=== PATIENT | male | born 1950 | race Caucasian/White ===

== ENCOUNTER → 2017-03-04 09:21 | Outpatient (CLI) | payer BC, SELFPAY ==
[2017-03-04 10:55] LABS: Absolute Lymphocyte Count 0.61 X10^3/ul (0.83-4.51); Absolute Neutrophil Count 3.1 X10^3/uL (2.0-7.7); Basophil# 0.02 X10^3/uL; Basophil% 0.5 % (0-1); Eosinophil# 0.04 X10^3/uL; Hematocrit 39.8 % (40-54); Hemoglobin 13.5 g/dl (13.0-16.5); Lymphocyte # 0.61 X10^3/ul (4.0); Lymphocyte % 14.8 % (19-41); Mean Corp Hgb Conc 33.9 g/gl (32-36); Mean Corpuscular Hgb 31.4 pg (27.0-32.0); Mean Corpuscular Volume 92.6 fL (80-94); Mean Platelet Vol. 10.2 fl (6.2-12.0); Monocyte# 0.34 X10^3/uL; Monocyte% 8.2 % (0-10); Neutrophil # 3.07 X10^3/uL (2.7-7.7); Neutrophil % 74.3 % (47-70); Platelet Count 174 K/mm3 (150-450); RBC Distribution Width CV 14.1 % (11.6-14.6); RBC Distribution Width SD 46.9 fl (35.1-43.9); White Blood Count 4.1 K/mm3 (4.4-11.0)
[2017-03-04 11:20] LABS: POSITIVE COUNT NO; POSITIVE DIFFERENTIAL NO; POSITIVE MORPHOLOGY NO
== END ==
PROVIDERS: Family Provider Family Medicine; PCP Family Medicine; Visit Provider Radiology Radiation Oncology
DX: R53.83 Other fatigue (principal)
CPT/HCPCS: 36415; 85025

== ENCOUNTER → 2017-05-15 10:16 | Outpatient (CLI) | payer BC, SELFPAY ==
[2017-05-15 12:08] LABS: Anion Gap 9 (5-15); BUN 15 mg/dL (7-18); BUN/Creat Ratio 13.6 RATIO (10-20); Calcium,Total 8.9 mg/dL (8.5-10.1); Chloride 106 mmol/L (98-107); EST Glomerular Filtration Rate 71 mL/min (>60); Est Glom Filt Rate - Afr Amer 85 mL/min (>60); Glucose 104 mg/dL (74-106); Sodium Level 140 mmol/L (136-145)
== END ==
PROVIDERS: Family Provider Family Medicine; PCP Family Medicine; Visit Provider Family Medicine
DX: I10 Essential (primary) hypertension (principal)
CPT/HCPCS: 36415; 80048

== ENCOUNTER → 2017-12-07 13:36 | Outpatient (CLI) | payer BC, SELFPAY ==
[2017-12-07 15:43] LABS: PSA,Total- Diagnostic < 0.01 ng/mL (0.0-4.0)
== END ==
PROVIDERS: Family Provider Family Medicine; PCP Family Medicine; Visit Provider Urology
DX: C61 Malignant neoplasm of prostate (principal)
CPT/HCPCS: 36415; 84153

== ENCOUNTER → 2018-05-04 11:22 | Outpatient (CLI) | payer BC, SELFPAY ==
[2018-05-04 15:07] LABS: Anion Gap 11 (5-15); BUN 13 mg/dL (7-18); BUN/Creat Ratio 12.1 RATIO (10-20); Calcium,Total 8.9 mg/dL (8.5-10.1); Chloride 107 mmol/L (98-107); Cholesterol 184 mg/dL (200); Creatinine, Serum 1.07 mg/dL (0.70-1.30); EST Glomerular Filtration Rate 73 mL/min (>60); Est Glom Filt Rate - Afr Amer 88 mL/min (>60); Glucose 86 mg/dL (74-106); High Density Lipoprotein 48 mg/dL; Potassium 3.9 mmol/L (3.5-5.1); Sodium Level 142 mmol/L (136-145); Triglycerides 124 mg/dL; Very Low Density Lipoprotein 25 mg/dL (5-40)
== END ==
PROVIDERS: Family Provider Family Medicine; PCP Family Medicine; Visit Provider Family Medicine
DX: I10 Essential (primary) hypertension (principal)
CPT/HCPCS: 36415; 80048; 80061

== ENCOUNTER → 2018-06-28 09:45 | Outpatient (CLI) | payer BC, SELFPAY ==
[2018-06-28 12:13] LABS: PSA,Total- Diagnostic < 0.01 ng/mL (0.0-4.0)
== END ==
PROVIDERS: Family Provider Family Medicine; PCP Family Medicine; Referring Provider Urology; Visit Provider Urology
DX: C61 Malignant neoplasm of prostate (principal); R97.20 Elevated prostate specific antigen [PSA]
CPT/HCPCS: 36415; 84153

== ENCOUNTER → 2019-10-10 08:24 | Outpatient (CLI) | payer MEDICARE, OTHER, SELFPAY ==
[2019-10-10 09:11] LABS: PSA,Total- Diagnostic 0.03 ng/mL (0.0-4.0)
== END ==
PROVIDERS: PCP Family Medicine; Referring Provider Urology; Visit Provider Urology
DX: C61 Malignant neoplasm of prostate (principal)
CPT/HCPCS: 36415; 84153

== ENCOUNTER → 2020-04-13 13:08 | Outpatient (CLI) | payer MEDICARE, OTHER, SELFPAY ==
[2020-04-13 15:59] LABS: PSA,Total- Diagnostic 0.26 ng/mL (0.0-4.0)
== END ==
PROVIDERS: PCP Family Medicine; Referring Provider Urology; Visit Provider Urology
DX: R97.20 Elevated prostate specific antigen [PSA] (principal)
CPT/HCPCS: 36415; 84153

== ENCOUNTER 2020-05-28 12:09 | Outpatient (RCR) | payer MEDICARE, OTHER, SELFPAY | END 2020-05-28 23:59 | LOC: IMMUN 12:09 | PROVIDERS: PCP Family Medicine; Referring Provider Family Medicine; Visit Provider Family Medicine | DX: Z23 Encounter for immunization (principal) | CPT/HCPCS: 0011A; 0012A ==

== ENCOUNTER → 2020-09-10 09:12 | Outpatient (CLI) | payer MEDICARE, OTHER, SELFPAY ==
[2020-09-10 10:34] LABS: PSA,Total- Diagnostic 0.38 ng/mL (0.0-4.0)
== END ==
PROVIDERS: PCP Family Medicine; Referring Provider Urology; Visit Provider Urology
DX: C61 Malignant neoplasm of prostate (principal)
CPT/HCPCS: 36415; 84153

== ENCOUNTER → 2020-11-23 15:47 | Outpatient (CLI) | payer MEDICARE, OTHER, SELFPAY ==
[2020-11-23 18:35] LABS: Anion Gap 6 (5-15); BUN 15 mg/dL (7-18); BUN/Creat Ratio 15.1 RATIO (10-20); Calcium,Total 9.3 mg/dL (8.5-10.1); Chloride 112 mmol/L (98-107); Cholesterol 144 mg/dL (200); Creatinine, Serum 0.99 mg/dL (0.70-1.30); EST Glomerular Filtration Rate 79 mL/min (>60); Est Glom Filt Rate - Afr Amer 95 mL/min (>60); Glucose 102 mg/dL (74-106); High Density Lipoprotein 41 mg/dL; Potassium 3.9 mmol/L (3.5-5.1); Sodium Level 144 mmol/L (136-145); Triglycerides 184 mg/dL; Very Low Density Lipoprotein 37 mg/dL (5-40)
[2020-11-23 18:52] LABS: Microalbumin,Random Urine 25.6 mg/L (NO RANGE EST.); Microalbumin:Creatinine Ratio 27.4 mg/g CRE (<30 mg/g CRE)
== END ==
PROVIDERS: PCP Family Medicine; Visit Provider Family Medicine
DX: I10 Essential (primary) hypertension (principal)
CPT/HCPCS: 36415; 80048; 80061; 82043; 82570

== ENCOUNTER → 2021-03-26 14:25 | Outpatient (CLI) | payer MEDICARE, OTHER, SELFPAY ==
[2021-03-26 18:50] LABS: PSA,Total- Diagnostic 0.78 ng/mL (0.0-4.0)
== END ==
PROVIDERS: PCP Family Medicine; Referring Provider Urology; Visit Provider Urology
DX: C61 Malignant neoplasm of prostate (principal)
CPT/HCPCS: 36415; 84153

== ENCOUNTER → 2021-08-12 | Outpatient (CLI) | payer MEDICARE, OTHER, SELFPAY ==
[2021-08-12 09:07] LABS: PSA,Total- Diagnostic 0.82 ng/mL (0.0-4.0)
== END | disposition home or self-care (01) ==
LOC: LAB 08:16
PROVIDERS: PCP Family Medicine; Referring Provider Urology; Visit Provider Urology
DX: C61 Malignant neoplasm of prostate (principal)
CPT/HCPCS: 36415; 84153

== ENCOUNTER → 2021-11-25 | Outpatient (CLI) | payer MEDICARE, OTHER, SELFPAY ==
[2021-11-25 13:05] LABS: Anion Gap 5 (5-15); BUN 13 mg/dL (7-18); BUN/Creat Ratio 12.4 RATIO (10-20); Calcium,Total 9.1 mg/dL (8.5-10.1); Chloride 108 mmol/L (98-107); Cholesterol 180 mg/dL (200); Creatinine, Serum 1.05 mg/dL (0.70-1.30); EST Glomerular Filtration Rate 74 mL/min (>60); Est Glom Filt Rate - Afr Amer 89 mL/min (>60); Glucose 93 mg/dL (74-106); High Density Lipoprotein 48 mg/dL; Potassium 4.1 mmol/L (3.5-5.1); Sodium Level 141 mmol/L (136-145); Triglycerides 134 mg/dL; Very Low Density Lipoprotein 27 mg/dL (5-40)
== END | disposition home or self-care (01) ==
LOC: MFPLAB 10:57
PROVIDERS: PCP Family Medicine; Visit Provider Family Medicine
DX: I10 Essential (primary) hypertension (principal)
CPT/HCPCS: 36415; 80048; 80061

== ENCOUNTER 2022-02-11 10:29 | Outpatient (CLI) | payer MEDICARE, OTHER, SELFPAY ==
[2022-02-11 11:46] LABS: PSA,Total- Diagnostic 0.97 ng/mL (0.0-4.0)
== END 2022-02-11 23:59 | disposition home or self-care (01) ==
LOC: LAB 10:31
PROVIDERS: PCP Family Medicine; Referring Provider Registered Nurse; Visit Provider Registered Nurse
DX: C61 Malignant neoplasm of prostate (principal)
CPT/HCPCS: 36415; 84153

== ENCOUNTER → 2022-08-11 | Outpatient (CLI) | payer MEDICARE, OTHER, SELFPAY ==
[2022-08-11 11:57] LABS: PSA,Total- Diagnostic 1.08 ng/mL (0.0-4.0)
== END | disposition home or self-care (01) ==
LOC: LAB 11:10
PROVIDERS: PCP Family Medicine; Referring Provider Urology; Visit Provider Urology
DX: C61 Malignant neoplasm of prostate (principal)
CPT/HCPCS: 36415; 84153

== ENCOUNTER → 2023-02-16 | Outpatient (CLI) | payer MEDICARE, OTHER, SELFPAY ==
[2023-02-17 09:29] LABS: PSA,Total- Diagnostic 0.94 ng/mL (0.0-4.0)
== END | disposition home or self-care (01) ==
PROVIDERS: PCP Family Medicine; Referring Provider Urology; Visit Provider Urology
DX: C61 Malignant neoplasm of prostate (principal); Z12.5 Encounter for screening for malignant neoplasm of prostate
CPT/HCPCS: 36415; 84153; G0103

== ENCOUNTER → 2023-06-02 | Outpatient (CLI) | payer MEDICARE, OTHER, SELFPAY ==
[2023-06-02 13:21] LABS: Protein, Urine (Random) 15.4 mg/dL (<11.9); Protein:Creat Ratio 143 mg/g CRE (0-200)
[2023-06-02 13:22] LABS: AST(SGOT) 20 U/L (15-37); Alanine Aminotransfer ALT/SGPT 26 U/L (16-61); Anion Gap 8 (5-15); BUN 14 mg/dL (7-18); BUN/Creat Ratio 13.6 RATIO (10-20); Calcium,Total 9.2 mg/dL (8.5-10.1); Chloride 107 mmol/L (98-107); Cholesterol 169 mg/dL (200); Creatinine, Serum 1.03 mg/dL (0.70-1.30); EST Glomerular Filtration Rate 75 mL/min (>60); Est Glom Filt Rate - Afr Amer 91 mL/min (>60); Glucose 108 mg/dL (74-106); High Density Lipoprotein 48 mg/dL; Potassium 4.3 mmol/L (3.5-5.1); Sodium Level 140 mmol/L (136-145); Triglycerides 60 mg/dL; Very Low Density Lipoprotein 12 mg/dL (5-40)
== END | disposition home or self-care (01) ==
LOC: MFPLAB 10:00
PROVIDERS: PCP Family Medicine; Visit Provider Family Medicine
DX: I10 Essential (primary) hypertension (principal)
CPT/HCPCS: 36415; 80048; 80061; 82570; 84156; 84450; 84460

== ENCOUNTER → 2023-08-26 | Outpatient (CLI) | payer MEDICARE, OTHER, SELFPAY ==
[2023-08-26 12:43] LABS: PSA,Total- Diagnostic 0.91 ng/mL (0.0-4.0)
== END | disposition home or self-care (01) ==
LOC: LAB 10:36
PROVIDERS: PCP Family Medicine; Visit Provider Nurse Practitioner
DX: C61 Malignant neoplasm of prostate (principal)
CPT/HCPCS: 36415; 84153

== ENCOUNTER → 2023-11-13 | Outpatient (CLI) | payer MEDICARE, OTHER, SELFPAY ==
--- NOTE | 2023-11-13 13:56 | CT_ITS ---
EXAM: CT PELVIS WITH INTRAVENOUS CONTRAST CLINICAL INDICATION: pelvic pain with defecation, S/P prostate radiation TECHNIQUE: Helically acquired images were obtained of the pelvis with intravenous contrast. This CT exam was performed using one or more of the following dose reduction techniques: automated exposure control, adjustment of the mA and/or kV according to patient size, and/or use of iterative reconstruction technique. CONTRAST: IV 100mL Isovue-300 COMPARISON: CT Pelvis dated 01/14/2017 and 11/10/2016 FINDINGS: KIDNEYS AND URETERS: 3 mm stone again noted within the lower pole of the right kidney. BOWEL: Diverticulosis of the colon noted without evidence of acute diverticulitis. No bowel distention. No rectal or perianal abnormality identified. APPENDIX: No evidence of acute appendicitis. INTRAPERITONEAL SPACE: Small volume ascites noted along the left lateral colonic gutter and within the pelvic portion of the peritoneal cavity. Interval development of nodularity of the greater omentum raises the possibility of peritoneal carcinomatosis. No free air. BLADDER: Urinary bladder is contracted and thick-walled. Fat stranding adjacent to the urinary bladder wall may represent acute or chronic cystitis. REPRODUCTIVE: Brachytherapy seeds noted within the prostate gland. No change in the size of the prostate. BONES/JOINTS: No suspicious lytic or blastic abnormality. SOFT TISSUES: See above. LYMPH NODES: Normal. No enlarged lymph nodes. CT/Pelvis WITH IV Contrast IMPRESSION: 1. Findings consistent with peritoneal carcinomatosis associated with small volume ascites. 2. Urinary cystitis. 3. Diverticulosis coli. 4. Right nephrolithiasis. Electronically Signed: Curtis Sharpe MD at 10:38 EDT ,
[2023-11-13 15:18] LABS: CREATININE FINGERSTICK < 1.0 mg/dL (0.70-1.30); EGFR FINGERSTICK > 60.0000 mL/min (>60)
== END | disposition home or self-care (01) ==
LOC: CT 13:55
PROVIDERS: PCP Family Medicine; Referring Provider Family Medicine; Visit Provider Family Medicine
DX: R39.89 Other symptoms and signs involving the genitourinary system (principal)
CPT/HCPCS: 72193; Q9967; A4216

== ENCOUNTER 2023-11-26 13:48 | Outpatient (CLI) | payer MEDICARE, OTHER, SELFPAY ==
[2023-11-26 15:06] LABS: Absolute Lymphocyte Count 0.82 X10^3/uL (0.83-4.51); Absolute Neutrophil Count 5.1 X10^3/uL (2.0-7.7); Basophil# 0.04 X10^3/uL; Basophil% 0.6 % (0-1); Eosinophil# 0.04 X10^3/uL; Eosinophils% 0.6 % (0-5); Hematocrit 39.4 % (40-54); Hemoglobin 12.5 g/dL (13.0-16.5); Lymphocyte # 0.82 X10^3/ul (0.83-4.51); Lymphocyte % 12.5 % (19-41); Mean Corp Hgb Conc 31.7 g/dL (32-36); Mean Corpuscular Hgb 29.4 pg (27.0-32.0); Mean Corpuscular Volume 92.7 fL (80-94); Mean Platelet Vol. 10.3 fl (6.2-12.0); Monocyte# 0.47 X10^3/uL; Monocyte% 7.2 % (0-10); NRBC Flagged by Analyzer 0 % (0-5); Neutrophil # 5.14 X10^3/uL (2.7-7.7); Neutrophil % 78.2 % (47-70); Platelet Count 325 K/mm3 (150-450); RBC Distribution Width SD 44.4 fl (35.1-43.9); Red Blood Count 4.25 M/mm3 (4.6-6.2); White Blood Count 6.6 K/mm3 (4.4-11.0)
[2023-11-26 15:32] LABS: ALB/GLOB Ratio 0.9 RATIO (0.9-2.4); AST(SGOT) 18 U/L (15-37); Alanine Aminotransfer ALT/SGPT 21 U/L (16-61); Albumin, Serum 3.2 g/dL (3.2-5.0); Alkaline Phosphatase 67 U/L (45-117); Anion Gap 5 (5-15); BUN 17 mg/dL (7-18); BUN/Creat Ratio 15.6 RATIO (10-20); Calcium,Total 9.3 mg/dL (8.5-10.1); Chloride 112 mmol/L (98-107); Creatinine, Serum 1.09 mg/dL (0.70-1.30); EST Glomerular Filtration Rate 70 mL/min (>60); Est Glom Filt Rate - Afr Amer 85 mL/min (>60); Globulin 3.4 g/dL (2.2-4.2); Glucose 99 mg/dL (74-106); Potassium 4.6 mmol/L (3.5-5.1); Protein, Total 6.6 g/dL (6.4-8.2); Sodium Level 143 mmol/L (136-145)
[2023-11-28 08:12] LABS: Carcinoembryonic Antigen 9.5 ng/mL (0.0-4.7)
== END 2023-11-26 23:59 | disposition home or self-care (01) ==
LOC: LAB 13:49
PROVIDERS: PCP Family Medicine; Referring Provider Surgery; Visit Provider Surgery
DX: C78.6 Secondary malignant neoplasm of retroperitoneum and peritoneum (principal); R18.8 Other ascites; R10.9 Unspecified abdominal pain; R93.5 Abnormal findings on diagnostic imaging of other abdominal regions, including retroperitoneum
CPT/HCPCS: 36415; 80053; 82378; 85025

== ENCOUNTER 2023-12-04 17:36 | Inpatient (IN) | payer MEDICARE, OTHER, SELFPAY ==
[2023-12-04] VITALS (8 sets, daily range): BP systolic 123–190; BP diastolic 75–102; PULSE 92–128; RESP 16–30; TEMP 36.1–36.6; O2SAT 94–98; BMI 30.4; BMI 30.2
--- NOTE | 2023-12-04 18:57 | EKG12_ITS ---
Test Reason : Blood Pressure : / mmHG Vent. Rate : 104 BPM Atrial Rate : 104 BPM P-R Int : 120 ms QRS Dur : 080 ms QT Int : 356 ms P-R-T Axes : 024 031 023 degrees QTc Int : 468 ms Sinus tachycardia with occasional Premature ventricular complexes Otherwise normal ECG Confirmed by NIKOLE WANG, EDUARD ([id number]), editor sound RYAN BUTCHER ([id number]) on 12/07/2023 6:48:29 AM Referred By: Confirmed By:EDUARD AGUSTIN MD
--- NOTE | 2023-12-04 18:59 | EDS_ITS ---
HPI History of Present Illness Chief Complaint: Chest Other Narrative Narrative: 73-year-old male past medical history of hypertension presents with his daughter for admission. He relates history that he was having discomfort when he would pass gas and was being worked up by his primary care provider. He had a CT of the pelvis which showed what he called concerning findings. He was referred to Dr. Oates, with general surgery. Patient states that he had a CT of the chest, abdomen, and pelvis performed as an outpatient at 3 PM today approximately 4 hours ago. While he was found to have carcinomatosis on the CT of the pelvis, he was also noted that he had pulmonary emboli on the CT of the chest. He denies any symptoms of pulmonary embolism including leg swelling, chest pain, or shortness of breath. Dr. Oates has reportedly already spoken with the hospitalist regarding admission to start a heparin drip so that he can be biopsied on Thursday. [facility] Medical History (Updated 12/04/23 @ 20:36 by David Schaefer MD) Abdominal carcinomatosis History of prostate cancer Obesity HLD (hyperlipidemia) Prostate CA HTN (hypertension) Ascites Home Medications ?Medication ?Instructions ?Recorded ?Last Taken ?Type amlodipine 5 mg tablet 5 mg PO QDAY 11/26/23 Unknown History hydrocortisone 2.5 % topical cream 1 applic topical Q6H PRN 11/26/23 Unknown History with perineal applicator hemorrhoids (Procto-Med HC) lisinopril 20 mg tablet 20 mg PO QDAY 11/26/23 Unknown History multivitamin 1 tab PO DAILY 11/26/23 Unknown History Allergy/AdvReac Type Severity Reaction Status Date / Time No Known Allergies Allergy Verified 12/04/23 17:37 Social History Smoking Status: Former smoker alcohol intake: current alcohol intake frequency: a few times a week ROS ROS ED ROS Narrative Constitutional: No fever, no chills. HEENT: No sore throat. No neck pain. No loss of vision. No rhinorrhea. Cardiovascular: No chest pain. No palpitations. No pedal edema. Respiratory: No cough, no shortness of breath. Abdominal: Positive pelvic/abdominal pain or discomfort. Relieved after passing gas. No nausea. No vomiting. Genitourinary: No dysuria. No hematuria. Musculoskeletal: No myalgias. No arthralgias. Neurologic: No headaches. No dizziness. No lightheadedness. Skin: No rash. No change in color. Psychiatric: No depression. No anxiety. EXAM Physical Exam Narrative Exam Narrative: Afebrile. Vital signs noted. HEENT: Normocephalic. Atraumatic. PERRL, EOMI. Neck soft and supple. No point tenderness or step off. Cardiovascular: Regular rate and rhythm with intermittent tachycardia. No murmurs, rubs, or gallops appreciated. Respiratory: No tachypnea. Lungs clear to auscultation bilaterally. Gastrointestinal: Abdomen soft, nontender, with normoactive bowel sounds. No rebound or guarding. Neurological: Awake. Alert. Nonfocal, nonlateralizing. Skin: No rash. Normal color. No pallor. Musculoskeletal: No pedal edema. Full range of motion extremities. Const Vital Signs: 12/04/23 17:37 12/04/23 19:06 12/04/23 19:36 Temperature 96.9 F L Temperature Source Temporal Pulse Rate 92 108 H Respiratory Rate 18 25 H Respiratory Effort Normal Non-Labored Blood Pressure 123/102 H 160/75 H Blood Pressure Mean 109 103 Pulse Ox 96 94 Oxygen Delivery Method Room Air Room Air 12/04/23 20:25 Temperature 97.8 F Temperature Source Pulse Rate 108 H Respiratory Rate 24 H Respiratory Effort Blood Pressure 160/75 H Blood Pressure Mean 103 Pulse Ox 94 Oxygen Delivery Method MDM MDM MDM Narrative Medical decision making narrative: I reviewed the patient's outpatient CT and he does have pulmonary emboli. He is asymptomatic with them. I ordered the heparin drip along with coagulation studies. I will also troponin and EKG. I will obtain baseline laboratories as well to check his platelet count and hemoglobin currently. I will then discussed patient with the hospitalist, Dr. Hamilton for admission. EKG was obtained and interpreted by myself independently as sinus tachycardia with PVCs at 104 bpm but no acute ST changes. No STEMI. I reviewed his laboratory work and he has normal white count of 7.5, hemoglobin stable at 12.5 with platelet count normal at 328. INR 1.2 with a PTT 31.1. Electrolyte panel is grossly unremarkable with normal sodium and normal potassium, glucose 97. High-sensitivity troponin is 7. Patient was started on a heparin drip. I discussed patient with Dr. Erendira Hamitlon for admission to the PCU. He is in stable condition. History & Record Review Discussion w/independent historian: Patient Lab Data Attestation: I reviewed the patient's lab results. Labs: Laboratory Results - last 24 hr 12/04/23 19:09 WBC 7.5 RBC 4.36 L Hgb 12.5 L Hct 39.0 L MCV 89.4 MCH 28.7 MCHC 32.1 RDW Std Deviation 41.4 RDW Coeff of [place] 12.6 Plt Count 328 MPV 9.6 Immature Gran % (Auto) 0.900 Neut % (Auto) 78.2 H Lymph % (Auto) 11.9 L [place] % (Auto) 7.8 Eos % (Auto) 0.7 Baso % (Auto) 0.5 Absolute Neuts (auto) 5.9 Absolute Lymphs (auto) 0.90 Nucleated RBC % 0 PT 15.3 H INR 1.2 APTT 31.1 Sodium 136 Potassium 3.9 Chloride 104 Carbon Dioxide 23.0 Anion Gap 9 BUN 13 Creatinine 0.98 Estim Creat Clear Calc 71.33 Est GFR (MDRD) Af Amer 96 Est GFR (MDRD) Non-Af 80 BUN/Creatinine Ratio 13.3 Glucose 97 Calcium 9.2 Total Bilirubin 0.40 AST 26 ALT 20 Alkaline Phosphatase 64 Troponin I High Sens 7 Total Protein 7.4 Albumin 3.5 Globulin 3.9 Albumin/Globulin Ratio 0.9 Discharge Plan Dx/Rx/DC Orders Clinical Impression: Abnormal CT scan, pelvis, HTN (hypertension), Acute pulmonary embolism, Carcinomatosis Disposition Disposition: Acute Care Hospital [facility]
[2023-12-04 19:18] LABS: Absolute Neutrophil Count 5.9 X10^3/uL (2.0-7.7); Basophil# 0.04 X10^3/uL; Basophil% 0.5 % (0-1); Eosinophil# 0.05 X10^3/uL; Eosinophils% 0.7 % (0-5); Hemoglobin 12.5 g/dL (13.0-16.5); Lymphocyte % 11.9 % (19-41); Mean Corp Hgb Conc 32.1 g/dL (32-36); Mean Corpuscular Hgb 28.7 pg (27.0-32.0); Mean Corpuscular Volume 89.4 fL (80-94); Mean Platelet Vol. 9.6 fl (6.2-12.0); Monocyte# 0.59 X10^3/uL; Monocyte% 7.8 % (0-10); NRBC Flagged by Analyzer 0 % (0-5); Neutrophil # 5.89 X10^3/uL (2.7-7.7); Neutrophil % 78.2 % (47-70); Platelet Count 328 K/mm3 (150-450); RBC Distribution Width CV 12.6 % (11.6-14.6); RBC Distribution Width SD 41.4 fl (35.1-43.9); Red Blood Count 4.36 M/mm3 (4.6-6.2); White Blood Count 7.5 K/mm3 (4.4-11.0)
[2023-12-04] MEDS: HEPARIN/D5w 25,000 UNITS 25,000 UNITS/250 ML IV.SOLN. 10 UNITS CONT INF ×2 (19:20)
[2023-12-04] MEDS: Heparin Injection (Vial) 5,000 UNIT/ML VIAL 4000 UNIT IV (19:21)
[2023-12-04 19:29] LABS: International Normalized Ratio 1.2; Prothrombin Time (Protime)PT. 15.3 SECONDS (11.7-14.9)
[2023-12-04 19:30] LABS: Partial Thromboplast Time 31.1 Seconds (24.1-36.2)
[2023-12-04 19:44] LABS: ALB/GLOB Ratio 0.9 RATIO (0.9-2.4); AST(SGOT) 26 U/L (15-37); Alanine Aminotransfer ALT/SGPT 20 U/L (16-61); Albumin, Serum 3.5 g/dL (3.2-5.0); Alkaline Phosphatase 64 U/L (45-117); Anion Gap 9 (5-15); BUN 13 mg/dL (7-18); BUN/Creat Ratio 13.3 RATIO (10-20); Calcium,Total 9.2 mg/dL (8.5-10.1); Chloride 104 mmol/L (98-107); Creatinine, Serum 0.98 mg/dL (0.70-1.30); EST Glomerular Filtration Rate 80 mL/min (>60); Est Glom Filt Rate - Afr Amer 96 mL/min (>60); Estimated Creatinine Clearance 71.33 ml/min; Globulin 3.9 g/dL (2.2-4.2); Glucose 97 mg/dL (74-106); Potassium 3.9 mmol/L (3.5-5.1); Protein, Total 7.4 g/dL (6.4-8.2); Sodium Level 136 mmol/L (136-145); Troponin-I HS 7 pg/mL (3.0-78.0)
--- NOTE | 2023-12-04 20:31 | PCM.HP.STD ---
HPI - General General Date of Admission: 12/04/23 Date of Service: 12/04/23 Chief Complaint: Output CT w/ + PEs HPI Narrative The patient is a 73 y/o M w/ PMHx: EtOH abuse (4 beers daily), Obesity, Hx Prostate CA status post radiation/chemotherapy diagnosed in 2017 considered in remission, HTN, HLD, Chronic normocytic anemia who presents to the [facility] ED on 12/04/23 per recommendation of his general surgeon Dr. Oates with history of ongoing abdominal pain with known history of prostate cancer with outpatient CT chest/abdomen/pelvis with contrast with positive pulmonary emboli in the segmental and subsegmental pulmonary artery branches to the right middle and lower lobes, pleural-based 11 mm nodule superior segment right lower lobe with adjacent pleural thickening as well as abdominal ascites with anterior peritoneal cake formation suspicious for metastatic disease and prior to this recent pelvis CT 11/13/2023 which had been obtained per his PCP with noted findings consistent with peritoneal carcinomatosis associate with small volume ascites with referral to surgery for consideration of biopsy at that time but given noted pulmonary emboli prompted referral to the ED for treatment and future consideration of biopsy. Patient notes persistent abdominal discomfort ranging from cramping to aching with fullness sensation this been ongoing which prompted his recent evaluation. In the ED patient initiated on heparin with bolus. Workup in the ED included T96.9, heart rate 92, BP 123/102, respiratory rate 18, 96% on room air with most recent repeat vitals heart rate 108, BP 160/75, respiratory rate 24, 94% on room air, CBC with WBC 7.5, hemoglobin 12.5, MCV 89.4, platelet 328 without shift, unremarkable coags aside PT 15.3, CMP not marked appearing, troponin 7, EKG w/ ST with no acute evidence of ischemia w/ PVC. In the ED patient initiated on heparin drip with bolus. [facility] Medical History ETOH abuse Abdominal carcinomatosis History of prostate cancer Obesity HLD (hyperlipidemia) Prostate CA HTN (hypertension) Ascites Home Medications ?Medication ?Instructions ?Recorded ?Last Taken ?Type amlodipine 5 mg tablet 5 mg PO QDAY 11/26/23 Unknown History hydrocortisone 2.5 % topical cream 1 applic topical Q6H PRN 11/26/23 Unknown History with perineal applicator hemorrhoids (Procto-Med ) lisinopril 20 mg tablet 20 mg PO QDAY 11/26/23 Unknown History multivitamin 1 tab PO DAILY 11/26/23 Unknown History Allergy/AdvReac Type Severity Reaction Status Date / Time No Known Allergies Allergy Verified 12/04/23 17:37 Family History (Updated 12/04/23 @ 22:[address] Erendira Hamilton MD) Mother Cancer Father Prostate cancer Surgical History No history of previous surgery Social History (Updated 12/04/23 @ 22:[address] Erendira Hamilton MD) household members: spouse Smoking Status: Former smoker how long ago did patient quit smoking: Quit 1979, smoked 1 ppd since teen until quit. alcohol intake: current alcohol intake frequency: 3 or more drinks per day details: Reports 4 beers or 2-24 ounce beers daily. substance use type: does not use ROS ROS Narrative Admission Review of Systems: CONSTITUTIONAL: No weight loss, fever, chills, + weakness or fatigue. HEENT: Eyes: No visual loss, blurred vision, double vision or yellow sclerae. Ears, Nose, Throat: No hearing loss, sneezing, congestion, runny nose or sore throat. SKIN: No rash or itching, lesions, wounds. CARDIOVASCULAR: No chest pain, chest pressure or chest discomfort, palpitations, edema, orthopnea, syncopal events. RESPIRATORY: No shortness of breath, cough or sputum, wheezing, hemoptysis. GASTROINTESTINAL: + anorexia, abdominal pain, abdominal fullness. No nausea, vomiting, diarrhea, melena, BRBPR. GENITOURINARY: No dysuria, frequency, urgency or retention. NEUROLOGICAL: No headache, dizziness, syncope, paralysis, ataxia, numbness or tingling in the extremities, focal weakness, change in bowel or bladder control, seizure. MUSCULOSKELETAL: + muscle, back pain, joint pain or stiffness. HEMATOLOGIC: + anemia. No bleeding or bruising. LYMPHATICS: No enlarged nodes. No history of splenectomy. PSYCHIATRIC: No history of depression or anxiety. ENDOCRINOLOGIC: No reports of sweating, cold or heat intolerance. No polyuria or polydipsia. ALLERGIES: No history of asthma, hives, eczema or rhinitis. Vital Signs Vital Signs Vital Signs: 12/04/23 17:37 12/04/23 19:06 12/04/23 19:36 Temperature 96.9 F L Temperature Source Temporal Pulse Rate 92 108 H Respiratory Rate 18 25 H Respiratory Effort Normal Non-Labored Blood Pressure 123/102 H 160/75 H Blood Pressure Mean 109 103 Pulse Ox 96 94 Oxygen Delivery Method Room Air Room Air 12/04/23 20:25 Temperature 97.8 F Temperature Source Pulse Rate 108 H Respiratory Rate 24 H Respiratory Effort Blood Pressure 160/75 H Blood Pressure Mean 103 Pulse Ox 94 Oxygen Delivery Method Weight Weight: 200 lb 9.6 oz Body Mass Index (BMI) 30.4 Physical Exam Narrative Physical Examination: General: Awake, alert, oriented x 3 and cooperative, seated upright in the ED bed, denying any acute complaints currently. Skin: Normal color, normal turgor, no icterus, no cyanosis. HEENT: AT/NC, EOMI, PERRLA, mildly dry MM, no carotid bruits or JVD noted. Lungs: Mildly diminished, greater bases, appropriate effort, no rales, ronchi or wheezing. Heart: Mildly tachycardic with regular rhythm; no gallop, rub audible. Abdomen: Soft, NTTP, mildly distended, some tympany, no fluid wave elicited, difficult discern HSM given distention. Extremities: No cyanosis, clubbing, or edema. No discomfort to palpation of bilateral calfs. Neurological: Patient awake, alert, oriented as noted, cognitive function intact; pupils equally reactive to light and accommodation, cranial nerves grossly normal, moving all 4 extremities, no focal deficits, strength mildly to moderately globally decreased Psychiatric: Affect appears fatigued otherwise normal, no acute evidence of depressive or anxiety feelings. Results Lab / Micro Data 12/04/23 19:09 12/04/23 19:09 Labs: Laboratory Results - last 24 hr 12/04/23 19:09: WBC 7.5, RBC 4.36 L, Hgb 12.5 L, Hct 39.0 L, MCV 89.4, MCH 28.7, MCHC 32.1, RDW Std Deviation 41.4, RDW Coeff of [place] 12.6, Plt Count 328, MPV 9.6, Immature Gran % (Auto) 0.900, Neut % (Auto) 78.2 H, Lymph % (Auto) 11.9 L, [place] % (Auto) 7.8, Eos % (Auto) 0.7, Baso % (Auto) 0.5, Absolute Neuts (auto) 5.9, Absolute Lymphs (auto) 0.90, Nucleated RBC % 0, PT 15.3 H, INR 1.2, APTT 31.1, Sodium 136, Potassium 3.9, Chloride 104, Carbon Dioxide 23.0, Anion Gap 9, BUN 13, Creatinine 0.98, Estim Creat Clear Calc 71.33, Est GFR (MDRD) Af Amer 96, Est GFR (MDRD) Non-Af 80, BUN/Creatinine Ratio 13.3, Glucose 97, Calcium 9.2, Total Bilirubin 0.40, AST 26, ALT 20, Alkaline Phosphatase 64, Troponin I High Sens 7, Total Protein 7.4, Albumin 3.5, Globulin 3.9, Albumin/Globulin Ratio 0.9 Assessment & Plan Assessment/Plan (1) Acute pulmonary embolism: PLAN: Plan The patient is a 73 y/o M w/ PMHx: EtOH abuse (4 beers daily), Obesity, Hx Prostate CA status post radiation/chemotherapy diagnosed in 2017 considered in remission, HTN, HLD, Chronic normocytic anemia who presents to the [facility] ED on 12/04/23 per recommendation of his general surgeon Dr. Oates with history of ongoing abdominal pain with known history of prostate cancer with outpatient CT chest/abdomen/pelvis with contrast with positive pulmonary emboli in the segmental and subsegmental pulmonary artery branches to the right middle and lower lobes, pleural-based 11 mm nodule superior segment right lower lobe with adjacent pleural thickening as well as abdominal ascites with anterior peritoneal cake formation suspicious for metastatic disease prompting referral for PE evaluation. #1. Acute pulmonary Embolism in the setting of recently noted right lower lobe adjacent pleural thickening, abdominal ascites and anterior peritoneal caking suspicious for metastatic disease of unclear etiology with persistent ongoing abdominal discomfort and fullness: EKG without acute findings, outpatient CT with noted pulmonary emboli, oxygenation currently 94% in the ED with mild tachycardia and tachypnea, troponin 7, EKG w/ ST with no acute evidence of ischemia w/ PVC. Given presentation with peritoneal carcinomatosis this certainly is his risk factor for emboli. Will admit to PCU, maintain on cardiac telemetry. Will obtain ECHO, BNP. Will continue therapeutic heparin drip regimen with pending AM insurance oral regimen investigation but also patient with need for biopsy thus would be best to continue heparin drip until biopsy able to be obtained and then transition to oral anticoagulant at that time. Will consult his general surgeon Dr. Oates. #2. Chronic normocytic anemia: Admission hemoglobin 12.5, MCV 89.4, baseline hemoglobin most recently prior 11/26/2019 412.5 and prior to this in the 13 range however this is remotely from 2017, will continue to trend CBC. #3. History of prostate cancer: Diagnosed in 2017, status post chemotherapy and radiation, patient notes it had been considered in remission #4. Hypertension: Continue home regimen including lisinopril, amlodipine, PRN hydralazine. #5. Hyperlipidemia: Not on regimen, defer to outpatient. #6. Obesity: Weight loss and lifestyle changes encouraged. #7. EtOH Abuse: Patient notes routine consumption of at least 2-24 ounce beers daily per day. Recommended decreasing this amount which was discussed at length. Will maintain on CIWA protocol to be cautious although patient denies any previous withdrawal symptoms, MVI, thiamine and folic acid. Case management consulted. #8. DVT prophylaxis: Will continue heparin drip as noted. #9. CODE status: Patient notes his medical decision maker would be his if necessary. Discussed CODE status at length including difference between FULL code, DNR-CCA and DNR-CC status. Following discussions about the differences in these status, requested Full Code status. Advanced Care Planning Face to Face Time: 16 minutes. Charges/Coding Visit Charges Inpatient E&M: 16035 Init Hosp L3 Procedures Hospitalists Procedures: 56032 Advncd Care Plan 30 Min
[2023-12-04 21:03] LABS: Magnesium 2.3 mg/dL (1.6-2.6)
[2023-12-04 21:08] LABS: BNP,B-Type NATRIURETIC PEPTIDE 44.2 pg/mL (0-100)
--- NOTE | 2023-12-04 21:46 | ECHOD_ITS ---
Reason For Study: PULMONARY EMBOLISM Procedure This was a 2D Doppler, Color Flow transthoracic echocardiogram. RV Strain attempted, but unable to accurately track images. Exam performed in department. Left Ventricle Normal LV size. Left ventricular systolic function is normal. The left ventricular ejection fraction is 65 %. Stage 1 diastolic dysfunction. No regional wall motion abnormalities noted. Right Ventricle Normal RV size. Normal systolic function. Atria Normal left atrium. Normal right atrium. Mitral Valve Normal mitral valve. Tricuspid Valve Normal tricuspid valve. Mild (1+) tricuspid valve insufficiency. Pulmonary artery systolic pressure is 36 mmHg. Aortic Valve Normal aortic valve. Trisinus/trileaflet aortic valve. Pulmonic Valve Normal pulmonic valve. Great Vessels Normal aortic root. Pericardium/Pleural No pericardial effusion. MMode/2D Measurements & Calculations LVIDd: 4.5 cm IVSd: 1.3 cm LVOT diam: 2.0 cm LVIDs: 2.5 cm LVPWd: 1.2 cm LVOT area: 3.0 cm2 RVDd: 4.4 cm FS: 44.9 % Ao root diam: 3.3 cm LAV(MOD-bp): 56.4 ml LVAd ap4: 21.9 cm2 LAV(MOD-bp) Indexed: 27.7 ml/m2 LVLd ap4: 7.0 cm LAV(MOD-sp2): 55.2 ml EDV(MOD-sp4): 56.3 ml LAV(MOD-sp4): 51.2 ml EDV(sp4-el): 58.0 ml LVAs ap4: 11.4 cm2 LVLs ap4: 5.9 cm ESV(MOD-sp4): 20.6 ml ESV(sp4-el): 18.9 ml EF(MOD-sp4): 63.5 % EF(sp4-el): 67.4 % LVAd ap2: 20.9 cm2 SV(MOD-sp4): 35.8 ml SV(MOD-sp2): 38.8 ml LVLd ap2: 6.7 cm EDV(MOD-sp2): 55.0 ml EDV(sp2-el): 55.1 ml LVAs ap2: 9.8 cm2 LVLs ap2: 5.4 cm ESV(MOD-sp2): 16.2 ml ESV(sp2-el): 15.0 ml EF(MOD-sp2): 70.6 % SV(sp4-el): 39.1 ml LA dimension(2D): 4.0 cm LA A4 area: 18.7 cm2 RA A4 area: 15.4 cm2 TAPSE: 2.3 cm Time Measurements MV dec time: 0.16 sec Doppler Measurements & Calculations MV E max kyaw: 74.5 cm/sec Lat Peak E' Kyaw: 10.3 cm/sec Med Peak E' Kyaw: 8.6 cm/sec MV A max kyaw: 76.7 cm/sec E/E' lat: 7.3 E/E' med: 8.7 MV E/A: 0.97 Ao V2 max: 132.7 cm/sec LV V1 max: 105.5 cm/sec MV dec slope: 465.6 cm/sec2 Ao max P.0 mmHg LV V1 max P.4 mmHg Ao V2 mean: 99.5 cm/sec LV V1 mean P.2 mmHg Ao mean P.2 mmHg LV V1 mean: 69.2 cm/sec Ao V2 VTI: 20.5 cm LV V1 VTI: 18.2 cm AV (velocity ratio): 0.89 CORIE(I,D): 2.7 cm2 CORIE(V,D): 2.4 cm2 SV(LVOT): 55.4 ml PA V2 max: 96.5 cm/sec TR max kyaw: 287.2 cm/sec PA max PG (full): 1.1 mmHg TR max P.0 mmHg ECHO/Echo Complete Interpretation Summary The left ventricular ejection fraction is 65 %. Left ventricular systolic function is normal. Normal LV size. Stage 1 diastolic dysfunction. Mild (1+) tricuspid valve insufficiency. Pulmonary artery systolic pressure is 36 mmHg. Ordering Physician: Erendira Hamilton Referring Physician: Enedina Chaudhary M.D. Performed By: Yumiko Washington RDCS
[2023-12-04] MEDS: 0.9% Normal Saline (1000mL) 1,000 ML 100 ML IV (23:16)
[2023-12-05 01:43] LABS: Partial Thromboplast Time 42.2 Seconds (24.1-36.2)
[2023-12-05 03:35] VITALS: BP 134/72; PULSE 88; RESP 18; TEMP 36.1; O2SAT 97
[2023-12-05 04:54] VITALS: BMI 30.2
--- NOTE | 2023-12-05 06:49 | CON.PCM.SX_ITS ---
Assessment & Plan Assessment/Plan (1) Abnormal CT scan, pelvis: (2) Umbilical hernia: PLAN: Plan The patient had an abnormal CT scans concerning for carcinomatosis with omental caking. The patient also has an umbilical hernia and it appears some of this fat is protruding through the hernia. I would like to take the patient Thursday for surgery to biopsy some of this omentum through the umbilical hernia and repair the umbilical hernia in the process. I will also try to drain what ever ascites I can suction for cytology. Patient is agreeable. I will add him on for Thursday for surgery. Continue heparin drip until 6 hours before surgery. Zack Oates MD Pager: [facility] [address] [place] [address], [address] [place] [address] Office: HPI Consult Data Date of Consult: 12/05/23 HPI Narrative HPI Narrative: JACOB FISCHER, is a 73 M who presents with PE after CT scan. The patient was sent to my office for carcinomatosis on a CT scan for biopsy. He was scheduled for biopsy and a CT scan of his chest abdomen pelvis. CT scan of his chest revealed PEs and so he was sent to the emergency room and admitted and placed on a heparin drip. Patient has no new complaints at this time. He is not complaining of shortness of breath or chest pain. [facility] Medical History ETOH abuse Abdominal carcinomatosis History of prostate cancer Obesity HLD (hyperlipidemia) Prostate CA HTN (hypertension) Ascites Home Medications ?Medication ?Instructions ?Recorded ?Last Taken ?Type amlodipine 5 mg tablet 5 mg PO QDAY 11/26/23 Unknown History hydrocortisone 2.5 % topical cream 1 applic topical Q6H PRN 11/26/23 Unknown History with perineal applicator hemorrhoids (Pro[facility]o-[facility] HC) lisinopril 20 mg tablet 20 mg PO QDAY 11/26/23 Unknown History multivitamin 1 tab PO DAILY 11/26/23 Unknown History Allergy/AdvReac Type Severity Reaction Status Date / Time No Known Allergies Allergy Verified 12/04/23 17:37 Family History (Updated 12/04/23 @ 22:[address] Erendira Hamilton MD) Mother Cancer Father Prostate cancer Surgical History No history of previous surgery Social History (Updated 12/04/23 @ 22:[address] Erendira Hamilton MD) household members: spouse Smoking Status: Former smoker how long ago did patient quit smoking: Quit 1979, smoked 1 ppd since teen until quit. alcohol intake: current alcohol intake frequency: 3 or more drinks per day details: Reports 4 beers or 2-24 ounce beers daily. substance use type: does not use ROS Constitutional Constitutional: Denies anorexia, chills or fatigue Eyes Eyes: Denies blurry vision ENT HEENT: Denies abnormal hearing Cardiovascular Cardiovascular: Denies chest pain or dyspnea Respiratory/Chest Respiratory/Chest: Denies cough or dyspnea Gastrointestinal Gastrointestinal: Reports abdominal pain; Denies diarrhea, dysphagia, nausea or vomiting Genitourinary Genitourinary: Denies change in urinary stream Musculoskeletal Musculoskeletal: Denies difficulty walking Integumentary Integumentary: Denies jaundice Neurologic Neurologic: Denies dizziness Psychiatric Psychiatric: Denies anxiety or depression Endocrine Endocrinology: Denies flushing Physical Exam Const alert and oriented x3 HEENT normocephalic Head and Scalp: normal to inspection Eyes PERRL Neck full ROM Chest inspection of chest normal Resp normal respiratory effort Cardio Rate: regular rate Rhythm: regular rhythm GI soft to palpation Inspection: abdominal distention Palpation: hernia umbilical Extremity normal to inspection Lab / Micro Data 12/04/23 19:09 12/04/23 19:09 Labs: Laboratory Results - last 24 hr 12/04/23 19:09: WBC 7.5, RBC 4.36 L, Hgb 12.5 L, Hct 39.0 L, MCV 89.4, MCH 28.7, MCHC 32.1, RDW Std Deviation 41.4, RDW Coeff of [place] 12.6, Plt Count 328, MPV 9.6, Immature Gran % (Auto) 0.900, Neut % (Auto) 78.2 H, Lymph % (Auto) 11.9 L, [place] % (Auto) 7.8, Eos % (Auto) 0.7, Baso % (Auto) 0.5, Absolute Neuts (auto) 5.9, Absolute Lymphs (auto) 0.90, Nucleated RBC % 0, PT 15.3 H, INR 1.2, APTT 31.1, Sodium 136, Potassium 3.9, Chloride 104, Carbon Dioxide 23.0, Anion Gap 9, BUN 13, Creatinine 0.98, Estim Creat Clear Calc 71.33, Est GFR (MDRD) Af Amer 96, Est GFR (MDRD) Non-Af 80, BUN/Creatinine Ratio 13.3, Glucose 97, Calcium 9.2, Magnesium 2.3, Total Bilirubin 0.40, AST 26, ALT 20, Alkaline Phosphatase 64, Troponin I High Sens 7, B-Natriuretic Peptide 44.2, Total Protein 7.4, Albumin 3.5, Globulin 3.9, Albumin/Globulin Ratio 0.9 12/05/23 01:25: APTT 42.2 H
[2023-12-05 07:56] VITALS: O2SAT 97
--- NOTE | 2023-12-05 07:58 | PN.HOSP_ITS ---
Reason for Visit Reason for Visit: Diagnoses Other pulmonary embolism without acute cor pulmonale (12/04/23) Umbilical hernia without obstruction or gangrene (12/04/23) Abnormal findings on diagnostic imaging of other abdominal regions, including retroperitoneum (12/04/23) Objective Data Objective Data Vital Signs: Vital Signs Temp Pulse Resp BP Pulse Ox O2 Del Method 97.0 F L 88 18 134/72 H 97 Room Air 12/05/23 03:35 12/05/23 03:35 12/05/23 03:35 12/05/23 03:35 12/05/23 03:35 12/05/23 03:35 Oxygen Delivery Method Room Air Weight: 198 lb 10.184 oz Body Mass Index (BMI) 30.2 Intake & Output: Intake and Output for Last 24 Hours 12/03/23 12/04/23 12/05/23 23:59 23:59 23:59 Intake Total 816.67 / 816.67 Balance 816.67 / 816.67 Lab / Micro Data 12/05/23 07:35 12/05/23 07:35 Labs: Laboratory Results - last 24 hr 12/04/23 19:09: WBC 7.5, RBC 4.36 L, Hgb 12.5 L, Hct 39.0 L, MCV 89.4, MCH 28.7, MCHC 32.1, RDW Std Deviation 41.4, RDW Coeff of [place] 12.6, Plt Count 328, MPV 9.6, Immature Gran % (Auto) 0.900, Neut % (Auto) 78.2 H, Lymph % (Auto) 11.9 L, [place] % (Auto) 7.8, Eos % (Auto) 0.7, Baso % (Auto) 0.5, Absolute Neuts (auto) 5.9, Absolute Lymphs (auto) 0.90, Nucleated RBC % 0, PT 15.3 H, INR 1.2, APTT 31.1, Sodium 136, Potassium 3.9, Chloride 104, Carbon Dioxide 23.0, Anion Gap 9, BUN 13, Creatinine 0.98, Estim Creat Clear Calc 71.33, Est GFR (MDRD) Af Amer 96, Est GFR (MDRD) Non-Af 80, BUN/Creatinine Ratio 13.3, Glucose 97, Calcium 9.2, Magnesium 2.3, Total Bilirubin 0.40, AST 26, ALT 20, Alkaline Phosphatase 64, Troponin I High Sens 7, B-Natriuretic Peptide 44.2, Total Protein 7.4, Albumin 3.5, Globulin 3.9, Albumin/Globulin Ratio 0.9 12/05/23 01:25: APTT 42.2 H Physical Exam Narrative Seen and examined. Patient admitted for diagnosed bilateral segmental/subsegmental PE on CTPA with no acute symptoms related to chest including chest pain or shortness of breath or syncope. Patient further said that he has history of prostate cancer but was treated with radiotherapy and in remission by Dr. Dumas. He states that he learned to urinate every 4 hours to avoid urine retention and feeling of hesitancy or difficulty in starting the urinary stream. Denies burning micturition. This problem has not been evaluated by urologist. Has chronic lower abdominal/suprapubic pressure/pain intermittently and it goes away with passing gas. Physical exam: General: Alert, Oriented x3, Cooperative HEENT: Atraumatic, PERRLA, EOMI, Normocephalic Oral: No Gingival or Mucosal Lesions/ Ulcerations Neck: Supple, No JVD, Negative Carotid Bruits Chest wall/Lungs: Air entry equal in bilateral lung bases. No crepitation/rhonchi Cardiovascular: Regular rate, Regular Rhythm, Normal S1, Normal S2, No M/G/R Abdomen: Small umbilical hernia, reducible. Bowel Sounds Present, Soft, Non Tender, Non-Distended : No dysuria. No renal angle tenderness. No suprapubic tenderness. Extremities: No edema, Capillary Refill Less than 3 Seconds Skin: No rashes, No breakdown Musculoskeletal: No Tenderness to Palpation of Joints or Extremities. ROM full and intact Neurological: Cranial nerves II-XII grossly intact, DTR 2+/4. No acute focal neurological deficit. Psych/Mental Status: Normal Affect, Appropriate. Assessment & Plan Assessment/Plan (1) Acute pulmonary embolism: PLAN: Plan The patient is a 73 y/o M was sent to ED by Dr. Oates after CT scan showed PE. Patient has ongoing abdominal pain with history of prostate cancer with outpatient CT chest abdomen pelvis showed pulmonary emboli in segmental and subsegmental pulmonary artery branches of right middle and lower lobes. Pleural-based 11 mm nodule superior segment RLL with adjacent pleural thickening and abdominal ascites with anterior peritoneal caking suspicious for metastatic disease. #1. Acute pulmonary Embolism in the setting of recently noted right lower lobe adjacent pleural thickening, abdominal ascites and anterior peritoneal caking suspicious for metastatic disease of unclear etiology: EKG without acute findings but PVC. Pulse ox 94% in ED with mild tachypnea and tachycardia. Troponin 7. BNP 44.2. On IV heparin drip. Echo is ordered Patient was seen by Dr. Oates. Patient also has umbilical hernia with sac containing fat. Plan for surgery on Thursday for omental biopsy and repair of umbilical hernia. #2. Chronic normocytic anemia: Admission hemoglobin 12.5, MCV 89.4, baseline hemoglobin 11/26/2023 12.5. H&H 11.0/34.7. Mild decrease but does not meet criteria for acute anemia #3. History of prostate cancer: Diagnosed in 2017, status post chemotherapy and radiation, patient notes it had been considered in remission. Patient complain of deliberately going to bathroom every 4 hours to avoid urinary hesitancy or difficulty starting urinary stream and retention. #4. Hypertension: Continue home regimen including lisinopril, amlodipine. #5. Hyperlipidemia: Not on regimen, defer to outpatient. #6. Obesity: Weight loss and lifestyle changes encouraged. #7. EtOH Abuse: Patient notes routine consumption of at least 2-24 ounce beers daily per day. Recommended decreasing this amount which was discussed at length. Will maintain on CIWA protocol to be cautious although patient denies any previous withdrawal symptoms, MVI, thiamine and folic acid. Case management consulted. #8. DVT prophylaxis: Will continue heparin drip as noted. #9. CODE status: Patient notes his medical decision maker would be his if necessary. Discussed CODE status at length including difference between FULL code, DNR-CCA and DNR-CC status. Laboratory Results 12/04/23 19:09: WBC 7.5, RBC 4.36 L, Hgb 12.5 L, Hct 39.0 L, MCV 89.4, MCH 28.7, MCHC 32.1, RDW Std Deviation 41.4, RDW Coeff of [place] 12.6, Plt Count 328, MPV 9.6, Immature Gran % (Auto) 0.900, Neut % (Auto) 78.2 H, Lymph % (Auto) 11.9 L, [place] % (Auto) 7.8, Eos % (Auto) 0.7, Baso % (Auto) 0.5, Absolute Neuts (auto) 5.9, Absolute Lymphs (auto) 0.90, Nucleated RBC % 0, PT 15.3 H, INR 1.2, APTT 31.1, Sodium 136, Potassium 3.9, Chloride 104, Carbon Dioxide 23.0, Anion Gap 9, BUN 13, Creatinine 0.98, Estim Creat Clear Calc 71.33, Est GFR (MDRD) Af Amer 96, Est GFR (MDRD) Non-Af 80, BUN/Creatinine Ratio 13.3, Glucose 97, Calcium 9.2, Magnesium 2.3, Total Bilirubin 0.40, AST 26, ALT 20, Alkaline Phosphatase 64, Troponin I High Sens 7, B-Natriuretic Peptide 44.2, Total Protein 7.4, Albumin 3.5, Globulin 3.9, Albumin/Globulin Ratio 0.9 12/05/23 01:25: APTT 42.2 H 12/05/23 07:35: WBC 5.7, RBC 3.86 L, Hgb 11.0 L, Hct 34.7 L, MCV 89.9, MCH 28.5, MCHC 31.7 L, RDW Std Deviation 42.4, RDW Coeff of [place] 12.8, Plt Count 290, MPV 10.0, Immature Gran % (Auto) 0.900, Neut % (Auto) 81.9 H, Lymph % (Auto) 9.1 L, [place] % (Auto) 7.3, Eos % (Auto) 0.5, Baso % (Auto) 0.3, Absolute Neuts (auto) 4.7, Absolute Lymphs (auto) 0.52 L, Nucleated RBC % 0, APTT Pending, Sodium Pending, Potassium Pending, Chloride Pending, Carbon Dioxide Pending, Anion Gap Pending, BUN Pending, Creatinine Pending, Est GFR (MDRD) Af Amer Pending, Est GFR (MDRD) Non-Af Pending, BUN/Creatinine Ratio Pending, Glucose Pending, Calcium Pending, Total Bilirubin Pending, AST Pending, ALT Pending, Alkaline Phosphatase Pending, Total Protein Pending, Albumin Pending Charges/Coding Visit Charges Inpatient E&M: 40983 Subs Hosp L2
[2023-12-05 08:03] LABS: Absolute Lymphocyte Count 0.52 X10^3/uL (0.83-4.51); Absolute Neutrophil Count 4.7 X10^3/uL (2.0-7.7); Basophil# 0.02 X10^3/uL; Basophil% 0.3 % (0-1); Eosinophil# 0.03 X10^3/uL; Eosinophils% 0.5 % (0-5); Hematocrit 34.7 % (40-54); Lymphocyte # 0.52 X10^3/ul (0.83-4.51); Lymphocyte % 9.1 % (19-41); Mean Corp Hgb Conc 31.7 g/dL (32-36); Mean Corpuscular Hgb 28.5 pg (27.0-32.0); Mean Corpuscular Volume 89.9 fL (80-94); Monocyte# 0.42 X10^3/uL; Monocyte% 7.3 % (0-10); NRBC Flagged by Analyzer 0 % (0-5); Neutrophil # 4.68 X10^3/uL (2.7-7.7); Neutrophil % 81.9 % (47-70); POSITIVE DIFFERENTIAL YES; Platelet Count 290 K/mm3 (150-450); RBC Distribution Width CV 12.8 % (11.6-14.6); RBC Distribution Width SD 42.4 fl (35.1-43.9); Red Blood Count 3.86 M/mm3 (4.6-6.2); White Blood Count 5.7 K/mm3 (4.4-11.0)
[2023-12-05 08:09] LABS: Partial Thromboplast Time 40.8 Seconds (24.1-36.2)
[2023-12-05 08:10] VITALS: BP 151/83; PULSE 98; RESP 14; TEMP 37.1; O2SAT 95
[2023-12-05 08:41] LABS: ALB/GLOB Ratio 0.9 RATIO (0.9-2.4); AST(SGOT) 15 U/L (15-37); Alanine Aminotransfer ALT/SGPT 18 U/L (16-61); Albumin, Serum 2.8 g/dL (3.2-5.0); Alkaline Phosphatase 52 U/L (45-117); Anion Gap 7 (5-15); BUN 10 mg/dL (7-18); BUN/Creat Ratio 11.3 RATIO (10-20); Calcium,Total 8.3 mg/dL (8.5-10.1); Chloride 107 mmol/L (98-107); Creatinine, Serum 0.89 mg/dL (0.70-1.30); EST Glomerular Filtration Rate 89 mL/min (>60); Est Glom Filt Rate - Afr Amer 108 mL/min (>60); Estimated Creatinine Clearance 78.19 ml/min; Globulin 3.2 g/dL (2.2-4.2); Glucose 117 mg/dL (74-106); Potassium 3.9 mmol/L (3.5-5.1); Sodium Level 137 mmol/L (136-145)
[2023-12-05] MEDS: Heparin Injection (Vial) 5,000 UNIT/ML VIAL IV (09:04)
[2023-12-05] MEDS: HEPARIN/D5w 25,000 UNITS 25,000 UNITS/250 ML IV.SOLN. 11 UNITS CONT INF (09:05)
--- NOTE | 2023-12-05 11:15 | CASEMGMT ---
RN CM ANSWERER CM?to room to meet with patient for initial transition planning/care coordination assessment. RN CM?introduced self and role at [facility]. Pt voices understanding and consents to assessment?at this time. Pt resting in bed in no distress at this time. Pt is A/O at this time and answers all questions appropriately. Care providers, pharmacy, and demographics verified/updated at this time. PCP: Dr Chaudhary Specialists:Dr Dumas-urologist, Dr Oates-surgeon, Dr West-Derm Preferred Pharmacy: [facility] Insurance: MCR, MMO Prescription Benefit: yes Living Will/HPOA: Has both LW and HCPOA, who is his . He states is bringing in documents to [facility] today. LNOK: Linn. Dtr, Clarissa. Living Arrangements: Lives w/ in one-story home w/basement w/5 steps to enter home. Denies difficulty w/stairs. Independent w/ADL's. and pt share home mgnt tasks. 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 Transportation:?Pt and both drive. DME: Denies using any DME and denies needs. HHC/SNF: No hx of either. Has done OP therapy in the past after shoulder injury. No need identified. Pt wishes to return home and states has no concerns with going home at time of discharge. Pt drinks 2 beers/day, stating he has been doing since he retired, about 4 years ago. He states he does not feel it is an issue and declines wanting brenda ETOH resources for quitting. CM?to follow for any further discharge planning/needs. Pt voices no further concerns/needs at this time. Advised pt to ask for CM?if any further questions/concerns/needs arise. Voices understanding. PLAN: Home. Follow for anti-coag @ dc. Brianna FERNANDEZ RN, CM
[2023-12-05 14:22] VITALS: BP 142/81; PULSE 94; RESP 16; TEMP 37.1; O2SAT 96
[2023-12-05 15:36] LABS: Partial Thromboplast Time 46.3 Seconds (24.1-36.2)
[2023-12-05] MEDS: HEPARIN/D5w 25,000 UNITS 25,000 UNITS/250 ML IV.SOLN. 14 UNITS CONT INF (15:49)
[2023-12-05] MEDS: amLODIPine 5 MG Tablet PO (17:53)
[2023-12-05] MEDS: Lisinopril 20 MG Tablet PO (17:53)
[2023-12-05] MEDS: Folic Acid 1 MG Tablet PO (17:54)
[2023-12-05] MEDS: Multivitamins,Ther W-Minerals Tablet 1 TABLET PO (17:54)
[2023-12-05] MEDS: Thiamine Hydrochloride 100 MG Tablet PO (17:54)
[2023-12-05 20:45] VITALS: BP 148/76; PULSE 100; RESP 16; TEMP 37; O2SAT 98
[2023-12-05] MEDS: Acetaminophen 325 MG Tablet 650 MG PO (20:46)
[2023-12-05 22:13] LABS: Partial Thromboplast Time 48.8 Seconds (24.1-36.2)
[2023-12-06 03:00] VITALS: BP 130/95; PULSE 81; RESP 16; TEMP 36.7; O2SAT 97
[2023-12-06 05:00] LABS: Absolute Lymphocyte Count 0.65 X10^3/uL (0.83-4.51); Absolute Neutrophil Count 4.7 X10^3/uL (2.0-7.7); Basophil# 0.04 X10^3/uL; Basophil% 0.7 % (0-1); Eosinophil# 0.05 X10^3/uL; Eosinophils% 0.8 % (0-5); Hematocrit 37.2 % (40-54); Hemoglobin 11.8 g/dL (13.0-16.5); Lymphocyte # 0.65 X10^3/ul (0.83-4.51); Lymphocyte % 10.9 % (19-41); Mean Corp Hgb Conc 31.7 g/dL (32-36); Mean Corpuscular Hgb 28.9 pg (27.0-32.0); Mean Platelet Vol. 9.7 fl (6.2-12.0); Monocyte# 0.51 X10^3/uL; Monocyte% 8.6 % (0-10); NRBC Flagged by Analyzer 0 % (0-5); Neutrophil # 4.66 X10^3/uL (2.7-7.7); Neutrophil % 78.2 % (47-70); Platelet Count 271 K/mm3 (150-450); RBC Distribution Width CV 12.7 % (11.6-14.6); RBC Distribution Width SD 42.4 fl (35.1-43.9); Red Blood Count 4.09 M/mm3 (4.6-6.2)
[2023-12-06 05:13] LABS: Partial Thromboplast Time 56.7 Seconds (24.1-36.2)
[2023-12-06 05:28] LABS: Anion Gap 7 (5-15); BUN 10 mg/dL (7-18); BUN/Creat Ratio 11.5 RATIO (10-20); Calcium,Total 8.7 mg/dL (8.5-10.1); Chloride 108 mmol/L (98-107); Creatinine, Serum 0.87 mg/dL (0.70-1.30); EST Glomerular Filtration Rate 91 mL/min (>60); Est Glom Filt Rate - Afr Amer 110 mL/min (>60); Estimated Creatinine Clearance 79.98 ml/min; Glucose 124 mg/dL (74-106); Potassium 3.6 mmol/L (3.5-5.1); Sodium Level 137 mmol/L (136-145)
[2023-12-06 08:05] VITALS: O2SAT 96
[2023-12-06 09:00] VITALS: BP 137/80; PULSE 94; RESP 18; TEMP 36.8; O2SAT 96
[2023-12-06] MEDS: Folic Acid 1 MG Tablet PO (09:23)
[2023-12-06] MEDS: Multivitamins,Ther W-Minerals Tablet 1 TABLET PO (09:23)
[2023-12-06] MEDS: Thiamine Hydrochloride 100 MG Tablet PO (09:23)
[2023-12-06] MEDS: HEPARIN/D5w 25,000 UNITS 25,000 UNITS/250 ML IV.SOLN. 15 UNITS CONT INF (10:14)
[2023-12-06 11:12] LABS: Partial Thromboplast Time 47.2 Seconds (24.1-36.2)
--- NOTE | 2023-12-06 13:56 | PN.HOSP_ITS ---
Reason for Visit Reason for Visit: Diagnoses Other pulmonary embolism without acute cor pulmonale (12/04/23) Umbilical hernia without obstruction or gangrene (12/04/23) Abnormal findings on diagnostic imaging of other abdominal regions, including retroperitoneum (12/04/23) Objective Data Objective Data Vital Signs: Vital Signs Temp Pulse Resp BP Pulse Ox O2 Del Method 98.2 F 94 18 137/80 H 96 Room Air 12/06/23 09:00 12/06/23 09:00 12/06/23 09:00 12/06/23 09:00 12/06/23 09:00 12/06/23 09:00 Oxygen Delivery Method Room Air Weight: 198 lb 10.184 oz Body Mass Index (BMI) 30.2 Intake & Output: Intake and Output for Last 24 Hours 12/04/23 12/05/23 12/06/23 23:59 23:59 23:59 Intake Total 2558.12 / 2558.12 531.12 / 531.12 Balance 2558.12 / 2558.12 531.12 / 531.12 Lab / Micro Data 12/06/23 04:45 12/06/23 04:45 Labs: Laboratory Results - last 24 hr 12/05/23 15:10: APTT 46.3 H 12/05/23 21:53: APTT 48.8 H 12/06/23 04:45: WBC 6.0, RBC 4.09 L, Hgb 11.8 L, Hct 37.2 L, MCV 91.0, MCH 28.9, MCHC 31.7 L, RDW Std Deviation 42.4, RDW Coeff of [place] 12.7, Plt Count 271, MPV 9.7, Immature Gran % (Auto) 0.800, Neut % (Auto) 78.2 H, Lymph % (Auto) 10.9 L, [place] % (Auto) 8.6, Eos % (Auto) 0.8, Baso % (Auto) 0.7, Absolute Neuts (auto) 4.7, Absolute Lymphs (auto) 0.65 L, Nucleated RBC % 0, APTT 56.7 H, Sodium 137, Potassium 3.6, Chloride 108 H, Carbon Dioxide 22.0, Anion Gap 7, BUN 10, Creatinine 0.87, Estim Creat Clear Calc 79.98, Est GFR (MDRD) Af Amer 110, Est GFR (MDRD) Non-Af 91, BUN/Creatinine Ratio 11.5, Glucose 124 H, Calcium 8.7 12/06/23 10:47: APTT 47.2 H Radiography Diagnostic Testing: Radiology Impression Echocardiogram 12/04/23 21:46 Interpretation Summary The left ventricular ejection fraction is 65 %. Left ventricular systolic function is normal. Normal LV size. Stage 1 diastolic dysfunction. Mild (1+) tricuspid valve insufficiency. Pulmonary artery systolic pressure is 36 mmHg. Ordering Physician: Erendira Hamilton Referring Physician: Enedina Chaudhary M.D. Performed By: Yumiko Washington RDCS Physical Exam Narrative Seen and examined. Patient is doing well. No acute issues. Plan for surgery on Thursday. No abdominal pain. No shortness of breath Physical exam: General: Alert, Oriented x3, Cooperative HEENT: Atraumatic, PERRLA, EOMI, Normocephalic Oral: No Gingival or Mucosal Lesions/ Ulcerations Neck: Supple, No JVD, Negative Carotid Bruits Chest wall/Lungs: Air entry equal in bilateral lung bases. No crepitation/rhonchi Cardiovascular: Regular rate, Regular Rhythm, Normal S1, Normal S2, No M/G/R Abdomen: Small umbilical hernia, reducible. Bowel Sounds Present, Soft, Non Tender, Non-Distended : No dysuria. No renal angle tenderness. No suprapubic tenderness. Extremities: No edema, Capillary Refill Less than 3 Seconds Skin: No rashes, No breakdown Musculoskeletal: No Tenderness to Palpation of Joints or Extremities. ROM full and intact Neurological: Cranial nerves II-XII grossly intact, DTR 2+/4. No acute focal neurological deficit. Psych/Mental Status: Normal Affect, Appropriate. Assessment & Plan Assessment/Plan (1) Acute pulmonary embolism: PLAN: Plan The patient is a 73 y/o M was sent to ED by Dr. Oates after CT scan showed PE. Patient has ongoing abdominal pain with history of prostate cancer therefore outpatient CT chest abdomen pelvis was ordered and showed pulmonary emboli in segmental and subsegmental pulmonary artery branches of right middle and lower lobes. Pleural-based 11 mm nodule superior segment RLL with adjacent pleural thickening and abdominal ascites with anterior peritoneal caking suspicious for metastatic disease. #1. Acute pulmonary Embolism in the setting of recently noted right lower lobe adjacent pleural thickening, abdominal ascites and anterior peritoneal caking suspicious for metastatic disease of unclear etiology: EKG without acute findings but PVC. Pulse ox 94% in ED with mild tachypnea and tachycardia. Troponin 7. BNP 44.2. On IV heparin drip. Echo is ordered Patient was seen by Dr. Oates. Patient also has umbilical hernia with sac containing fat. 12/05: Has chronic lower abdominal/suprapubic pressure/pain intermittently and it goes away with passing gas. Plan for surgery on Thursday for omental biopsy and repair of umbilical hernia. #2. Chronic normocytic anemia: Admission hemoglobin 12.5, MCV 89.4, baseline hemoglobin 11/26/2023 12.5. H&H 11.0/34.7. Mild decrease but does not meet criteria for acute anemia #3. History of prostate cancer: Diagnosed in 2017, status post chemotherapy and radiation, patient notes it had been considered in remission. Patient complain of deliberately going to bathroom every 4 hours to avoid urinary hesitancy or difficulty starting urinary stream and retention. Denies burning micturition. This problem has not been evaluated by urologist. Advised to follow-up urologist Dr. Disla outpatient. #4. Hypertension: Continue home regimen including lisinopril, amlodipine. #5. Hyperlipidemia: Not on regimen, defer to outpatient. #6. Obesity: Weight loss and lifestyle changes encouraged. #7. EtOH Abuse: Patient notes routine consumption of at least 2-24 ounce beers daily per day. Recommended decreasing this amount which was discussed at length. Will maintain on CIWA protocol to be cautious although patient denies any previous withdrawal symptoms, MVI, thiamine and folic acid. Case management consulted. #8. DVT prophylaxis: continue heparin drip as noted. #9. CODE status: Patient notes his medical decision maker would be his if necessary. Discussed CODE status at length including difference between FULL code, DNR-CCA and DNR-CC status. Laboratory Results 12/05/23 15:10: APTT 46.3 H 12/05/23 21:53: APTT 48.8 H 12/06/23 04:45: WBC 6.0, RBC 4.09 L, Hgb 11.8 L, Hct 37.2 L, MCV 91.0, MCH 28.9, MCHC 31.7 L, RDW Std Deviation 42.4, RDW Coeff of [place] 12.7, Plt Count 271, MPV 9.7, Immature Gran % (Auto) 0.800, Neut % (Auto) 78.2 H, Lymph % (Auto) 10.9 L, [place] % (Auto) 8.6, Eos % (Auto) 0.8, Baso % (Auto) 0.7, Absolute Neuts (auto) 4.7, Absolute Lymphs (auto) 0.65 L, Nucleated RBC % 0, APTT 56.7 H, Sodium 137, Potassium 3.6, Chloride 108 H, Carbon Dioxide 22.0, Anion Gap 7, BUN 10, Creatinine 0.87, Estim Creat Clear Calc 79.98, Est GFR (MDRD) Af Amer 110, Est GFR (MDRD) Non-Af 91, BUN/Creatinine Ratio 11.5, Glucose 124 H, Calcium 8.7 12/06/23 10:47: APTT 47.2 H Charges/Coding Visit Charges Inpatient E&M: 97966 Subs Hosp L2
[2023-12-06] MEDS: Potassium Chloride Oral Tablet 20 MEQ 40 MEQ PO (14:45)
[2023-12-06] MEDS: Acetaminophen 325 MG Tablet 650 MG PO (14:45)
[2023-12-06 15:00] VITALS: BP 146/84; PULSE 94; RESP 18; TEMP 36.3; O2SAT 98
[2023-12-06 17:40] VITALS: BP 162/69; PULSE 97; RESP 18; TEMP 36.8; O2SAT 98
[2023-12-06] MEDS: amLODIPine 5 MG Tablet PO (17:41)
[2023-12-06] MEDS: Lisinopril 20 MG Tablet PO (17:42)
[2023-12-06 20:30] VITALS: BP 154/85; PULSE 100; RESP 16; TEMP 36.7; O2SAT 100
[2023-12-07] VITALS (11 sets, daily range): BP systolic 101–145; BP diastolic 60–79; PULSE 80–99; RESP 16–18; TEMP 36.3–37.4; O2SAT 95–98; BMI 30.2
--- NOTE | 2023-12-07 | IMM_PTH ---
PATIENT: JACOB FISCHER LOC: [facility] U#:[id number] AGE/SX: 73/M ROOM: [facility] RE12/04/[address]: Dr. Carmencita Reaves MD : [id number] BED: 1 DIS: 12/08/2023 SPEC #: [id number] RECD: 12/09/23 11:06 STATUS: CATHIE REQ #: [id number] MICHELA: 12/07/23 00:[address]: Zack Oates DEPT: IMMUNOHISTOCHEMISTRY RECD BY: Richard Leos ENTERED: 12/09/23 11:10 SP TYPE: IMMUNO OTHR DR: MD Dr. Erendira Christianson MD Dr. Prakash Chand, MD Dr. Paige Pierce, MD Tissues: A - HERNIA B - Omentum, NOS Procedures: RCC (add) MSH2 (add) MLH-1 (add) MSH6 (add) Anti-PMS2 (add) NAPSIN A (add) CEA (add) CK20 (add) CK7 (add) CK8 (add) HER2 CHANELL (add) KI-67 (add) P53 (add) TTF1 (add) 34BE12 (add) Pankeratin (initial) Pankeratin (add) CDX2 (add) PSAP (add) CK7 (initial) PHYSICIAN & INSTITUTION [place] [id number] SPECIMEN INFORMATION: Tissue Source: A- Umbilical hernia contents, B- Omental tissue Clinical Info: Carcinomatosis, umbilical hernia Specimen Number: [id number] A,B CPT code: 72229n4,73459n11 METHODOLOGY: Deparaffinized sections of prefer/formalin-fixed tissue or PAP/DQ stained slides are incubated with monoclonal/polyclonal antibodies/oligonucleotide probes. Localization is made via biotin free immunoperoxidase method. Appropriate controls are performed and reacted as expected. Results on target cell population are indicated in the following table: RESULTS: ANTIBODY / CLONE RESULT Block A1 AE1-3 (AE1/AE3/PCK26) positive CK7 (OV-TL12/30) negative CK8 (49tpipW62) positive CK20 (KS20.8) positive CDX2 ([id number]) positive 34BE12 (34BE12) positive, dim TTF-1 (8G7G3/1) negative Napsin A (Rabbit Polyclonal) negative RCC (PN-15) negative PSAP (PASE/4LJ) negative CEA (11-7/TF-3HB-1) positive Her-2neu (CB11) negative MLH-1 (M1) positive MSH2 (25D12) positive MSH6 (44) positive PMS2 ([id number]) positive Ki-67 (30-9) positive, 50% P53 (DO-7) positive, missense pattern Block B 1 AE1-3 (AE1/AE3/PCK26) positive CK7 (OV-TL12/30) negative CK8 (22gzopM04) positive CK20 (KS20.8) positive CDX2 ([id number]) positive 34BE12 (34BE12) positive, focal, dim TTF-1 (8G7G3/1) negative Napsin A (Rabbit Polyclonal) negative RCC (PN-15) negative PSAP (PASE/4LJ) negative CEA (11-7/TF-3HB-1) positive Her-2neu (CB11) negative MLH-1 (M1) positive MSH2 (25D12) positive MSH6 (44) positive PMS2 (THY4103) positive Ki-67 (30-9) positive 50% P53 (DO-7) positive, missense pattern Testing for Her2 by IHC if equivocal, recommend testing for Her2 by FISH(remove/not needed) These tests were developed and their performance characteristics determined by [facility]. They may not have been cleared or approved by the U.S. Food and Drug Administration. The FDA has determined that such clearance or approval is not necessary. The above immunohistochemical/dualISH markers are ordered and reviewed by the Pathologist. INTERPRETATION: A. Umbilical hernia contents, herniorrhaphy: Metastatic adenocarcinoma. Result of Microsatellite Instability Study: Negative (no loss of mismatch protein; no microsatellite instability detected). B. Omentum, biopsy: Metastatic adenocarcinoma. Result of Microsatellite Instability Study: Negative (no loss of mismatch protein; no microsatellite instability detected). A,B: COMMENT: The IHC profile favors a gastrointestinal primary. AM/mr 12/10/2023
--- NOTE | 2023-12-07 | HERN_PTH ---
PATIENT: JACOB FISCHER LOC: [facility] U#:[id number] AGE/SX: 73/M ROOM: [facility] RE12/04/[address]: Dr. Carmencita Reaves MD : 1950 BED: 1 DIS: 12/08/2023 SPEC #: [id number] RECD: 12/07/23 14:28 STATUS: CATHIE REQ #: [id number] MICHELA: 12/07/23 00:[address]: Zack Oates DEPT: SURGICAL PATHOLOGY RECD BY: Saud Reyes ENTERED: 12/08/23 10:18 SP TYPE: Hernia OTHR DR: MD Dr. Enedina Valerio MD Dr. Autumn L White, MD Dr. Prakash Chand, MD Dr. Paige Pierce, MD Tissues: A - HERNIA B - Omentum, NOS Procedures: Surgery Specimen Level II Surgery Specimen Level IV Comments: @ Ordering doctor for SUII edited from to @ by SUJATA at 12/08/23 [facility]4 @ Ordering doctor for SUIV edited from to @ by SUJATA at 12/08/23 [facility]4 @ Submitting doctor edited from to @ by SUJATA at 12/08/23 1354 HEADER OPERATION: Biopsy of omentum, umbilical hernia repair PRE-OP DIAGNOSIS: Carcinomatosis, umbilical hernia TISSUE SUBMITTED: A- Umbilical hernia contents, B- Omental tissue MICROSCOPIC DIAGNOSIS A. Umbilical hernia contents, excision: Metastatic mucinous adenocarcinoma. See comment. B. Omentum, biopsy: Metastatic mucinous adenocarcinoma. See comment. MAHESH/ 12/09/2023 COMMENT A,B. Immunohistochemistry ([id number]) supports the above diagnosis and favors a gastrointestinal primary. Case has been reviewed in consultation with Dr. Adler who concurs with the above diagnosis. IDC:SJ MICROSCOPIC DESCRIPTION Slides are reviewed. GROSS DESCRIPTION A. Received in fixative is one container labeled with the patient's name and designated Umbilical hernia contents. The specimen consists of a piece of donovan-yellow soft tissue measuring 3.0 x 2.5 x 1.5cm. Sections reveal a donovan solid nodule measuring 1.0 x 1.0 x 0.4cm. Rest of the specimen reveal donovan-yellow adipose cut surfaces mixed with donovan-white fibrous areas. Information Systems Security Manager sections are submitted in two cassettes. Cassette 1 contains the solid nodule. B. Received in fixative is one container labeled with the patient's name and designated Omental tissue. The specimen consists of a piece of yellow adipose tissue measuring 5.0 x 2.0 x 1.0cm. Sections do not reveal any obvious mass lesions. Information Systems Security Manager sections are submitted in three cassettes. SJ 12/08/2023 TC:0 CPT:91330,13290
[2023-12-07 00:12] LABS: Partial Thromboplast Time 71.2 Seconds (24.1-36.2)
[2023-12-07] MEDS: Acetaminophen 325 MG Tablet 650 MG PO ×2 (01:55→18:54)
[2023-12-07] MEDS: HEPARIN/D5w 25,000 UNITS 25,000 UNITS/250 ML IV.SOLN. 15 UNITS CONT INF (01:59)
[2023-12-07 07:02] LABS: Partial Thromboplast Time 43.5 Seconds (24.1-36.2)
[2023-12-07 07:05] LABS: Absolute Lymphocyte Count 0.87 X10^3/uL (0.83-4.51); Absolute Neutrophil Count 4.9 X10^3/uL (2.0-7.7); Basophil# 0.02 X10^3/uL; Basophil% 0.3 % (0-1); Eosinophil# 0.05 X10^3/uL; Eosinophils% 0.8 % (0-5); Hematocrit 37.6 % (40-54); Hemoglobin 11.7 g/dL (13.0-16.5); Lymphocyte # 0.87 X10^3/ul (0.83-4.51); Lymphocyte % 13.4 % (19-41); Mean Corp Hgb Conc 31.1 g/dL (32-36); Mean Corpuscular Hgb 28.6 pg (27.0-32.0); Mean Corpuscular Volume 91.9 fL (80-94); Mean Platelet Vol. 10.3 fl (6.2-12.0); Monocyte# 0.57 X10^3/uL; Monocyte% 8.8 % (0-10); NRBC Flagged by Analyzer 0 % (0-5); Neutrophil # 4.88 X10^3/uL (2.7-7.7); Neutrophil % 75.5 % (47-70); Platelet Count 330 K/mm3 (150-450); RBC Distribution Width CV 12.6 % (11.6-14.6); RBC Distribution Width SD 42.3 fl (35.1-43.9); Red Blood Count 4.09 M/mm3 (4.6-6.2); White Blood Count 6.5 K/mm3 (4.4-11.0)
[2023-12-07 07:22] LABS: Anion Gap 11 (5-15); BUN 10 mg/dL (7-18); BUN/Creat Ratio 9.8 RATIO (10-20); Calcium,Total 9.4 mg/dL (8.5-10.1); Chloride 106 mmol/L (98-107); Creatinine, Serum 1.02 mg/dL (0.70-1.30); EST Glomerular Filtration Rate 76 mL/min (>60); Est Glom Filt Rate - Afr Amer 92 mL/min (>60); Estimated Creatinine Clearance 68.22 ml/min; Glucose 122 mg/dL (74-106); Potassium 4.3 mmol/L (3.5-5.1); Sodium Level 141 mmol/L (136-145)
--- NOTE | 2023-12-07 08:54 | PN.SURG_ITS ---
Subjective Subjective Patient has no new complaints Objective Data Objective Data Vital Signs: Vital Signs Temp Pulse Resp BP Pulse Ox O2 Del Method 98.2 F 87 16 140/77 H 96 Room Air 12/07/23 03:00 12/07/23 03:00 12/07/23 03:00 12/07/23 03:00 12/07/23 03:00 12/07/23 08:21 Oxygen Delivery Method Room Air Weight: 198 lb 10.184 oz Body Mass Index (BMI) 30.2 Intake & Output: Intake and Output for Last 24 Hours 12/05/23 12/06/23 12/07/23 23:59 23:59 23:59 Intake Total 2558.12 / 2558.12 771.12 / 771.12 292.17 / 292.17 Balance 2558.12 / 2558.12 771.12 / 771.12 292.17 / 292.17 Lab / Micro Data 12/07/23 06:05 12/07/23 06:05 Labs: Laboratory Results - last 24 hr 12/06/23 10:47: APTT 47.2 H 12/06/23 17:35: APTT 59.0 H 12/06/23 23:30: APTT 71.2 H 12/07/23 06:05: WBC 6.5, RBC 4.09 L, Hgb 11.7 L, Hct 37.6 L, MCV 91.9, MCH 28.6, MCHC 31.1 L, RDW Std Deviation 42.3, RDW Coeff of [place] 12.6, Plt Count 330, MPV 10.3, Immature Gran % (Auto) 1.200 H, Neut % (Auto) 75.5 H, Lymph % (Auto) 13.4 L, [place] % (Auto) 8.8, Eos % (Auto) 0.8, Baso % (Auto) 0.3, Absolute Neuts (auto) 4.9, Absolute Lymphs (auto) 0.87, Nucleated RBC % 0, APTT 43.5 H, Sodium 141, Potassium 4.3, Chloride 106, Carbon Dioxide 24.0, Anion Gap 11, BUN 10, Creatinine 1.02, Estim Creat Clear Calc 68.22, Est GFR (MDRD) Af Amer 92, Est GFR (MDRD) Non-Af 76, BUN/Creatinine Ratio 9.8 L, Glucose 122 H, Calcium 9.4 Physical Exam Const oriented x3 and no apparent distress Resp normal respiratory effort GI soft to palpation and non-tender Assessment & Plan Assessment/Plan (1) Umbilical hernia: QUALIFIERS: Obstruction and gangrene presence: without obstruction or gangrene Qualified Code(s): K42.9 - Umbilical hernia without obstruction or gangrene (2) Carcinomatosis: PLAN: Plan The patient has concern for carcinomatosis and I will biopsy this today and do a repair of his umbilical hernia at the same time. I will try to perform laparoscopic evaluation as well and drainage of his ascites but unsure if that will be able to be done. His heparin drip is on hold. He is NPO. Zack Oates MD Pager: [facility] [address] [place] [address], [address] [place] [address] Office:
[2023-12-07] MEDS: Lactated Ringers 1,000 ML 15 ML IV (12:11)
--- NOTE | 2023-12-07 13:07 | PCM.PRE.AN2 ---
ASA Classification* ASA Classification ASA Classification: 3 and E Assessment & Plan Anesthesia* Anesthesia Assessment Anesthesia Assessment: Discussed sedation and/or anesthesia options, risks, benefits, and alternatives with patient/parents/legal guardian/POA. Questions invited. The patient/parents/legal guardian/POA seems to understand and agrees to proceed with anesthesia plan. Reviewed the physical assessment, medical history, allergy history and patient home medications list prior to surgery/procedure/anesthetic and documented any changes. Performed airway and anesthesia risk assessments. Anesthesia Type Anesthesia Type: General (see written pre anesthesia record for full assessment) Anesthesia Focused Assessment* Temperature: 97.9 F Pulse Rate: 89 Blood Pressure: 145/79 Respiratory Rate: 18 Pulse Ox: 97 Airway Assessment Mouth opens: >3 cm Mallampati Score: III Focused Labs Anesthesia Preop lab: CBC WBC 6.5 K/mm3 (4.4-11.0) 12/07/23 06:05 RBC 4.09 M/mm3 (4.6-6.2) L 12/07/23 06:05 Hgb 11.7 g/dL (13.0-16.5) L 12/07/23 06:05 Hct 37.6 % (40-54) L 12/07/23 06:05 Plt Count 330 K/mm3 (150-450) 12/07/23 06:05 CHEMISTRY Potassium 4.3 mmol/L (3.5-5.1) 12/07/23 06:05 Sodium 141 mmol/L (136-145) 12/07/23 06:05 Magnesium 2.3 mg/dL (1.6-2.6) 12/04/23 19:09 BUN 10 mg/dL (7-18) 12/07/23 06:05 Creatinine 1.02 mg/dL (0.70-1.30) 12/07/23 06:05 Glucose 122 mg/dL (74-106) H 12/07/23 06:05 TSH 0.99 uIU/mL (0.358-3.74) 08/02/14 14:42 COAG PT 15.3 SECONDS (11.7-14.9) H 12/04/23 19:09 Pre-Assessment Diagnosis/Proposed Procedure Planned Operative Procedure(s): hernia repair/ exp lap Anesthesia History 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 When Was Last Pacemaker Check QUESTION #4 FULL TEXT: You/Your Family Experience fever (hyperthermia) with Anesthesia Last Oral Intake Last Oral intake: Last Oral Intake NPO since 00:00 12/07/23 03:00 Meds taken in AM with sips of Yes 12/07/23 03:00 water? Meds patient instructed to Tylenol 12/07/23 03:00 take am of surgery PONV PONV - driver utility worker: PONV - driver utility worker Female HX of Motion Sickness HX of N/V After Surgery Non-Smoker Duration of Surgery greater than 60 minutes Number of Risk Factors PONV Score Height & Weight Height & Weight: Anesthesia: Height & Weight Height 5 ft 8 in 12/07/23 10:14 Weight: 90.1 kg 12/07/23 10:14 Body Mass Index (BMI) 30.2 12/07/23 03:00 Respiratory Assessment Respiratory Assessment - driver utility worker: Respiratory Tract Infection Hx - driver utility worker Hx Respiratory Tract Infection No 12/07/23 02:30 STOP Sleep Apnea STOP Sleep Apnea - driver utility worker: STOP Sleep Apnea - driver utility worker Hx Hypertension Yes 12/04/23 21:46 Hx Sleep Apnea No 12/04/23 21:46 CPAP BIPAP Do you snore loudly (louder Yes 12/04/23 21:46 than talking or can be heard Do you often feel tired/ No 12/04/23 21:46 fatigued/ sleepy during daytime? Has anyone observed you stop No 12/04/23 21:46 breathing during sleep? STOP Results Positive 12/04/23 21:46 QUESTION #5 FULL TEXT : Do you snore loudly (louder than talking or can be heard through closed doors)? Tobacco Use History Tobacco Use History - driver utility worker: Tobacco Use History - driver utility worker Tobacco Use Smoking Status Former smoker 12/04/23 22:00 Hx Tobacco Use No 12/04/23 21:46 Years Smoking Packs Smoked per Day Smoking Cessation Date was No - quit smoking greater 12/04/23 21:46 within the last 15 years than 15 years ago Hx Smoking Cessation Date 03/30/78 12/04/23 21:46 Hx Smoking Cessation Counseling Hematologic Medial History Hematologic Hx - driver utility worker: Hematologic Medical Hx - manager documentation Hx of Blood Transfusion No 12/04/23 21:46 Hx of Transfusion in last 3 No 12/04/23 21:46 Months Date of Last Transfusion (if within last 3 months) Ever experience any problems No 12/04/23 21:46 with transfusion(s)? Specify any problems Hx of Preganancy in last 3 N/A 12/04/23 21:46 Months Nurse Filling Out Transfusion JSNOW 12/04/23 21:46 & Questions: Date: 12/04/23 12/04/23 21:46 Time: 21:54 12/04/23 21:46 Patient unable to answer at this time (ie. confused, unrespo /Reproduction History /Reproductive History - driver utility worker: /Reproductive Hx- driver utility worker Hx Now No 12/07/23 02:30 Gestational Age (in weeks): EDC: Hx Hx Para Hx Section SAB No 12/07/23 02:30 Active Medications Active Medications: Current Medications Generic Name Dose Route Start Last Admin Trade Name Freq PRN Reason Stop Dose Admin Acetaminophen 650 mg 12/04/23 21:46 12/07/23 01:55 Acetaminophen 325 Mg Tablet PO 650 mg Q4H PRN PRN Administration Fever, pain 1-10/10 Al Hydrox/Mg Hydrox/Simethicone 30 ml 12/04/23 21:46 Mag /Aluminum/Simeth Wch Udc 30 Ml Oral.Susp PO Q6H PRN PRN Gastric Burning Albuterol Sulfate 2.5 mg 12/04/23 21:46 Albuterol 2.5 Mg/3 Ml Vial.Neb. INHALATION Q2H PRN PRN Dyspnea, wheezing Amlodipine Besylate 5 mg 12/05/23 18:00 12/06/23 17:41 Amlodipine 5 Mg Tablet PO 5 mg DAILY@1800 EZEQUIEL Administration Protocol Folic Acid 1 mg 12/05/23 08:00 12/06/23 09:23 Folic Acid 1 Mg Tablet PO 1 mg BREAKFAST EZEQUIEL Administration Guaifenesin 20 ml 12/04/23 21:46 Guaifenesin 10 Ml Udc (200mg/10ml) PO Q4H PRN PRN COUGH Heparin Sodium (Porcine) 0 unit 12/04/23 21:50 12/05/23 09:04 Heparin Injection (Vial) 5,000 Unit/Ml Vial IV 1,000 unit UD PRN Administration dose adjustment Protocol Hydralazine HCl 10 mg 12/04/23 21:46 Hydralazine 20 Mg/Ml Vial IV Q4H PRN PRN SBP > 160 Protocol Heparin Sodium/Dextrose 25,000 units in 250 mls @ 10 mls/hr 12/04/23 21:46 12/07/23 06:00 CONT INF 0 units/hr .Q25H EZEQUIEL 0 mls/hr Titration Protocol As Directed Lactated Ringer's 1,000 mls @ 15 mls/hr 12/07/23 12:00 12/07/23 12:11 IV 15 mls/hr .Q48H EZEQUIEL Administration Lisinopril 20 mg 12/05/23 18:00 12/06/23 17:42 Lisinopril 20 Mg Tablet PO 20 mg DAILY@1800 EZEQUIEL Administration Protocol Lorazepam 2 mg 12/04/23 21:59 Lorazepam 2 Mg/Ml Syringe IV UD PRN CIWA score >/=15. Protocol Lorazepam 2 mg 12/04/23 21:59 Lorazepam 2 Mg/Ml Syringe IV Q2H PRN PRN CIWA score > 8 but <15 Protocol Lorazepam 2 mg 12/04/23 21:59 Lorazepam 1 Mg Tablet PO UD PRN CIWA score >/=15. Protocol Lorazepam 2 mg 12/04/23 21:59 Lorazepam 1 Mg Tablet PO Q2H PRN PRN CIWA score > 8 but <15 Protocol Melatonin 3 mg 12/04/23 21:46 Melatonin 3 Mg Tablet PO QHS PRN PRN INSOMNIA Multivitamins/Minerals 1 tablet 12/05/23 08:00 12/06/23 09:23 Multivitamins,Ther W-Minerals Tablet PO 1 tablet BREAKFAST EZEQUIEL Administration Ondansetron HCl 4 mg 12/04/23 21:46 Ondansetron 4 Mg/2 Ml Vial IV Q8H PRN PRN NAUSEA/VOMITING Oxycodone HCl 5 mg 12/04/23 21:46 Oxycodone 5 Mg Tablet PO Q4H PRN PRN Pain Score 4-10 Potassium Chloride 40 meq 12/06/23 14:00 12/06/23 14:45 Potassium Chloride Oral Tablet 20 Meq PO 12/08/23 14:01 40 meq DAILYCM EZEQUIEL Administration Prochlorperazine Edisylate 5 mg 12/04/23 21:46 Prochlorperazine 10 Mg/2 Ml Vial IV Q4H PRN PRN Breakthrough Nausea/Vomiting Senna/Docusate Sodium 2 tablet 12/04/23 21:46 Senna/Docusate Sodium 1 Tablet PO BID PRN PRN Constipation Sodium Chloride 10 - 40 ml 12/04/23 21:57 0.9% Saline Lock 10 Ml Syringe IV UD PRN SALINE FLUSH Thiamine HCl 100 mg 12/05/23 08:00 12/06/23 09:23 Thiamine Hydrochloride 100 Mg Tablet PO 100 mg BREAKFAST EZEQUIEL Administration PFSH Medical History ETOH abuse Abdominal carcinomatosis History of prostate cancer Obesity HLD (hyperlipidemia) Prostate CA HTN (hypertension) Ascites Home Medications ?Medication ?Instructions ?Recorded ?Last Taken ?Type amlodipine 5 mg tablet 5 mg PO QDAY 11/26/23 Unknown History hydrocortisone 2.5 % topical cream 1 applic topical Q6H PRN 11/26/23 Unknown History with perineal applicator hemorrhoids (Procto-Med HC) lisinopril 20 mg tablet 20 mg PO QDAY 11/26/23 Unknown History multivitamin 1 tab PO DAILY 11/26/23 Unknown History Allergy/AdvReac Type Severity Reaction Status Date / Time No Known Allergies Allergy Verified 12/04/23 17:37 Family History Mother Cancer Father Prostate cancer Surgical History No history of previous surgery Social History household members: spouse Smoking Status: Former smoker how long ago did patient quit smoking: Quit 1979, smoked 1 ppd since teen until quit. alcohol intake: current alcohol intake frequency: 3 or more drinks per day details: Reports 4 beers or 2-24 ounce beers daily. substance use type: does not use Review of Systems (Anesthesia) ROS Narrative System reviewed and no additional complaints, except as documented.
[2023-12-07] MEDS: Cefotetan 2 GM in 0.9% Normal Saline (100mL MB+) 100 ML IV (13:37)
[2023-12-07] MEDS: Bupiv/Epi 0.25% 30 ML Vial (13:52)
[2023-12-07 14:31] LABS: Cytology, Body Fluid / CSF SEE PATHOLOGY REPORT
--- NOTE | 2023-12-07 14:31 | PCM.POST.ANE ---
Anesthesia: Postop Eval I Current Vital Signs Temperature: 98.2 F Pulse Rate: 96 Blood Pressure: 108/67 Respiratory Rate: 16 Pulse Ox: 97 Oxygen Delivery Method: Room Air Assessment Airway patent: Yes Spontaneous unlabored respirations: Yes Mental status: Awake and Calm nausea: No Vomiting: No Anesthesia Complication: No Fluid Hydration Crystalloid volume administer (ml): 900 Total IV fluid infused: 900 Progress Note Anesthesia document: Postop Eval 1 completed: Yes
--- NOTE | 2023-12-07 14:32 | OP.PCM_ITS ---
Report of Operation Date of Procedure: 12/07/23 Pre-Operative Diagnosis: Possible carcinomatosis with malignant ascites and umb ilical hernia Post-Operative Diagnosis: Same Surgery/Procedure Performed:: 1. Umbilical hernia repair 2. Omental biopsy Type of Anesthesia: General/Regional Specimen's removed: 1. Ascites 2. Hernia sac 3. Omental tissue Estimated Blood Loss (mL): 5 Description of Procedure: Patient was brought back to the operating room and general anesthesia was induced. Abdomen was prepped and draped in usual sterile fashion. A curvilinear incision was made superior to the umbilicus. The skin was removed from the umbilical stalk. 6 the hernia sac was amputated and sent for pathology. There was opening and the ascites started draining and I was able to place a suction into the abdomen. There were no adhesions to the anterior abdominal wall. The ascites was suctioned and about 2500 cc of serous ascites was suctioned. Some of this was sent for cytology. Next a small segment of omentum was brought through the incision and amputated using electrocautery. There was good hemostasis. It was sent for pathology. Next the hernia was closed with interrupted 0 Nurolon sutures closing the defect and then the skin was injected with local anesthetic and closed with interrupted 3-0 Vicryl sutures. Dermabond was applied and dressings were applied. Grafts/Implants Used: No mesh used Admit VTE Documentation VTE Mechan Device Prophylaxis: SCD's
--- NOTE | 2023-12-07 15:10 | PCM.POSTANE2 ---
Anesthesia Postop Eval I Sum Postop Eval Completion status Anesthesia document: Postop Eval 1 completed: Yes Anesthesia Postop Eval I Summary Anesthesia Postop Eval I Summary: Anesthesia Postop Eval I: Assessment Summary Airway patent Yes 12/07/23 14:31 [email or web address] Spontaneous unlabored Yes 12/07/23 14:31 [email or web address] respirations Mental status Awake,Calm 12/07/23 14:31 [email or web address] nausea No 12/07/23 14:31 [email or web address] Vomiting No 12/07/23 14:31 [email or web address] Anesthesia Postop Eval I: Fluid Summary Crystalloid volume administer 900 12/07/23 14:31 [email or web address] (ml) Colloids volume administered ( ml) Blood Product volume administered (ml) Total IV fluid infused 900 12/07/23 14:31 [email or web address] Anesthesia Postop Eval I: Summary Notes Anesthesia Complication No 12/07/23 14:31 [email or web address] Anesthesia Complication Comment: Post-operative progress note Anesthesia: Postop Eval II Evaluation Mental status: Awake and Calm Pain Level: 1 nausea: No Vomiting: No Complications Anesthesia Complication: No
--- NOTE | 2023-12-07 16:10 | PCM.PN.HOSP ---
Reason for Visit Reason for Visit: Diagnoses Disseminated malignant neoplasm, unspecified (12/04/23) Other pulmonary embolism without acute cor pulmonale (12/04/23) Umbilical hernia without obstruction or gangrene (12/04/23) Abnormal findings on diagnostic imaging of other abdominal regions, including retroperitoneum (12/04/23) Subjective Subjective Patient seen postop, reports minimal pain, no shortness of breath, no nausea, overall feeling fair Objective Data Objective Data Vital Signs: Vital Signs Temp Pulse Resp BP Pulse Ox O2 Del Method 97.4 F L 96 18 140/67 H 97 Room Air 12/07/23 15:45 12/07/23 15:45 12/07/23 15:45 12/07/23 15:45 12/07/23 15:45 12/07/23 16:03 Oxygen Delivery Method Room Air Weight: 90.1 kg Body Mass Index (BMI) 30.2 Intake & Output: Intake and Output for Last 24 Hours 12/05/23 12/06/23 12/07/23 23:59 23:59 23:59 Intake Total 2558.12 / 2558.12 771.12 / 771.12 392.17 / 392.17 Output Total 2800 / 2800 Balance 2558.12 / 2558.12 771.12 / 771.12 -2407.83 / -2407.83 Lab / Micro Data 12/07/23 06:05 12/07/23 06:05 Labs: Laboratory Results - last 24 hr 12/06/23 17:35: APTT 59.0 H 12/06/23 23:30: APTT 71.2 H 12/07/23 06:05: WBC 6.5, RBC 4.09 L, Hgb 11.7 L, Hct 37.6 L, MCV 91.9, MCH 28.6, MCHC 31.1 L, RDW Std Deviation 42.3, RDW Coeff of [place] 12.6, Plt Count 330, MPV 10.3, Immature Gran % (Auto) 1.200 H, Neut % (Auto) 75.5 H, Lymph % (Auto) 13.4 L, [place] % (Auto) 8.8, Eos % (Auto) 0.8, Baso % (Auto) 0.3, Absolute Neuts (auto) 4.9, Absolute Lymphs (auto) 0.87, Nucleated RBC % 0, APTT 43.5 H, Sodium 141, Potassium 4.3, Chloride 106, Carbon Dioxide 24.0, Anion Gap 11, BUN 10, Creatinine 1.02, Estim Creat Clear Calc 68.22, Est GFR (MDRD) Af Amer 92, Est GFR (MDRD) Non-Af 76, BUN/Creatinine Ratio 9.8 L, Glucose 122 H, Calcium 9.4 Physical Exam Narrative General: Alert, oriented, no apparent distress HEENT: Atraumatic, normocephalic Eyes: Anicteric, normal conjunctiva, extraocular movements grossly intact Neck: Supple Respiratory: Clear to auscultation bilaterally, normal respiratory effort Cardiovascular: Regular rate GI: Postop Extremities: No edema Musculoskeletal: Moving all extremities Neuro: No overt focal neurological deficits Skin: No rashes appreciated Psych: Cooperative Assessment & Plan Assessment/Plan (1) Acute pulmonary embolism: PLAN: Plan # Acute pulmonary embolism -Seen on outpatient CT chest/abdomen/pelvis with contrast -Resume heparin drip when okay to do so by surgery # Ascites/omental caking/hernia -Seen on outpatient imaging -Patient OR 12/06 and had drainage of ascites with omental biopsy and hernia repair with Dr. Oates -2100 cc of ascitic fluid drained -Path pending -Patient seen postop and tolerated this well # Alcohol use history -Patient admitted 12/03, was initially started on CIWA however ultimately this was discontinued -Patient on thiamine and folic acid # History of prostate cancer -Diagnosed 2017 status postchemotherapy and radiation -Reported to be in remission -Follows with Dr. Dumas on an outpatient basis #Hypertension -Continue lisinopril and amlodipine # Stage I diastolic dysfunction -Noted on preop echo 12/05/2023 -EF to 65% -Does not appear fluid overloaded -Continue to monitor clinically #DVT ppx: Resume heparin drip when okay to do so by surgery Carmencita Reaves MD Time spent in the patient's overall evaluation,decision-making process, review of diagnostic data, adjustment of management, discussion with other providers, nursing nursing and ancillary staff involved in patient's care documentation, 36 minutes Charges/Coding Visit Charges Inpatient E&M: 36388 Subs Hosp L2
[2023-12-07] MEDS: amLODIPine 5 MG Tablet PO (17:05)
[2023-12-07] MEDS: Multivitamins,Ther W-Minerals Tablet 1 TABLET PO (17:05)
[2023-12-07] MEDS: Potassium Chloride Oral Tablet 20 MEQ 40 MEQ PO (17:05)
[2023-12-07] MEDS: Folic Acid 1 MG Tablet PO (17:05)
[2023-12-07] MEDS: Lisinopril 20 MG Tablet PO (17:05)
[2023-12-07] MEDS: Thiamine Hydrochloride 100 MG Tablet PO (17:06)
[2023-12-07] MEDS: 0.9% Saline Lock 10 ML Syringe IV (20:55)
--- NOTE | 2023-12-08 | IMM_PTH ---
PATIENT: JACOB FISCHER LOC: [facility] U#:[id number] AGE/SX: 73/M ROOM: [facility] RE12/04/[address]: Dr. Carmencita Reaves MD : 1950 BED: 1 DIS: 12/08/2023 SPEC #: [id number] RECD: 12/09/23 11:04 STATUS: CATHIE REQ #: [id number] MICHELA: 12/08/23 00:[address]: Carmencita Reaves DEPT: IMMUNOHISTOCHEMISTRY RECD BY: Richard Leos ENTERED: 12/09/23 11:05 SP TYPE: IMMUNO OTHR DR: MD Dr. Enedina Valerio MD Dr. Autumn L White, MD Dr. Prakash Chand, MD Tissues: Cytologic material, NOS Procedures: CK20 (add) CK8 (add) CDX2 (add) PSAP (add) CK7 (initial) PHYSICIAN & INSTITUTION [place] [address] SPECIMEN INFORMATION: Tissue Source: Ascites fluid Clinical Info: Acute PE, ascites Specimen Number: [id number] CPT code: 47025,25647s4 METHODOLOGY: Deparaffinized sections of prefer/formalin-fixed tissue or PAP/DQ stained slides are incubated with monoclonal/polyclonal antibodies/oligonucleotide probes. Localization is made via biotin free immunoperoxidase method. Appropriate controls are performed and reacted as expected. Results on target cell population are indicated in the following table: RESULTS: ANTIBODY / CLONE RESULT CK7 (OV-TL12/30) negative CK8 (05lpioD86) positive CK20 (KS20.8) positive CDX2 (KIM7730C) positive PSAP (PASE/4LJ) negative These tests were developed and their performance characteristics determined by [facility]. They may not have been cleared or approved by the U.S. Food and Drug Administration. The FDA has determined that such clearance or approval is not necessary. The above immunohistochemical/dualISH markers are ordered and reviewed by the Pathologist. INTERPRETATION: Ascites fluid for cytology (cytospin and cellblock): Metastatic adenocarcinoma. COMMENT: A gastrointestinal primary is favored. MAHESH/ 12/10/2023
--- NOTE | 2023-12-08 | FLU_PTH ---
PATIENT: JACOB FISCHER LOC: [facility] U#:[id number] AGE/SX: 73/M ROOM: [facility] RE12/04/[address]: Dr. Carmencita Reaves MD : 1950 BED: 1 DIS: 12/08/2023 SPEC #: [id number] RECD: 12/08/23 10:09 STATUS: CATHIE REQ #: [id number] MICHELA: 12/08/23 00:[address]: Carmencita Reaves DEPT: CYTOLOGY RECD BY: Saud Reyes ENTERED: 12/08/23 10:10 SP TYPE: Fluid OTHR DR: MD Dr. Enedina Valerio MD Dr. Autumn L White, MD Dr. Prakash Chand, MD Tissues: Cytologic material, NOS Procedures: Special Stain Group II Surgery Specimen Level IV Cytospin Fluid HEADER OPERATION: Biopsy of omentum, umbilical hernia repair PRE-OP DIAGNOSIS: Acute PE, ascites TISSUE SUBMITTED: Ascites fluid for cytology DIAGNOSIS CYTOLOGY Ascites fluid for cytology (cytospins and cellblock): Positive for malignant cells, adenocarcinoma. See comment. Bryan 12/09/2023 COMMENT Immunohistochemistry ([id number]) supports the above diagnosis and favors a gastrointestinal primary. Please refer to corresponding surgical case [id number]. Case has been reviewed in consultation with Dr. Adler who concurs with the above diagnosis. IDC:SJ CYTOLOGY STUDY Slides are reviewed. CYTOLOGY GROSS Received is 20 ml of orange-cloudy fluid labeled with the patient's name and and designated per the requisition as Ascites fluid. Submitted for cytology preparation including cell block. Mr 12/08/2023 TC:0 CPT: 90030,11321,07537 ADDENDUM ADDENDUM ADDENDUM ADDENDUM ADDENDUM ADDENDUM 12/25/2023 13:21 ADDENDUM 12/25/2023 13:21 ADDENDUM 12/25/2023 13:21 ADDENDUM 12/25/2023 13:21 ADDENDUM 12/25/2023 13:21 PD-L1 IMMUNOHISTOCHEMISTRY ([facility]) ANALYSIS TUMOR PROPORTION SCORE (TBS): (%)- 0 Complete report is viewable in the patient's EMR.
[2023-12-08 02:15] VITALS: BMI 30.2
[2023-12-08 02:17] VITALS: BP 132/77; PULSE 83; RESP 16; TEMP 36.8; O2SAT 98
[2023-12-08 03:16] LABS: Absolute Lymphocyte Count 0.81 X10^3/uL (0.83-4.51); Absolute Neutrophil Count 5.3 X10^3/uL (2.0-7.7); Basophil# 0.03 X10^3/uL; Basophil% 0.4 % (0-1); Eosinophil# 0.05 X10^3/uL; Eosinophils% 0.7 % (0-5); Hematocrit 35.8 % (40-54); Hemoglobin 11.2 g/dL (13.0-16.5); Lymphocyte # 0.81 X10^3/ul (0.83-4.51); Lymphocyte % 11.7 % (19-41); Mean Corp Hgb Conc 31.3 g/dL (32-36); Mean Corpuscular Hgb 28.4 pg (27.0-32.0); Mean Corpuscular Volume 90.9 fL (80-94); Mean Platelet Vol. 9.8 fl (6.2-12.0); Monocyte# 0.59 X10^3/uL; Monocyte% 8.6 % (0-10); NRBC Flagged by Analyzer 0 % (0-5); Neutrophil # 5.34 X10^3/uL (2.7-7.7); Neutrophil % 77.4 % (47-70); Platelet Count 313 K/mm3 (150-450); RBC Distribution Width CV 12.7 % (11.6-14.6); RBC Distribution Width SD 42.1 fl (35.1-43.9); Red Blood Count 3.94 M/mm3 (4.6-6.2); White Blood Count 6.9 K/mm3 (4.4-11.0)
[2023-12-08 03:34] LABS: Partial Thromboplast Time 42.9 Seconds (24.1-36.2)
[2023-12-08 03:45] LABS: ALB/GLOB Ratio 0.8 RATIO (0.9-2.4); AST(SGOT) 13 U/L (15-37); Alanine Aminotransfer ALT/SGPT 17 U/L (16-61); Albumin, Serum 2.4 g/dL (3.2-5.0); Alkaline Phosphatase 48 U/L (45-117); Anion Gap 5 (5-15); BUN 8 mg/dL (7-18); BUN/Creat Ratio 7.1 RATIO (10-20); Calcium,Total 8.7 mg/dL (8.5-10.1); Chloride 106 mmol/L (98-107); Creatinine, Serum 1.12 mg/dL (0.70-1.30); EST Glomerular Filtration Rate 68 mL/min (>60); Est Glom Filt Rate - Afr Amer 82 mL/min (>60); Estimated Creatinine Clearance 62.13 ml/min; Globulin 3.1 g/dL (2.2-4.2); Glucose 122 mg/dL (74-106); Potassium 4.5 mmol/L (3.5-5.1); Protein, Total 5.5 g/dL (6.4-8.2); Sodium Level 137 mmol/L (136-145)
[2023-12-08 04:12] VITALS: BMI 31.1
[2023-12-08 06:07] VITALS: BMI 30.2
[2023-12-08 06:12] VITALS: BP 124/70; PULSE 86; RESP 18; TEMP 36.7; O2SAT 97
--- NOTE | 2023-12-08 07:35 | PCM.PN.SRG ---
Subjective Subjective Patient evaluated in conjunction with Dr. Oates resting comfortably in the chair. He denies abdominal pain. He denies nausea, vomiting. Objective Data Objective Data Vital Signs: Vital Signs Temp Pulse Resp BP Pulse Ox O2 Del Method 98.1 F 86 18 124/70 H 97 Room Air 12/08/23 06:12 12/08/23 06:12 12/08/23 06:12 12/08/23 06:12 12/08/23 06:12 12/08/23 06:12 Oxygen Delivery Method Room Air Weight: 204 lb 12.951 oz Body Mass Index (BMI) 31.1 Intake & Output: Intake and Output for Last 24 Hours 12/06/23 12/07/23 12/08/23 23:59 23:59 23:59 Intake Total 771.12 / 771.12 1024.17 / 1024.17 110 / 110 Output Total 2800 / 2800 Balance 771.12 / 771.12 -1775.83 / -1775.83 110 / 110 Lab / Micro Data 12/08/23 02:52 12/08/23 02:52 Labs: Laboratory Results - last 24 hr 12/08/23 02:52: WBC 6.9, RBC 3.94 L, Hgb 11.2 L, Hct 35.8 L, MCV 90.9, MCH 28.4, MCHC 31.3 L, RDW Std Deviation 42.1, RDW Coeff of [place] 12.7, Plt Count 313, MPV 9.8, Immature Gran % (Auto) 1.200 H, Neut % (Auto) 77.4 H, Lymph % (Auto) 11.7 L, [place] % (Auto) 8.6, Eos % (Auto) 0.7, Baso % (Auto) 0.4, Absolute Neuts (auto) 5.3, Absolute Lymphs (auto) 0.81 L, Nucleated RBC % 0, APTT 42.9 H, Sodium 137, Potassium 4.5, Chloride 106, Carbon Dioxide 26.0, Anion Gap 5, BUN 8, Creatinine 1.12, Estim Creat Clear Calc 62.13, Est GFR (MDRD) Af Amer 82, Est GFR (MDRD) Non-Af 68, BUN/Creatinine Ratio 7.1 L, Glucose 122 H, Calcium 8.7, Total Bilirubin 0.30, AST 13 L, ALT 17, Alkaline Phosphatase 48, Total Protein 5.5 L, Albumin 2.4 L, Globulin 3.1, Albumin/Globulin Ratio 0.8 L Physical Exam GI GI Narrative: Abdomen- soft, minimal tenderness at the incision site. Dressing is dry. Assessment & Plan Assessment/Plan (1) Umbilical hernia: QUALIFIERS: Obstruction and gangrene presence: without obstruction or gangrene Qualified Code(s): K42.9 - Umbilical hernia without obstruction or gangrene (2) Carcinomatosis: PLAN: Plan I am following this patient in conjunction with Dr. Oates. He has independently evaluated this patient. POD #1 umbilical hernia repair without mesh and omental biopsy. Additional removal of 2500 cc of serous ascites was sent for cytology Patient recovering well He was placed back on his Heparin Patient may restart Eliquis as well today Patient to follow-up with Dr. Oates in 1 week Ready for discharge from a surgical standpoint Charges/Coding Visit Charges Inpatient E&M: 17934 Subs Hosp L1 (No charge; post-op)
[2023-12-08 10:01] VITALS: BMI 30.2
[2023-12-08 10:24] LABS: Partial Thromboplast Time 37.4 Seconds (24.1-36.2)
[2023-12-08] MEDS: Senna/Docusate Sodium 1 Tablet 2 TABLET PO (11:04)
[2023-12-08 11:10] VITALS: BP 127/78; PULSE 93; RESP 16; TEMP 36.8; O2SAT 98
--- NOTE | 2023-12-08 12:31 | PCM.DC ---
Discharge Instructions Diet Discharge Diet: Light diet - advance as tolerated Activity Discharge Activity: - (See attached) Follow Up Care Test Results: Test results from this visit will be discussed in further detail at your follow-up appointment, if applicable. Discharge Plan Admission Admit Date/Time: 12/04/23 20:46 Primary Reason for Your Visit: Hernia, Omental biopsy Attending Provider: Carmencita Reaves Primary Care Provider: Enedina Chaudhary Consulting Providers: Zack Oates; Erendira Hamilton; Campbell Mcdonnell Instructions Patient Instructions: Embolism Pulmonary Dc Additional Instructions / Restrictions: DISCHARGE INSTRUCTIONS PLEASE READ *Please take this with you to your next doctors appointment* -You will be discharged on Eliquis, you will take 10 mg twice daily for 7 days followed by 5 mg twice daily thereafter -Please follow-up with Dr. Oates in 1 week upon discharge. Please call their office to schedule hospital follow-up appointment upon discharge. -If you have any nausea, vomiting, increased abdominal pain, other concerns please contact the surgery office or your primary care physician -Please call your primary care provider's office upon discharge to schedule a hospital follow up within 1 week. -For any concerning signs or symptoms please call 911 or proceed to the nearest emergency department Diet Discharge Diet: Light diet - advance as tolerated Activity Discharge Activity: May Not Drive (3 days) Lifting Restrictions: No lifting greater than 20 pounds for 4 weeks Dressing / Incision Call your doctor if your incision/area has: Continuous Slow Oozing, Sudden Increased Bleeding, Increased Pain/ Swelling, Increased Redness, Foul Smelling Discharge and Swelling at the incision site Call your doctor if you observe: Fever of 101 or Higher Suture Line Care: Avoid Pulling/Pushing and Avoid Pinching/Bending Remove Dressing in: 2 days Cleanse incision/area with: Do not get Incision Wet (For 2 days. After 2 days may wash with soap and water) Additional Dressing/Incision Instructions:: Leave steri-strips in place for 1 week Follow Up Care Please Follow Up With: Zack Oates MD When: Please contact our office at [phone], option #2 to schedule an appointment for 1 week Test Results: Test results from this visit will be discussed in further detail at your follow-up appointment, if applicable. Discharge Orders/Prescriptions Prescriptions: New Eliquis 5 mg tablet 5 mg PO BID Qty: 74 0RF Rx Instructions: Take 10 mg (2 tablets) twice daily x 7 days then transition to 5 mg (1 tablet) twice daily thereafter. oxycodone 5 mg tablet 5 mg PO Q6H PRN (Reason: pain) 3 Days Qty: 9 0RF Continued amlodipine 5 mg tablet 5 mg PO QDAY lisinopril 20 mg tablet 20 mg PO QDAY hydrocortisone [Procto-Med HC] 2.5 % cream with perineal applicator 1 applic topical Q6H PRN (Reason: hemorrhoids) multivitamin Tablet 1 tab PO DAILY Referrals / Follow Up: Zack Oates MD [Med Staff - Active Staff] - Within 1 Week Enedina Chaudhary MD [Primary Care Provider] - Within 1 Week Disposition Disposition (needs filled in before D/C Order can be placed): Home, Self Care
--- NOTE | 2023-12-08 12:39 | DS.PCM_ITS ---
Providers Date of Admission: 12/04/23 Date of Discharge: 12/08/23 Primary Care Physician: Dr. Enedina Chaudhary MD Consultations 12/04/23 21:46 Consult: General Surgery Routine Consulting Provider: Zack Oates Reason for Consult: Bx EMERGENT Consult: No MD Notified: Yes Date Notified: 12/04/23 Time Notified: 20:47 Method of Notification: Verbal Reason For Visit: ACUTE PE Diagnosis Discharge Diagnosis (1) Umbilical hernia: Status: Acute Code(s): K42.9 - Umbilical hernia without obstruction or gangrene Qualifiers: Obstruction and gangrene presence: without obstruction or gangrene Q ualified Code(s): K42.9 - Umbilical hernia without obstruction or gangrene (2) Carcinomatosis: Status: Acute Code(s): C80.0 - Disseminated malignant neoplasm, unspecified (3) Acute pulmonary embolism: Status: Acute Code(s): I26.99 - Other pulmonary embolism without acute cor pulmonale Plan # Acute pulmonary embolism # Ascites/omental caking/hernia # Alcohol use history # History of prostate cancer #Hypertension # Stage I diastolic dysfunction Medications at Discharge Home Medications amlodipine 5 mg tablet 5 mg PO QDAY 11/26/23 hydrocortisone 2.5 % topical cream with perineal applicator (Procto-Med HC) 1 applic topical Q6H PRN hemorrhoids 11/26/23 lisinopril 20 mg tablet 20 mg PO QDAY 11/26/23 multivitamin 1 tab PO DAILY 11/26/23 apixaban 5 mg tablet (Eliquis) 5 mg PO BID PE #74 tabs 12/08/23 oxycodone 5 mg tablet 5 mg PO Q6H PRN pain 3 days #9 tabs 12/08/23 Hospital Course Procedures - (12/06 umbilical hernia repair and omental biopsy with Dr. Oates) Summary of Care Provided Minutes Spent on Discharge: 35 Hospital Course: 73-year-old male history of prostate cancer and hypertension presented to [facility] 12/04/2023 due to an outpatient CT that demonstrated acute PEs as well as hernia, omental caking suspicious for metastatic disease, and small volume ascites. Hospitalist contacted for admission due to PEs with surgical consultation for biopsy. Patient vitally stable but due to the PEs required anticoagulation, given plans for biopsy and hernia repair patient started on heparin drip so that it could be held for surgical intervention. Patient went to the OR 12/06 and had drainage of ascites with omental biopsy and hernia repair with Dr. Oates. He tolerated this well and hemoglobin and vitals remained stable. Patient cleared for discharge from surgical standpoint. Patient reports he has not had a bowel movement yet but tolerated his diet and has no nausea, discussed with surgery given patient stability and tolerating diet it was felt it is still reasonable for discharge, patient transition to Eliquis. No chest pain, shortness of breath, cough on day of discharge no nausea or increasing abdominal pain. Patient feels comfortable with plan for discharge home. Discharge instructions as follows: DISCHARGE INSTRUCTIONS PLEASE READ *Please take this with you to your next doctors appointment* -You will be discharged on Eliquis, you will take 10 mg twice daily for 7 days followed by 5 mg twice daily thereafter -Please follow-up with Dr. Oates in 1 week upon discharge. Please call their office to schedule hospital follow-up appointment upon discharge. -If you have any nausea, vomiting, increased abdominal pain, other concerns please contact the surgery office or your primary care physician -Please call your primary care provider's office upon discharge to schedule a hospital follow up within 1 week. -For any concerning signs or symptoms please call 911 or proceed to the nearest emergency department Diet Discharge Diet: Light diet - advance as tolerated Activity Discharge Activity: May Not Drive (3 days) Lifting Restrictions: No lifting greater than 20 pounds for 4 weeks Dressing / Incision Call your doctor if your incision/area has: Continuous Slow Oozing, Sudden Increased Bleeding, Increased Pain/ Swelling, Increased Redness, Foul Smelling Discharge and Swelling at the incision site Call your doctor if you observe: Fever of 101 or Higher Suture Line Care: Avoid Pulling/Pushing and Avoid Pinching/Bending Remove Dressing in: 2 days Cleanse incision/area with: Do not get Incision Wet (For 2 days. After 2 days may wash with soap and water) Additional Dressing/Incision Instructions:: Leave steri-strips in place for 1 week Follow Up Care Please Follow Up With: Zack Oates MD When: Please contact our office at [phone], option #2 to schedule an appointment for 1 week Physical Exam Narrative General: Alert, oriented, no apparent distress HEENT: Atraumatic, normocephalic Eyes: Anicteric, normal conjunctiva, extraocular movements grossly intact Neck: Supple Respiratory: Clear to auscultation bilaterally, normal respiratory effort Cardiovascular: Regular rate GI: Postop, no worsening or change in pain Extremities: No edema Musculoskeletal: Moving all extremities Neuro: No overt focal neurological deficits Skin: No rashes appreciated Psych: Cooperative Weight / BMI Weight Weight: 92.9 kg Body Mass Index (BMI) 31.1 ABG / Lab / Microbiology Data 12/08/23 02:52 12/08/23 02:52 Laboratory: Laboratory Results - last 24 hr 12/08/23 02:52: WBC 6.9, RBC 3.94 L, Hgb 11.2 L, Hct 35.8 L, MCV 90.9, MCH 28.4, MCHC 31.3 L, RDW Std Deviation 42.1, RDW Coeff of [place] 12.7, Plt Count 313, MPV 9.8, Immature Gran % (Auto) 1.200 H, Neut % (Auto) 77.4 H, Lymph % (Auto) 11.7 L , [place] % (Auto) 8.6, Eos % (Auto) 0.7, Baso % (Auto) 0.4, Absolute Neuts (auto) 5.3, Absolute Lymphs (auto) 0.81 L, Nucleated RBC % 0, APTT 42.9 H, Sodium 137, Potassium 4.5, Chloride 106, Carbon Dioxide 26.0, Anion Gap 5, BUN 8, Creatinine 1.12, Estim Creat Clear Calc 62.13, Est GFR (MDRD) Af Amer 82, Est GFR (MDRD) Non-Af 68, BUN/Creatinine Ratio 7.1 L, Glucose 122 H, Calcium 8.7, Total Bilirubin 0.30, AST 13 L, ALT 17, Alkaline Phosphatase 48, Total Protein 5.5 L, Albumin 2.4 L, Globulin 3.1, Albumin/Globulin Ratio 0.8 L 12/08/23 09:57: APTT 37.4 H D/C Instructions Discharge Diet: Light diet - advance as tolerated Meaningful Use Info Meaningful Use Meaningful Use Diagnoses (Choose all that apply): VTE Ischemic Stroke Statin Dosing Therapy Reference: STATIN DOSE THERAPY REFERENCE: * Patients > 75 years receive moderate or high dose statin therapy. * Patients 75 years or YOUNGER should receive HIGH intensity statin dose unless contraindicated. You will be required to document reason for non-treatment if statin daily dose does not meet guidelines. HIGH DOSE STATIN THERAPY DAILY Atorvastatin > than or = to 40 mg Rosuvastatin > than or = to 20 mg Amlodipine + Atorvastatin > than or = to 2.5/40 mg Ezetimibe + Simvastatin 10/80 mg Simvastatin 80mg VTE Anticoag overlap given w/in hospital stay or rx'd at dc?: Yes Pt receive overlap for 5 days?: Yes Discharge Plan Admission Admit Date/Time: 12/04/23 20:46 Primary Reason for Your Visit: Hernia, Omental biopsy Attending Provider: Carmencita Reaves Primary Care Provider: Enedina Chaudhary Consulting Providers: Zack Oates; Erendira Hamilton; Campbell Mcdonnell Instructions Patient Instructions: Embolism Pulmonary Dc Additional Instructions / Restrictions: DISCHARGE INSTRUCTIONS PLEASE READ *Please take this with you to your next doctors appointment* -You will be discharged on Eliquis, you will take 10 mg twice daily for 7 days followed by 5 mg twice daily thereafter -Please follow-up with Dr. Oates in 1 week upon discharge. Please call their office to schedule hospital follow-up appointment upon discharge. -If you have any nausea, vomiting, increased abdominal pain, other concerns please contact the surgery office or your primary care physician -Please call your primary care provider's office upon discharge to schedule a hospital follow up within 1 week. -For any concerning signs or symptoms please call 911 or proceed to the nearest emergency department Diet Discharge Diet: Light diet - advance as tolerated Activity Discharge Activity: May Not Drive (3 days) Lifting Restrictions: No lifting greater than 20 pounds for 4 weeks Dressing / Incision Call your doctor if your incision/area has: Continuous Slow Oozing, Sudden Increased Bleeding, Increased Pain/ Swelling, Increased Redness, Foul Smelling Discharge and Swelling at the incision site Call your doctor if you observe: Fever of 101 or Higher Suture Line Care: Avoid Pulling/Pushing and Avoid Pinching/Bending Remove Dressing in: 2 days Cleanse incision/area with: Do not get Incision Wet (For 2 days. After 2 days may wash with soap and water) Additional Dressing/Incision Instructions:: Leave steri-strips in place for 1 week Follow Up Care Please Follow Up With: Zack Oates MD When: Please contact our office at [phone], option #2 to schedule an appointment for 1 week Test Results: Test results from this visit will be discussed in further detail at your follow- up appointment, if applicable. Discharge Orders/Prescriptions Prescriptions: New Eliquis 5 mg tablet 5 mg PO BID Qty: 74 0RF Rx Instructions: Take 10 mg (2 tablets) twice daily x 7 days then transition to 5 mg (1 tablet) twice daily thereafter. oxycodone 5 mg tablet 5 mg PO Q6H PRN (Reason: pain) 3 Days Qty: 9 0RF Continued amlodipine 5 mg tablet 5 mg PO QDAY lisinopril 20 mg tablet 20 mg PO QDAY hydrocortisone [Procto-Med HC] 2.5 % cream with perineal applicator 1 applic topical Q6H PRN (Reason: hemorrhoids) multivitamin Tablet 1 tab PO DAILY Referrals / Follow Up: Zack Oates MD [Med Staff - Active Staff] - 12/14/23 9:30 am (Appointment will be with HARISH Galicia. ) Enedina Chaudhary MD [Primary Care Provider] - Within 1 Week (Office was on lunch when press secretary called. Please call to schedule your follow up. ) Disposition Disposition (needs filled in before D/C Order can be placed): Home, Self Care Charges/Coding Visit Charges Inpatient E&M: 65594 Disch Hosp >30min
--- NOTE | 2023-12-08 12:49 | DCINST_ITS ---
Discharge Instructions Diet Discharge Diet: Light diet - advance as tolerated Activity Discharge Activity: May Not Drive (3 days) Lifting Restrictions: No lifting greater than 20 pounds for 4 weeks Dressing / Incision Call your doctor if your incision/area has: Continuous Slow Oozing, Sudden Increased Bleeding, Increased Pain/ Swelling, Increased Redness, Foul Smelling Discharge and Swelling at the incision site Call your doctor if you observe: Fever of 101 or Higher Suture Line Care: Avoid Pulling/Pushing and Avoid Pinching/Bending Remove Dressing in: 2 days Cleanse incision/area with: Do not get Incision Wet (For 2 days. After 2 days may wash with soap and water) Additional Dressing/Incision Instructions:: Leave steri-strips in place for 1 week Follow Up Care Please Follow Up With: Zack Oates MD When: Please contact our office at [phone], option #2 to schedule an appointment for 1 week Test Results: Test results from this visit will be discussed in further detail at your follow- up appointment, if applicable. Discharge Plan Admission Admit Date/Time: 12/04/23 20:46 Primary Reason for Your Visit: Hernia, Omental biopsy Attending Provider: Carmencita Reaves Primary Care Provider: Enedina Chaudhary Consulting Providers: Zack Oates; Erendira Hamilton; Campbell Mcdonnell Instructions Patient Instructions: Embolism Pulmonary Dc Additional Instructions / Restrictions: DISCHARGE INSTRUCTIONS PLEASE READ *Please take this with you to your next doctors appointment* -You will be discharged on Eliquis, you will take 10 mg twice daily for 7 days followed by 5 mg twice daily thereafter -Please follow-up with Dr. Oates in 1 week upon discharge. Please call their office to schedule hospital follow-up appointment upon discharge. -If you have any nausea, vomiting, increased abdominal pain, other concerns please contact the surgery office or your primary care physician -Please call your primary care provider's office upon discharge to schedule a hospital follow up within 1 week. -For any concerning signs or symptoms please call 911 or proceed to the nearest emergency department Discharge Orders/Prescriptions Prescriptions: New Eliquis 5 mg tablet 5 mg PO BID Qty: 74 0RF Rx Instructions: Take 10 mg (2 tablets) twice daily x 7 days then transition to 5 mg (1 tablet) twice daily thereafter. oxycodone 5 mg tablet 5 mg PO Q6H PRN (Reason: pain) 3 Days Qty: 9 0RF Continued amlodipine 5 mg tablet 5 mg PO QDAY lisinopril 20 mg tablet 20 mg PO QDAY hydrocortisone [Procto-Med HC] 2.5 % cream with perineal applicator 1 applic topical Q6H PRN (Reason: hemorrhoids) multivitamin Tablet 1 tab PO DAILY Referrals / Follow Up: Zack Oates MD [Med Staff - Active Staff] - Within 1 Week Enedina Chaudhary MD [Primary Care Provider] - Within 1 Week Disposition Disposition (needs filled in before D/C Order can be placed): Home, Self Care
[2023-12-08] MEDS: APIXABAN 5 MG TABLET 10 MG PO (13:15)
[2023-12-08 14:01] VITALS: BMI 30.2
--- NOTE | 2023-12-08 14:30 | CASEMGMT ---
Patient has order for discharge. Patient is discharging on Eliquis. RN CM called [facility], copay is $378. RN CM in to discuss needs at discharge. RN CM udpated patient regarding cost of Eliquis and provided 30day savings card. Patient denies needs or help at discharge. Patient had no further questions or concerns.
== END 2023-12-08 15:45 | disposition home or self-care (01) | DRG 982 ==
LOC: ED 20:36 → PCU 20:57
PROVIDERS: Internal Medicine; Surgery; Admitting Provider Family Medicine; Emergency Provider Emergency Medicine; PCP Family Medicine; Visit Provider Internal Medicine
PROC: 0WQF4ZZ Repair Abdominal Wall, Percutaneous Endoscopic Approach (ICD-10-PCS; principal; 2023-12-07 13:30)
DX: I26.99 Other pulmonary embolism without acute cor pulmonale (principal); C78.6 Secondary malignant neoplasm of retroperitoneum and peritoneum; R18.0 Malignant ascites; I10 Essential (primary) hypertension; F10.10 Alcohol abuse, uncomplicated; D64.9 Anemia, unspecified; E66.9 Obesity, unspecified; K42.9 Umbilical hernia without obstruction or gangrene; E78.5 Hyperlipidemia, unspecified; J92.9 Pleural plaque without asbestos; Z66 Do not resuscitate; I49.3 Ventricular premature depolarization; Z87.891 Personal history of nicotine dependence; Z80.42 Family history of malignant neoplasm of prostate; Z51.5 Encounter for palliative care; Z92.21 Personal history of antineoplastic chemotherapy; Z92.3 Personal history of irradiation; Z85.46 Personal history of malignant neoplasm of prostate; Z68.30 Body mass index [BMI] 30.0-30.9, adult; Y90.9 Presence of alcohol in blood, level not specified
CPT/HCPCS: 36415; 71260; 74177; 80048; 80053; 83735; 83880; 84484; 85025; 85610; 85730; 88108; 88302; 88305; 88313; 88341; 88342; 93005; 93306; 94668; 99285; J7030; J7120; Q9957; Q9967; A4216; J2405

== ENCOUNTER → 2023-12-04 | Outpatient (CLI) | payer MEDICARE, OTHER, SELFPAY ==
--- NOTE | 2023-12-04 14:29 | CT_ITS ---
We are attempting to reach an attending provider to discuss findings. An addendum with communication details will be sent when the communication is complete. STUDY: CT CHEST, ABDOMEN T PELVIS WITH CONTRAST REASON FOR EXAM: Male, 73 years old. Abdominal pain, history of prostate cancer RADIATION DOSAGE (If Supplied By Facility): CTDIvol = ( 19.30 ) mGy, DLP = ( 3184.30 ) mGycm TECHNIQUE: Transaxial imaging was performed following intravenous administration of Oral and 100mL Isovue-300. Individualized dose optimization techniques were used for this CT. COMPARISON: CT abdomen and pelvis 11/10/2016 FINDINGS: CHEST Multiple filling defects in segmental and subsegmental pulmonary artery branches to the right middle and lower lobes. No consolidations. Pleural-based 11 mm nodule superior segment right lower lobe with adjacent pleural thickening. No pleural effusions. Normal heart and pericardium. Multinodular goiter with extensive calcifications. No mediastinal or hilar adenopathy. Normal aorta arch and descending thoracic aorta. Degenerative changes right shoulder. No acute or aggressive osseous abnormality. ABDOMEN Moderate ascites. No free air. Multiple stable hepatic cysts. Gallbladder contracted. No abnormal biliary ductal dilatation. Normal spleen. Normal pancreas. Normal bilateral adrenal glands. Nonobstructing right renal calculus. No hydronephrosis. Normal visualized stomach. No abnormal bowel distention. There is non-visualization of the appendix. Normal abdominal aorta. Anterior peritoneal caking up to 1.9 cm thickness. Normal retroperitoneum. Fat and fluid-containing umbilical hernia. No acute or aggressive osseous abnormality. PELVIS Urinary bladder minimally distended. Mild wall thickening and inflammatory stranding. There is no pelvic fluid. There is no pelvic lymphadenopathy or mass lesion. Prostate bed small with therapy implant seeds. Normal visualized pelvic arteries. Normal lower abdominal wall. No acute or aggressive osseous abnormalities. CT/CT Chest, Abd, Pel w/Contrast IMPRESSION: Study positive for pulmonary emboli in the segmental and subsegmental pulmonary artery branches to the right middle and lower lobes. Pleural-based 11 mm nodule superior segment right lower lobe with adjacent pleural thickening. Per Fleischner Society guidelines follow-up CT, PET/CT or tissue sampling recommended in 3 months. Abdominal ascites with anterior peritoneal cake formation suspicious for metastatic disease. Electronically Signed: Ciro Beverly MD at 16:04 EDT ,
== END | disposition home or self-care (01) ==
LOC: CT 14:28
PROVIDERS: PCP Family Medicine; Referring Provider Surgery; Visit Provider Surgery
DX: R10.9 Unspecified abdominal pain (principal); R93.5 Abnormal findings on diagnostic imaging of other abdominal regions, including retroperitoneum; R18.8 Other ascites
CPT/HCPCS: 71260; 74177; Q9967

== ENCOUNTER 2023-12-22 09:15 | Day surgery (SDC) | payer MEDICARE, OTHER, SELFPAY ==
[2023-12-22] VITALS (8 sets, daily range): BP systolic 107–139; BP diastolic 68–81; PULSE 82–116; RESP 16–18; TEMP 36.8–38; O2SAT 95–98; BMI 29.1
[2023-12-22] MEDS: Lactated Ringers 1,000 ML 15 ML IV (09:30)
--- NOTE | 2023-12-22 09:33 | PCM.PRE.AN2 ---
ASA Classification* ASA Classification ASA Classification: 3 Assessment & Plan Anesthesia* Anesthesia Assessment Anesthesia Assessment: Discussed sedation and/or anesthesia options, risks, benefits, and alternatives with patient/parents/legal guardian/POA. Questions invited. The patient/parents/legal guardian/POA seems to understand and agrees to proceed with anesthesia plan. Reviewed the physical assessment, medical history, allergy history and patient home medications list prior to surgery/procedure/anesthetic and documented any changes. Performed airway and anesthesia risk assessments. Anesthesia Type Anesthesia Type: MAC (see written pre anesthesia record for full assessment) Anesthesia Focused Assessment* Airway Assessment Mouth opens: >3 cm Mallampati Score: II Focused Labs Anesthesia Preop lab: CBC WBC 6.9 K/mm3 (4.4-11.0) 12/08/23 02:52 RBC 3.94 M/mm3 (4.6-6.2) L 12/08/23 02:52 Hgb 11.2 g/dL (13.0-16.5) L 12/08/23 02:52 Hct 35.8 % (40-54) L 12/08/23 02:52 Plt Count 313 K/mm3 (150-450) 12/08/23 02:52 CHEMISTRY Potassium 4.5 mmol/L (3.5-5.1) 12/08/23 02:52 Sodium 137 mmol/L (136-145) 12/08/23 02:52 Magnesium 2.3 mg/dL (1.6-2.6) 12/04/23 19:09 BUN 8 mg/dL (7-18) 12/08/23 02:52 Creatinine 1.12 mg/dL (0.70-1.30) 12/08/23 02:52 Glucose 122 mg/dL (74-106) H 12/08/23 02:52 TSH 0.99 uIU/mL (0.358-3.74) 08/02/14 14:42 COAG PT 15.3 SECONDS (11.7-14.9) H 12/04/23 19:09 Pre-Assessment Diagnosis/Proposed Procedure Planned Operative Procedure(s): EGD/CSCOPE Anesthesia History Anesthesia History - environmental services director: Anesthesia History - environmental services director Hx Hospitalization No 12/17/23 10:44 Any Problems With Anesthesia No 12/17/23 10:44 Cholinesterase deficiency No 12/17/23 10:44 You/Your Family Experience No 12/17/23 10:44 fever (hyperthermia) with Relationship Recent Exposure to Contagious No 12/07/23 02:30 Disease Does patient have nerve No 12/17/23 10:44 stimulator Patient instructed to have device shut off --Does patient have Pacemaker or ICD? When Was Last Pacemaker Check QUESTION #4 FULL TEXT: You/Your Family Experience fever (hyperthermia) with Anesthesia Last Oral Intake Last Oral intake: Last Oral Intake NPO since Meds taken in AM with sips of water? Meds patient instructed to take am of surgery PONV PONV - environmental services director: PONV - environmental services director Female No 12/17/23 10:44 HX of Motion Sickness No 12/17/23 10:44 HX of N/V After Surgery No 12/17/23 10:44 Non-Smoker Yes 12/17/23 10:44 Duration of Surgery greater No 12/17/23 10:44 than 60 minutes Number of Risk Factors 1 12/17/23 10:44 PONV Score Low Risk 12/17/23 10:44 Height & Weight Height & Weight: Anesthesia: Height & Weight Height 5 ft 8 in 12/15/23 16:08 Respiratory Assessment Respiratory Assessment - environmental services director: Respiratory Tract Infection Hx - environmental services director Hx Respiratory Tract Infection No 12/17/23 10:44 STOP Sleep Apnea STOP Sleep Apnea - environmental services director: STOP Sleep Apnea - environmental services director Hx Hypertension Yes: CONTROLLED WITH MEDS 12/17/23 10:44 Hx Sleep Apnea No 12/17/23 10:44 CPAP BIPAP Do you snore loudly (louder No 12/17/23 10:44 than talking or can be heard Do you often feel tired/ No 12/17/23 10:44 fatigued/ sleepy during daytime? Has anyone observed you stop No 12/17/23 10:44 breathing during sleep? STOP Results Negative 12/17/23 10:44 QUESTION #5 FULL TEXT : Do you snore loudly (louder than talking or can be heard through closed doors)? 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 Specify any problems Hx of Preganancy in last 3 N/A 12/17/23 10:44 Months Nurse Filling Out Transfusion DSCHRIBER 12/17/23 10:44 & Questions: Date: 12/17/23 12/17/23 10:44 Time: 10:45 12/17/23 10:44 Patient unable to answer at this time (ie. 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 Malignant ascites Peritoneal carcinomatosis ETOH abuse Abdominal carcinomatosis History of prostate cancer Obesity HLD (hyperlipidemia) Prostate CA HTN (hypertension) Home Medications ?Medication ?Instructions ?Recorded ?Last Taken ?Type amlodipine 5 mg tablet 5 mg PO QHS 11/26/23 Unknown History hydrocortisone 2.5 % topical cream 1 applic topical Q6H PRN 11/26/23 Unknown History with perineal applicator hemorrhoids (Procto-Med HC) lisinopril 20 mg tablet 20 mg PO QHS 11/26/23 Unknown History multivitamin 1 tab PO DAILY 11/26/23 Unknown History apixaban 5 mg tablet (Eliquis) 5 mg PO BID PE #74 tabs 12/08/23 Unknown Rx acetaminophen 650 mg 650 mg PO Q8H PRN pain 12/15/23 Unknown History tablet,extended release (Tylenol Arthritis Pain) Allergy/AdvReac Type Severity Reaction Status Date / Time No Known Allergies Allergy Verified 12/17/23 10:42 Family History Mother Cancer Father Prostate cancer Sister Cancer Other Breast cancer Surgical History H/O umbilical hernia repair Social History household members: spouse Smoking Status: Former smoker Tobacco: How many years used: 30 how long ago did patient quit smoking: early alcohol intake: former details: Reports 4 beers or 2-24 ounce beers daily. substance use type: does not use Review of Systems (Anesthesia) ROS Narrative System reviewed and no additional complaints, except as documented.
--- NOTE | 2023-12-22 10:12 | HP.PCM_ITS ---
History and Physical Date of Admission: 12/22/23 Intake Vital Signs 12/06/2409:14 12/13/2408:21 Height 5 ft 8 in 5 ft 8 in Weight: 204 lb BMI 31.0 BP 164/75 H Blood Pressure Location Rt brachial Position Sitting Respiration 18 Pulse 72 Pulse Source Monitor Temp 97.5 F L Temp Source Temporal Pulse Oximetry (%) 97 Oxygen Delivery Method room air Intake Visit Reasons: Umbilical hernia repair DOS 12/06 Chief Complaint: umbilical hernia repair DOS 12/06 Accompanied by: , son, daughter Is patient in pain?: No Allergies No Known Allergies Allergy (Verified 12/04/23 17:37) Have you fallen in the past year?: No PFSH Medical History ETOH abuse Abdominal carcinomatosis History of prostate cancer Obesity HLD (hyperlipidemia) Prostate CA HTN (hypertension) Ascites Surgical History No history of previous surgery Family History Mother CancerFather Prostate cancer Social History household members: spouse Smoking Status: Former smoker how long ago did patient quit smoking: Quit 1979, smoked 1 ppd since teen until quit. alcohol intake: current alcohol intake frequency: 3 or more drinks per day details: Reports 4 beers or 2-24 ounce beers daily. substance use type: does not use HPI HPI HPI: Patient is a 73-year-old male here with metastatic carcinoma. Patient is here following up after biopsy in the hospital. ROS General General: No weight change, appetite, fatigue, colon cancer, breast cancer or weakness HEENT HEENT: No difficulty swallowing, eye injury, eye surgery, swollen glands or hoarseness Endo Endocrine: No thyroid disease, diabetes mellitus, thyroid cancer, Hair loss, heat intolerance or cold intolerance Skin Skin: No rash or changing moles Breast Breast: No left breast lump, right breast lump, nipple discharge, breast pain, abnormal mammogram, abnormal US or breast enlargement Musc Musculoskeletal: No back problems, arthritis, rheumatoid arthritis, gout or joint pain Cardio Cardiovascular: Yes high blood pressure; No murmur, pacemaker, heart disease, atrial fibrillation, heart attack, heart stent, palpitations, shortness of breat with exertion or chest pain Psych Psychiatric: No depression, anxiety or hearing voices Resp Respiratory: No shortness of breath, No sleep apnea, No cough, No COPD, No asthma, No emphysema and No wheezing Gastro Gastrointestinal: Yes abdominal pain, No nausea or vomiting, No diarrhea, No constipation, No blood in stool, No acid reflux, Yes hemorrhoids, No ulcers, No gallbladder problem and No black,tarry stools Ok Hematologic: No blood thinners, No blood disorders, No bleeding, No anemia and No blood clots Neuro Neurologic: No system reviewed and no additional complaints, except as documented, No as per HPI, No abnormal gait, No abnormal hearing, No abnormal movements, No abnormal speech, No behavioral changes, No burning sensations, No confusion, No convulsions, No disequilibrium, No dizziness, No localized weakness, No frequent falls, No headache(s), No lack of coordination, No loss of vision, No memory loss, No numbness, No other visual disturbances, No radicular pain, No restless legs, No sensory deficit, No syncope, No tingling, No tremor(s), No weakness and No other Exam Const General: cooperative Orientation: alert and oriented x3 HENMT Head: normal to inspection Neck Neck: normal visual inspection and full ROM Chest Chest palpation & inspection: normal inspection of the chest Resp Effort & Inspection: normal respiratory effort Auscultation: clear to auscultation bilaterally Cardio Rate: regular rate Rhythm: regular rhythm GI Inspection: non-distended Palpation: soft and nontender Skin General: no rashes or lesions noted Neuro General: patient alert and patient oriented x3 Extrem General: full ROM Psych Appearance: grossly normal Mental Status: mental status grossly normal Assessment and Plan Assessment and Plan (1) Umbilical hernia: Status: Acute Qualifiers: Obstruction and gangrene presence: without obstruction or gangrene Qualified Code(s): K42.9 - Umbilical hernia without obstruction or gangrene Plan: Umbilical hernia site is healing well (2) Carcinomatosis: Status: Acute Plan: Patient has carcinomatosis and was referred to oncology. I will wait to hear back from them to see what the plan is. The patient recently had colonoscopy 2021 which was normal. Unsure if the patient needs rescoped. I will wait to hear oncology opinion. If they would like a repeat scope I will perform a double scope for him and if they would like a port placement I will place a port for him. Unsure if a PET scan will be ordered as well. (3) Acute pulmonary embolism: Status: Acute Plan: Patient has acute PE. He was started on blood thinners in the hospital and sent home on oral blood thinners. Zack Oates MD Pager: [facility] [address] [place] [address], [address] [place] [address] Office: Patient saw oncology and they recommended upper and lower scope. Plan for EGD and colonoscopy. I explained endoscopy in detail to the patient. I explained the risks including but not limited to stroke or heart attack with anesthesia, perforation of the GI tract, bleeding, infection. I explained that any of these could necessitate further emergency surgery. The patient understands and all questions were answered sufficiently. The patient wishes to proceed with procedure. Patient is also having increased abdominal distention and I will order a paracentesis for comfort. I have examined the patient and the H&P has been reviewed. There are no other clinical changes since date of exam.
--- NOTE | 2023-12-22 10:39 | OP.EGD_ITS ---
Patient Name: Roberto Carlos Riddle Procedure Date: 12/22/2023 10:12 AM Date of : 1950 Age: 73 Procedure: Upper GI endoscopy Indications: Tumor of the GI tract Providers: Zack Oates MD Medicines: Propofol per Anesthesia Patient Profile: This is a 73 year old male. Refer to note in patient chart for documentation of history and physical. Complications: No immediate complications. Procedure: Pre-Anesthesia Assessment: - Prior to the procedure, a History and Physical was performed, and patient medications and allergies were reviewed. The patient's tolerance of previous anesthesia was also reviewed. The risks and benefits of the procedure and the sedation options and risks were discussed with the patient. All questions were answered, and informed consent was obtained. Prior Anticoagulants: The patient has taken Eliquis (apixaban), last dose was 2 days prior to procedure. After reviewing the risks and benefits, the patient was deemed in satisfactory condition to undergo the procedure. After obtaining informed consent, the endoscope was passed under direct vision. Throughout the procedure, the patient's blood pressure, pulse, and oxygen saturations were monitored continuously. The colonoscope was introduced through the mouth, and advanced to the fourth part of duodenum. The upper GI endoscopy was accomplished without difficulty. The patient tolerated the procedure well. Scope In: 10:20:57 AM Scope Out: 10:23:26 AM Total Procedure Duration Time 0 hours 2 minutes 29 seconds Findings: The esophagus was normal. The stomach was normal. The examined duodenum was normal. Impression: - Normal esophagus. - Normal stomach. - Normal examined duodenum. - No specimens collected. Recommendation: - Discharge patient to home. - Resume previous diet. - Continue present medications. Procedure Code(s): --- Professional --- 46476, Esophagogastroduodenoscopy, flexible, transoral; diagnostic, including collection of specimen(s) by brushing or washing, when performed (separate procedure) Diagnosis Code(s): --- Professional --- D49.0, Neoplasm of unspecified behavior of digestive system CPT copyright 2021 [employer]. All rights reserved. The codes documented in this report are preliminary and upon key punch operator review may be revised to meet current compliance requirements. Zack Oates MD 12/22/2023 10:38:41 AM This report has been signed electronically. Number of Addenda: 0 Note Initiated On: 12/22/2023 10:12 AM
--- NOTE | 2023-12-22 10:39 | OP.CCLET_ITS ---
12/22/2023 Enedina Chaudhary [address] [place] [address] Re : Upper GI endoscopy procedure for Roberto Carlos Riddle Dear Dr. Chaudhary This procedure was performed on Friday, December 22, 2023. My impressions and recommendations are as follows: Impressions : - Normal esophagus. - Normal stomach. - Normal examined duodenum. - No specimens collected. Recommendations : - Discharge patient to home. - Resume previous diet. - Continue present medications. My findings are described in the full procedure note, which is enclosed. If I can be of further assistance, please feel free to contact me at Doctor phone number(s): , Work: . Sincerely, Zack Oates MD 12/22/2023 10:38:41 AM This report has been signed electronically.
--- NOTE | 2023-12-22 10:46 | EKG12_ITS ---
Test Reason : Blood Pressure : / mmHG Vent. Rate : 084 BPM Atrial Rate : 084 BPM P-R Int : 132 ms QRS Dur : 082 ms QT Int : 372 ms P-R-T Axes : 048 034 022 degrees QTc Int : 439 ms Normal sinus rhythm Normal ECG When compared with ECG of 04-DEC-2023 19:04, Premature ventricular complexes are no longer Present Confirmed by NIKOLE WANG, EDUARD ([id number]), food expeditor BETTY MILLER ([id number]) on 12/31/2023 1:08:46 PM Referred By: Enedina Chaudhary Confirmed By:EDUARD AGUSTIN MD
--- NOTE | 2023-12-22 10:46 | PCM.POST.ANE ---
Anesthesia: Postop Eval I Current Vital Signs Temperature: 100.1 F Pulse Rate: 82 Blood Pressure: 107/71 Respiratory Rate: 16 Pulse Ox: 98 Oxygen Delivery Method: Room Air Assessment Airway patent: Yes Spontaneous unlabored respirations: Yes Mental status: Awake and Calm nausea: No Vomiting: No Anesthesia Complication: No Fluid Hydration Crystalloid volume administer (ml): 600 Total IV fluid infused: 600 Progress Note Anesthesia document: Postop Eval 1 completed: Yes
--- NOTE | 2023-12-22 10:48 | OP.COLON_ITS ---
Patient Name: Roberto Carlos Riddle Procedure Date: 12/22/2023 10:23 AM Date of : 1950 Age: 73 Procedure: Colonoscopy Indications: Colorectal cancer Providers: Zack Oates MD Medicines: Propofol per Anesthesia Patient Profile: This is a 73 year old male. Refer to note in patient chart for documentation of history and physical. Last Colonoscopy: 5 years ago. Complications: No immediate complications. Procedure: Pre-Anesthesia Assessment: - Prior to the procedure, a History and Physical was performed, and patient medications and allergies were reviewed. The patient's tolerance of previous anesthesia was also reviewed. The risks and benefits of the procedure and the sedation options and risks were discussed with the patient. All questions were answered, and informed consent was obtained. Prior Anticoagulants: The patient has taken Eliquis (apixaban), last dose was 2 days prior to procedure. After reviewing the risks and benefits, the patient was deemed in satisfactory condition to undergo the procedure. - Prior to the procedure, a History and Physical was performed, and patient medications and allergies were reviewed. The patient's tolerance of previous anesthesia was also reviewed. The risks and benefits of the procedure and the sedation options and risks were discussed with the patient. All questions were answered, and informed consent was obtained. Prior Anticoagulants: The patient has taken Eliquis (apixaban), last dose was 2 days prior to procedure. After reviewing the risks and benefits, the patient was deemed in satisfactory condition to undergo the procedure. After I obtained informed consent, the scope was passed under direct vision. Throughout the procedure, the patient's blood pressure, pulse, and oxygen saturations were monitored continuously. The colonoscope was introduced through the anus and advanced to the cecum, identified by appendiceal orifice and ileocecal valve. The colonoscopy was performed without difficulty. The patient tolerated the procedure well. The quality of the bowel preparation was good. The ileocecal valve, appendiceal orifice, and rectum were photographed. Scope In: 10:24:42 AM Scope Withdrawal Time 0 hours 6 minutes 48 seconds Scope Out: 10:35:27 AM Total Procedure Duration Time 0 hours 10 minutes 45 seconds Findings: The entire examined colon appeared normal on direct and retroflexion views. Impression: - The entire examined colon is normal on direct and retroflexion views. - No specimens collected. Recommendation: - Discharge patient to home. - Resume previous diet. - Continue present medications. - Resume Eliquis (apixaban) at prior dose tomorrow. - Return to oncologist at appointment to be scheduled. - No repeat colonoscopy. 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 All rights reserved. The codes documented in this report are preliminary and upon call out operator review may be revised to meet current compliance requirements. Zack Oates MD 12/22/2023 10:47:57 AM This report has been signed electronically. Number of Addenda: 0 Note Initiated On: 12/22/2023 10:23 AM
--- NOTE | 2023-12-22 10:48 | OP.CCLET_ITS ---
12/22/2023 Ened[address] Chaudhary [address] [place] [address] Re : Colonoscopy procedure for Roberto Carlos Riddle Dear Dr. Chaudhary This procedure was performed on Friday, December 22, 2023. My impressions and recommendations are as follows: Impressions : - The entire examined colon is normal on direct and retroflexion views. - No specimens collected. Recommendations : - Discharge patient to home. - Resume previous diet. - Continue present medications. - Resume Eliquis (apixaban) at prior dose tomorrow. - Return to oncologist at appointment to be scheduled. - No repeat colonoscopy. My findings are described in the full procedure note, which is enclosed. If I can be of further assistance, please feel free to contact me at Doctor phone number(s): , Work: . Sincerely, Zack Oates MD 12/22/2023 10:47:57 AM This report has been signed electronically.
--- NOTE | 2023-12-22 11:34 | PCM.POSTANE2 ---
Anesthesia Postop Eval I Sum Postop Eval Completion status Anesthesia document: Postop Eval 1 completed: Yes Anesthesia Postop Eval I Summary Anesthesia Postop Eval I Summary: Anesthesia Postop Eval I: Assessment Summary Airway patent Yes 12/22/23 10:47 [email or web address] Spontaneous unlabored Yes 12/22/23 10:47 [email or web address] respirations Mental status Awake,Calm 12/22/23 10:47 [email or web address] nausea No 12/22/23 10:47 [email or web address] Vomiting No 12/22/23 10:47 [email or web address] Anesthesia Postop Eval I: Fluid Summary Crystalloid volume administer 600 12/22/23 10:47 [email or web address] (ml) Colloids volume administered ( ml) Blood Product volume administered (ml) Total IV fluid infused 600 12/22/23 10:47 [email or web address] Anesthesia Postop Eval I: Summary Notes Anesthesia Complication No 12/22/23 10:47 [email or web address] Anesthesia Complication Comment: Post-operative progress note Anesthesia: Postop Eval II Evaluation Mental status: Awake and Calm Pain Level: 0 nausea: No Vomiting: No Complications Anesthesia Complication: No
--- NOTE | 2023-12-22 12:54 | US_ITS ---
STUDY: ABDOMINAL ULTRASOUND -ascites assessment. REASON FOR VISIT: Male, 73 years old fluid in abdomen TECHNIQUE: Ultrasound evaluation of the 4 quadrant was performed with real-time and static ramirez-scale imaging. TECHNICAL QUALITY: Adequate. COMPARISON: None. FINDINGS: Small amount of free intraperitoneal fluid. Not enough fluid for safe paracentesis. US/Abdomen Limited IMPRESSION: Not enough for safe paracentesis. Electronically Signed: Randy Oneil MD at 15:22 EDT ,
== END 2023-12-22 12:02 | disposition home or self-care (01) ==
LOC: EN 09:16 → AC 09:18
PROVIDERS: PCP Family Medicine; Referring Provider Family Medicine; Visit Provider Surgery
PROC: 0DJD8ZZ Inspection of Lower Intestinal Tract, Via Natural or Artificial Opening Endoscopic (ICD-10-PCS; CPT 45378; principal; 2023-12-22 10:25)
DX: C19 Malignant neoplasm of rectosigmoid junction (principal); I26.99 Other pulmonary embolism without acute cor pulmonale; Z87.891 Personal history of nicotine dependence; E78.5 Hyperlipidemia, unspecified; I10 Essential (primary) hypertension; K42.9 Umbilical hernia without obstruction or gangrene
CPT/HCPCS: 45378; 43235; 76705; 93005; J2405

== ENCOUNTER 2024-01-14 07:21 | Day surgery (SDC) | payer MEDICARE, OTHER, SELFPAY ==
[2024-01-14] VITALS (8 sets, daily range): BP systolic 114–148; BP diastolic 65–79; PULSE 85–103; RESP 16–102; TEMP 36.1–36.9; O2SAT 97–100; BMI 28.1
--- NOTE | 2024-01-14 08:13 | PRE.ANES_ITS ---
ASA Classification* ASA Classification ASA Classification: 3 Assessment & Plan Anesthesia* Anesthesia Assessment Anesthesia Assessment: Discussed sedation and/or anesthesia options, risks, benefits, and alternatives with patient/parents/legal guardian/POA. Questions invited. The patient/parents/legal guardian/POA seems to understand and agrees to proceed with anesthesia plan. Reviewed the physical assessment, medical history, allergy history and patient home medications list prior to surgery/procedure/anesthetic and documented any changes. Performed airway and anesthesia risk assessments. Anesthesia Type Anesthesia Type: MAC (see written pre anesthesia record for full assessment) Anesthesia Focused Assessment* Temperature: 96.9 F Pulse Rate: 102 Blood Pressure: 148/79 Respiratory Rate: 102 Pulse Ox: 100 Airway Assessment Mouth opens: >3 cm Mallampati Score: II Focused Labs Anesthesia Preop lab: CBC WBC 7.3 K/mm3 (4.4-11.0) 12/31/23 09:58 RBC 3.62 M/mm3 (4.6-6.2) L 12/31/23 09:58 Hgb 9.6 g/dL (13.0-16.5) L 12/31/23 09:58 Hct 30.4 % (40-54) L 12/31/23 09:58 Plt Count 510 K/mm3 (150-450) H 12/31/23 09:58 CHEMISTRY Potassium 3.9 mmol/L (3.5-5.1) 12/31/23 09:58 Sodium 132 mmol/L (136-145) L 12/31/23 09:58 Magnesium 2.0 mg/dL (1.6-2.6) 12/31/23 09:58 Phosphorus 3.8 mg/dL (2.5-4.9) 12/31/23 09:58 BUN 12 mg/dL (7-18) 12/31/23 09:58 Creatinine 0.87 mg/dL (0.70-1.30) 12/31/23 09:58 Glucose 113 mg/dL (74-106) H 12/31/23 09:58 TSH 0.99 uIU/mL (0.358-3.74) 08/02/14 14:42 COAG PT 15.3 SECONDS (11.7-14.9) H 12/04/23 19:09 Pre-Assessment Diagnosis/Proposed Procedure Planned Operative Procedure(s): (R) Insertion, Vascular Port right poss left Anesthesia History 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 When Was Last Pacemaker Check QUESTION #4 FULL TEXT: You/Your Family Experience fever (hyperthermia) with Anesthesia Last Oral Intake Last Oral intake: Last Oral Intake NPO since 17:00 01/14/24 07:43 Meds taken in AM with sips of Yes 01/14/24 07:43 water? Meds patient instructed to tylenol 01/14/24 07:43 take am of surgery PONV PONV - construction job cost estimator: PONV - construction job cost estimator Female No 01/07/24 09:02 HX of Motion Sickness No 01/07/24 09:02 HX of N/V After Surgery No 01/07/24 09:02 Non-Smoker Yes 01/07/24 09:02 Duration of Surgery greater No 01/07/24 09:02 than 60 minutes Number of Risk Factors 1 01/07/24 09:02 PONV Score Low Risk 01/07/24 09:02 Height & Weight Height & Weight: Anesthesia: Height & Weight Height 5 ft 8 in 01/14/24 07:43 Weight: 84 kg 01/14/24 07:43 Body Mass Index (BMI) 28.1 01/14/24 07:43 Respiratory Assessment Respiratory Assessment - construction job cost estimator: Respiratory Tract Infection Hx - construction job cost estimator Hx Respiratory Tract Infection No 01/07/24 09:02 STOP Sleep Apnea STOP Sleep Apnea - construction job cost estimator: STOP Sleep Apnea - construction job cost estimator Hx Hypertension Yes: CONTROLLED WITH MEDS 01/07/24 09:02 Hx Sleep Apnea No 01/07/24 09:02 CPAP BIPAP Do you snore loudly (louder No 01/07/24 09:02 than talking or can be heard Do you often feel tired/ No 01/07/24 09:02 fatigued/ sleepy during daytime? Has anyone observed you stop No 01/07/24 09:02 breathing during sleep? STOP Results Negative 01/07/24 09:02 QUESTION #5 FULL TEXT : Do you snore loudly (louder than talking or can be heard through closed doors)? 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: Tobacco Use History - construction job cost estimator Tobacco Use Smoking Status Former smoker 01/07/24 09:02 Hx Tobacco Use No 01/07/24 09:02 Years Smoking Packs Smoked per Day Smoking Cessation Date was No - quit smoking greater 01/07/24 09:02 within the last 15 years than 15 years ago Hx Smoking Cessation Date 03/30/78 01/07/24 09:02 Hx Smoking Cessation Counseling Hematologic Medial History Hematologic Hx - construction job cost estimator: Hematologic Medical Hx - clinical secretary Hx of Blood Transfusion No 01/07/24 09:02 Hx of Transfusion in last 3 No 01/07/24 09:02 Months Date of Last Transfusion (if within last 3 months) Ever experience any problems No 01/07/24 09:02 with transfusion(s)? Specify any problems Hx of Preganancy in last 3 N/A 01/07/24 09:02 Months Nurse Filling Out Transfusion NBUCHER 01/07/24 09:02 & Questions: Date: 01/07/24 01/07/24 09:02 Time: 09:03 01/07/24 09:02 Patient unable to answer at this time (ie. confused, unrespo /Reproduction History /Reproductive History - construction job cost estimator: /Reproductive Hx- construction job cost estimator Hx Now Gestational Age (in weeks): EDC: Hx Hx Para Hx Section SAB No 01/07/24 09:02 Active Medications Active Medications: Current Medications Generic Name Dose Route Start Last Admin Trade Name Freq PRN Reason Stop Dose Admin Cefazolin Sodium 2 gm/ N/A 20 mls @ 400 mls/hr 01/14/24 09:15 IV 01/14/24 09:17 PREOP ONE PFSH Medical History Cancer Encounter for education Wears hearing aid Wears glasses Back pain Pulmonary embolism Former smoker History of echocardiogram Lung nodule 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 Malignant ascites Peritoneal carcinomatosis ETOH abuse Abdominal carcinomatosis History of prostate cancer Obesity HLD (hyperlipidemia) Prostate CA HTN (hypertension) Home Medications ?Medication ?Instructions ?Recorded ?Last Taken ?Type amlodipine 5 mg tablet 5 mg PO QHS 11/26/23 Unknown History hydrocortisone 2.5 % topical cream 1 applic topical Q6H PRN 11/26/23 Unknown History with perineal applicator hemorrhoids (Procto-Med HC) lisinopril 20 mg tablet 20 mg PO QHS 11/26/23 Unknown History multivitamin 1 tab PO DAILY 11/26/23 Unknown History apixaban 5 mg tablet (Eliquis) 5 mg PO BID PE #74 tabs 12/08/23 01/11/24 Rx acetaminophen 650 mg 650 mg PO Q8H PRN pain 12/15/23 01/14/24 06:00 History tablet,extended release (Tylenol Arthritis Pain) lidocaine-prilocaine 2.5 %-2.5 % 1 applic topical ONCE PRN port 01/05/24 Unknown Rx topical cream access 30 days #30 grams ondansetron 8 mg disintegrating 8 mg PO Q8H PRN nausea and 01/05/24 Unknown Rx tablet vomiting #30 tabs prochlorperazine maleate 10 mg 10 mg PO Q6H PRN nausea and 01/05/24 Unknown Rx tablet vomiting #30 tabs Allergy/AdvReac Type Severity Reaction Status Date / Time No Known Allergies Allergy Verified 01/07/24 09:01 Family History Mother Cancer Father Prostate cancer Sister Cancer Other Breast cancer Surgical History H/O umbilical hernia repair Social History household members: spouse Smoking Status: Former smoker Tobacco: How many years used: 30 how long ago did patient quit smoking: early alcohol intake: former details: Reports 4 beers or 2-24 ounce beers daily. substance use type: does not use Review of Systems (Anesthesia) ROS Narrative System reviewed and no additional complaints, except as documented.
--- NOTE | 2024-01-14 08:34 | PCM.HP.STD ---
HPI - General HPI Narrative JACOB FISCHER, is a 73 M who presents for right chest port placement. Patient is here before receiving chemotherapy. His first treatment is next week. He has carcinomatosis. 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 Malignant ascites Peritoneal carcinomatosis ETOH abuse Abdominal carcinomatosis History of prostate cancer Obesity HLD (hyperlipidemia) Prostate CA HTN (hypertension) Home Medications ?Medication ?Instructions ?Recorded ?Last Taken ?Type amlodipine 5 mg tablet 5 mg PO QHS 11/26/23 Unknown History hydrocortisone 2.5 % topical cream 1 applic topical Q6H PRN 11/26/23 Unknown History with perineal applicator hemorrhoids (Procto-Med HC) lisinopril 20 mg tablet 20 mg PO QHS 11/26/23 Unknown History multivitamin 1 tab PO DAILY 11/26/23 Unknown History apixaban 5 mg tablet (Eliquis) 5 mg PO BID PE #74 tabs 12/08/23 01/11/24 Rx acetaminophen 650 mg 650 mg PO Q8H PRN pain 12/15/23 01/14/24 06:00 History tablet,extended release (Tylenol Arthritis Pain) lidocaine-prilocaine 2.5 %-2.5 % 1 applic topical ONCE PRN port 01/05/24 Unknown Rx topical cream access 30 days #30 grams ondansetron 8 mg disintegrating 8 mg PO Q8H PRN nausea and 01/05/24 Unknown Rx tablet vomiting #30 tabs prochlorperazine maleate 10 mg 10 mg PO Q6H PRN nausea and 01/05/24 Unknown Rx tablet vomiting #30 tabs Allergy/AdvReac Type Severity Reaction Status Date / Time No Known Allergies Allergy Verified 01/07/24 09:01 Family History Mother Cancer Father Prostate cancer Sister Cancer Other Breast cancer Surgical History H/O umbilical hernia repair Social History household members: spouse Smoking Status: Former smoker Tobacco: How many years used: 30 how long ago did patient quit smoking: early alcohol intake: former details: Reports 4 beers or 2-24 ounce beers daily. substance use type: does not use Vital Signs Vital Signs Vital Signs: 01/14/24 07:43 01/14/24 07:43 01/14/24 08:13 Temperature 96.9 F L 96.9 F L Temperature Source Temporal Pulse Rate 102 H 102 H Respiratory Rate 102 H 102 H Respiratory Pattern Normal Blood Pressure 148/79 H 148/79 H Blood Pressure Mean 102 Blood Pressure Source Monitor Blood Pressure Position Semi-Fowlers Blood Pressure Location Left Arm Pulse Ox 100 100 Oxygen Delivery Method Room Air Weight Weight: 185 lb 3.013 oz Body Mass Index (BMI) 28.1 Physical Exam Const oriented x3 and no apparent distress Resp normal respiratory effort Cardio regular rate and regular rhythm GI soft to palpation and non-tender Extremity normal to inspection Assessment & Plan Assessment/Plan (1) Encounter for adjustment and management of vascular access device: PLAN: The patient is here for port placement. I discussed port placement with the patient in detail. I discussed the risks including but not limited to bleeding, infection, pneumothorax, line infection. Patient understands the risks and is willing to proceed. Zack Oates MD Pager: [facility] [address] [place] [address], [address] [place] [address] Office:
[2024-01-14] MEDS: Cefazolin 2 GM in Syringe IV (08:58)
[2024-01-14] MEDS: Bupivacaine Mpf 0.5% 30 ML VIAL (09:22)
[2024-01-14] MEDS: Lidocaine 1% (20 ml mdv) 20 ML Vial (09:22)
--- NOTE | 2024-01-14 09:37 | PCM.POST.ANE ---
Anesthesia: Postop Eval I Current Vital Signs Temperature: 98.2 F Pulse Rate: 101 Blood Pressure: 136/75 Respiratory Rate: 18 Pulse Ox: 100 Assessment Airway patent: Yes Spontaneous unlabored respirations: Yes nausea: No Vomiting: No Anesthesia Complication: No Fluid Hydration Crystalloid volume administer (ml): 10 Total IV fluid infused: 10 Progress Note Anesthesia document: Postop Eval 1 completed: Yes
--- NOTE | 2024-01-14 09:39 | PCM.OPRPT ---
Report of Operation Date of Procedure: 01/14/24 Pre-Operative Diagnosis: Carcinomatosis and need for vascular access for chemotherapy Post-Operative Diagnosis: Same Surgery/Procedure Performed:: Ultrasound and fluoroscopy guided right chest port placement utilizing right IJ Type of Anesthesia: Local MAC Specimen's removed: None Estimated Blood Loss (mL): 10 Description of Procedure: After obtaining informed consent patient was brought back to the operating room MAC anesthesia was induced and the right chest and neck were prepped in normal sterile fashion. Ultrasound was used to evaluate both IJs and the right IJ was selected. Next, using a needle, the right IJ was accessed and a guidewire was passed on into the superior vena cava under fluoroscopy guidance. A small incision was made over the puncture site and the dilator introducer was placed over the guidewire. Next this was capped and the pocket was made for the port. 1% lidocaine with epinephrine was injected in the proposed port site. An incision was made with scalpel. Electrocautery was used to make a pocket under the skin and subcutaneous tissue. Hemostasis was obtained. Next, the catheter was tunneled up to the neck incision site and placed through the introducer. The peel-away introducer was removed and the position of the catheter was confirmed on fluoroscopy. Next, the catheter was trimmed and attached to the port with the locking device. Interrupted 2-0 Vicryl sutures were used to anchor the port to the chest wall and then the port was placed inside the pocket. The pocket was then flushed with saline and the port irrigated with saline. There was good blood return and the port flushed easily. Next, heparin was injected into the port. The skin was closed with subcutaneous interrupted 3-0 Vicryl sutures. A single 3-0 Vicryl sutures placed under the skin at the neck incision site. Steri-Strips were placed as well as op sites. Patient tolerated procedure well, was taken to PACU in stable condition. Chest x-ray will be obtained. Grafts/Implants Used: 8 [place] Power[employer] Admit VTE Documentation VTE Mechan Device Prophylaxis: SCD's
--- NOTE | 2024-01-14 09:40 | EX.PCM.DISCH ---
Discharge Instructions Procedure Port-A-Cath Diet Discharge Diet: Light diet - advance as tolerated (Pain medication may cause nausea. You should typically eat light foods as you take your pain medication.) Activity Discharge Activity: Return to Normal Activity and May Shower (with your bandage in place in 1-2 days after surgery. DO NOT SHOWER WHEN YOUR PORT IS ACCESSED.) Dressing / Incision Call your doctor if your incision/area has: Continuous Slow Oozing, Sudden Increased Bleeding, Increased Pain/ Swelling, Increased Redness and Foul Smelling Discharge Call your doctor if you observe: Fever of 101 or Higher Remove Dressing in: 2 days Cleanse incision/area with: Soap & Water Additional Dressing/Incision Instructions:: Resume Eliquis Thursday. Alternate ibuprofen and Tylenol for pain control Follow Up Care Please Follow Up With: Zack Oates MD When: as needed [phone] Test Results: Test results from this visit will be discussed in further detail at your follow-up appointment, if applicable. Discharge Plan Admission Attending Provider: Zack Oates Primary Care Provider: Enedina Chaudhary Instructions Print Language: Tanzanian Discharge Orders/Prescriptions Prescriptions: No Action amlodipine 5 mg tablet 5 mg PO QHS lisinopril 20 mg tablet 20 mg PO QHS hydrocortisone [Procto-Med HC] 2.5 % cream with perineal applicator 1 applic topical Q6H PRN (Reason: hemorrhoids) multivitamin Tablet 1 tab PO DAILY acetaminophen [Tylenol Arthritis Pain] 650 mg tablet extended release 650 mg PO Q8H PRN (Reason: pain) prochlorperazine maleate 10 mg tablet 10 mg PO Q6H PRN (Reason: nausea and vomiting) Qty: 30 2RF ondansetron 8 mg tablet,disintegrating 8 mg PO Q8H PRN (Reason: nausea and vomiting) Qty: 30 2RF lidocaine-prilocaine 2.5-2.5 % cream 1 applic topical ONCE PRN (Reason: port access) 30 Days Qty: 30 2RF Eliquis 5 mg tablet 5 mg PO BID Qty: 74 0RF Rx Instructions: Take 10 mg (2 tablets) twice daily x 7 days then transition to 5 mg (1 tablet) twice daily thereafter. Referrals / Follow Up: Enedina Chaudhary MD [Primary Care Provider] - Disposition Disposition (needs filled in before D/C Order can be placed): Home, Self Care
--- NOTE | 2024-01-14 09:50 | RAD_ITS ---
INDICATION: line placement -- in pacu EXAMINATION/TECHNIQUE: X-RAY - XR Chest 1 View COMPARISON: December 04, 2010 and PET/CT dated December 29, 2023 FINDINGS: LINES/DEVICES: There is a central venous catheter in place terminating within the expected region of the superior vena cava. LUNGS: No consolidation, edema or effusion. No pneumothorax. MEDIASTINUM AND CARDIOVASCULAR STRUCTURES: Cardiac silhouette not enlarged. Central airways and mediastinal contour are unremarkable. BONES AND SOFT TISSUES: Unremarkable. RAD/CXR for Line Placement IMPRESSION: No radiographic evidence of acute cardiopulmonary disease. Electronically Signed: Margi Mcdonald MD at 10:11 EDT ,
--- NOTE | 2024-01-14 10:10 | POSTOPAN2_ITS ---
Anesthesia Postop Eval I Sum Postop Eval Completion status Anesthesia document: Postop Eval 1 completed: Yes Anesthesia Postop Eval I Summary Anesthesia Postop Eval I Summary: Anesthesia Postop Eval I: Assessment Summary Airway patent Yes 01/14/24 09:37 INFECTION CONTROL SPECIALIST.CSIR Spontaneous unlabored Yes 01/14/24 09:37 INFECTION CONTROL SPECIALIST.CSIR respirations Mental status nausea No 01/14/24 09:37 INFECTION CONTROL SPECIALIST.CSIR Vomiting No 01/14/24 09:37 INFECTION CONTROL SPECIALIST.CSIR Anesthesia Postop Eval I: Fluid Summary Crystalloid volume administer 10 01/14/24 09:37 INFECTION CONTROL SPECIALIST.CSIR (ml) Colloids volume administered ( ml) Blood Product volume administered (ml) Total IV fluid infused 10 01/14/24 09:37 INFECTION CONTROL SPECIALIST.CSIR Anesthesia Postop Eval I: Summary Notes Anesthesia Complication No 01/14/24 09:37 INFECTION CONTROL SPECIALIST.CSIR Anesthesia Complication Comment: Post-operative progress note Anesthesia: Postop Eval II Evaluation Mental status: Awake Pain Level: 0 nausea: No Vomiting: No
--- NOTE | 2024-01-14 10:10 | PCM.POSTANE2 ---
Anesthesia Postop Eval I Sum Postop Eval Completion status Anesthesia document: Postop Eval 1 completed: Yes Anesthesia Postop Eval I Summary Anesthesia Postop Eval I Summary: Anesthesia Postop Eval I: Assessment Summary Airway patent Yes 01/14/24 09:37 TEST [email or web address].CSIR Spontaneous unlabored Yes 01/14/24 09:37 TEST TECHNICIAN.CSIR respirations Mental status nausea No 01/14/24 09:37 TEST TECHNICIAN.CSIR Vomiting No 01/14/24 09:37 TEST TECHNICIAN.CSIR Anesthesia Postop Eval I: Fluid Summary Crystalloid volume administer 10 01/14/24 09:37 TEST TECHNICIAN.CSIR (ml) Colloids volume administered ( ml) Blood Product volume administered (ml) Total IV fluid infused 10 01/14/24 09:37 TEST TECHNICIAN.CSIR Anesthesia Postop Eval I: Summary Notes Anesthesia Complication No 01/14/24 09:37 TEST TECHNICIAN.CSIR Anesthesia Complication Comment: Post-operative progress note Anesthesia: Postop Eval II Evaluation Mental status: Awake Pain Level: 0 nausea: No Vomiting: No
== END 2024-01-14 10:38 | disposition home or self-care (01) ==
LOC: SDC 07:21 → AC 07:23
PROVIDERS: PCP Family Medicine; Referring Provider Surgery; Visit Provider Surgery
PROC: (CPT 36561; principal; 2024-01-14 09:00)
DX: Z45.2 Encounter for adjustment and management of vascular access device (principal); C76.2 Malignant neoplasm of abdomen; Z87.891 Personal history of nicotine dependence; E78.5 Hyperlipidemia, unspecified; I10 Essential (primary) hypertension; Z85.46 Personal history of malignant neoplasm of prostate; Z87.19 Personal history of other diseases of the digestive system
CPT/HCPCS: 36561; 71045; 77001; C1788; J2405

== ENCOUNTER → 2024-01-15 | Outpatient (CLI) | payer MEDICARE, OTHER, SELFPAY ==
--- NOTE | 2024-01-15 09:09 | US_ITS ---
EXAM: US Abdomen Limited (quadrant) HISTORY: Abdominal tightness possible paracentesis needed COMPARISON: None Technique: 4 quadrant transplant abdominal ultrasound to evaluate for ascites. FINDINGS: Diffuse anechoic ascites noted in all 4 quadrants of the abdomen. US/Abdomen Limited IMPRESSION: Diffuse ascites present Electronically Signed: James Pina MD at 11:45 EDT ,
== END | disposition home or self-care (01) ==
LOC: US 09:08
PROVIDERS: PCP Family Medicine; Referring Provider Surgery; Visit Provider Surgery
DX: R10.9 Unspecified abdominal pain (principal)
CPT/HCPCS: 76705; A4216

== ENCOUNTER → 2024-04-05 | Outpatient (CLI) | payer MEDICARE, OTHER, SELFPAY ==
--- NOTE | 2024-04-05 08:06 | CT_ITS ---
STUDY: CT CHEST, ABDOMEN T PELVIS WITH CONTRAST REASON FOR EXAM: Male, 73 years old. UNKNOWN PRIMARY CANCER SUSPECT GI RADIATION DOSAGE (If Supplied By Facility): CTDIvol = ( 14.66 ) mGy, DLP = ( 1444.58 ) mGycm TECHNIQUE: Transaxial imaging was performed following intravenous administration of Oral and amp; IV Readi-CAT and amp; 100mL Isovue-300. Individualized dose optimization techniques were used for this CT. The protocol utilizes one or more of the following dose reduction techniques: automated exposure control, adjustment of mA and/or kV according to patient size,and/or use of iterative reconstruction technique. COMPARISON: PET Scan December 29, 2023 FINDINGS: CHEST 14 mm interstitial infiltrate within the lingula. Moderate right pleural effusion appears new. Normal heart and pericardium. Right IJ MediPort terminates in the SVC. Normal mediastinum. Normal hilar regions. Normal unenhanced pulmonary arteries. Normal aorta arch and descending thoracic aorta. Normal osseous structures. ABDOMEN The visualized lung bases are unremarkable. The visualized portions of the heart are within normal limits. Multiple hepatic cysts again noted demonstrating interval enlargement measuring up to 8.2 cm. Extensive ascites and peritoneal carcinomatosis again noted. Normal gallbladder and extrahepatic biliary system. Normal spleen. Normal pancreas. Normal bilateral adrenal glands. Punctate nonobstructing nephroliths bilaterally. Multiple multiple simple bilateral renal cysts. Bilateral simple renal cortical cysts measuring up to 12 mm on the right. No further follow-up required as appears simple/benign. Normal visualized stomach. Oral contrast noted in the small bowel. Contrast noted in the colon. Appendix not identified. Calcified plaque along the aorta and its branches. Normal inferior vena cava. Normal retroperitoneum. Normal abdominal wall. Normal osseous structures. PELVIS Normal urinary bladder. Metallic seeds noted in the prostate. Normal visualized small intestine. Normal visualized colon. There is pelvic fluid. There is no pelvic lymphadenopathy or mass lesion. Normal visualized pelvic arteries. Normal abdominal wall. Normal osseous structures. CT/CT Chest, Abd, Pel w/Contrast IMPRESSION: New infiltrate in the lingula. Recommend follow-up to resolution. Neoplasm not excluded. New moderate right pleural effusion. Moderate ascites and peritoneal carcinomatosis unchanged. Other incidental findings as above. Electronically Signed: Mark Duque MD at 16:38 EST ,
== END | disposition home or self-care (01) ==
LOC: CT 08:06
PROVIDERS: PCP Family Medicine; Referring Provider Internal Medicine Hematology & Oncology; Visit Provider Internal Medicine Hematology & Oncology
DX: C80.1 Malignant (primary) neoplasm, unspecified (principal); C78.6 Secondary malignant neoplasm of retroperitoneum and peritoneum
CPT/HCPCS: 71260; 74177; Q9967; A4216

== ENCOUNTER → 2024-06-29 | Outpatient (CLI) | payer MEDICARE, OTHER, SELFPAY ==
[2024-06-29 07:56] VITALS: BP 136/62; PULSE 93; RESP 18; TEMP 36.3; O2SAT 100
[2024-06-29 08:06] VITALS: BP 139/74; PULSE 86; RESP 18; O2SAT 100
[2024-06-29] MEDS: Lidocaine 2% (20 ml mdv) 20 ML Vial INFILT (08:06)
[2024-06-29 08:15] VITALS: BP 136/72; PULSE 86; RESP 18; O2SAT 100
[2024-06-29 08:30] VITALS: BP 136/66; PULSE 102; RESP 18; O2SAT 98
--- NOTE | 2024-06-29 08:37 | PCM.OPRPT ---
Problems Associated Problem List Diagnoses (1) Malignant ascites: Multi Select Codes Radiology Radiology US Procedures: 66389 Paracentesis Operative Report (Standard) Operative Information Date of Procedure: 06/29/24 Pre-Operative Diagnosis: Ascites Post-Operative Diagnosis: Ascites Surgery/Procedure Performed: Ultrasound-guided paracentesis etl database developer: No Type of Anesthesia: Local Procedure Start Time: 08:00 Procedure Stop Time: 08:33 Select all DRAINS/GRAFTS/IMPLANTS that apply: None Estimated Blood Loss: 0 Specimen collected: No Description of surgery: PROCEDURE: Ultrasound guided paracentesis ORDERING PROVIDER: Yasmine Montaño CNP INDICATION: Male, 73 years old. Ascites. PROVIDER: GLADYS Travis TECHNIQUE: The risks, benefits, and alternatives to the procedure were explained to the patient. The specific risks of bleeding, infection, and damage to bowel were detailed and accepted. The patient is noted to be on reduced dose Eliquis 2.5 mg twice daily. Coagulation studies including PT/INR, aPTT, and platelets were checked 06/28/2024 and were within normal limits. This was discussed with Dr. Oneil, and he was agreeable to proceed as benefit outweighs any potential bleeding risks. Witnessed informed consent was obtained. The abdomen was ultrasonographically surveyed. An appropriate pocket of fluid was identified in the left lower quadrant. The skin was prepped with chlorhexidine and sterile field established. 2% lidocaine was used for local anesthetic. Using ultrasound guidance, the peritoneal cavity was accessed with a 5-Romanian paracentesis needle/catheter system. The trocar was removed. A total of 8000 ml of clear yellow colored fluid was removed from the peritoneal cavity. Additional fluid was noted via ultrasound survey. At the ordering providers discretion, albumin administration may need to be considered in the future given the large volume removed. The catheter was removed and a sterile dressing was applied. The procedure was well tolerated. There were no immediate complications and no evidence of bleeding. The procedure was proctored by interventional radiologist Dr. Oneil. IMPRESSION: Successful ultrasound guided paracentesis with left lower quadrant access site. Surgical Findings: None Complications Complications: No
== END | disposition home or self-care (01) ==
LOC: US 07:33
PROVIDERS: PCP Family Medicine; Referring Provider Nurse Practitioner Family; Visit Provider Nurse Practitioner Family
DX: C80.1 Malignant (primary) neoplasm, unspecified (principal); R18.0 Malignant ascites; C78.6 Secondary malignant neoplasm of retroperitoneum and peritoneum
CPT/HCPCS: 49083

== ENCOUNTER → 2024-07-11 | Outpatient (CLI) | payer MEDICARE, OTHER, SELFPAY ==
--- NOTE | 2024-07-11 12:59 | CT_ITS ---
PROCEDURE: CT CHEST, ABD, PEL W/CONTRAST 07/11/2024 REASON FOR EXAM: CARCINOMA OF UNKNOWN PRIMARY;ASSESS RESPONSE TO TX TECHNIQUE: Chest, abdomen and pelvis CT with intravenous contrast. Coronal and Sagittal reconstruction series were provided. One or more dose reduction techniques were used (e.g., Automated exposure control, adjustment of the mA and/or kV according to patient size, use of iterative reconstruction technique. PATIENT PREPARATION: Per protocol ORAL CONTRAST TYPE: None. CONTRAST: Isovue 370 VOLUME: 98mL RADIATION DOSE SUMMARY: CTDlvol: 15 mGy DLP: 1521.05 mGycm COMPARISON: Comparison is made with prior study dated April 05, 2024. FINDINGS: CT CHEST: Hardware: A right-sided port a catheter is seen with the tip in the superior vena cava. Diffuse heterogeneous enlargement of the thyroid more prominent in the left lobe of the thyroid. There is a substernal extension. Lymph nodes: 9 mm lymph node in the anterior superior mediastinum. Heart and Vasculature: Coronary artery calcifications are noted. Lungs and Airways: Mild degree of increased markings at the lung bases slightly more prominent on the left side suggestive of atelectasis and/or scarring. Pleura: Unremarkable. Bones: Degenerative changes of the thoracic spine. CT ABDOMEN/PELVIS: Diffuse ascites. Liver: Stable multiple cysts once again seen in the liver. Gallbladder: Gallbladder is contracted. Spleen: Normal size. Pancreas: Diffuse fatty atrophy. Adrenals: Focal calcification in the lateral limb of the right adrenal gland. Kidneys: Small bilateral renal cysts. Small bilateral nonobstructive intrarenal calculi. Bladder: Distended urinary bladder. Heterogeneous enlargement of the prostate with evidence of metallic seeds within the prostate. Bowel: Colonic diverticulosis without diverticulitis. Appendix: The appendix is not identified. There is no inflammatory process identified in the right lower quadrant to suggest appendicitis. Lymph nodes: Unremarkable. Vasculature: Mild diffuse atherosclerotic calcifications are noted. Peritoneum / Retroperitoneum: Unremarkable Bones: Degenerative changes of the spine. CT/CT Chest, Abd, Pel w/Contrast IMPRESSION: Diffuse ascites. Sigmoid diverticulosis. Small bilateral renal cysts and nonobstructive bilateral intrarenal calculi. Stable hepatic cysts. Dilated urinary bladder. Heterogeneous enlargement of both lobes of the thyroid. Reading Location: [place] [id number]
[2024-07-11] MEDS: 0.9 % NaCl (Sterile) Posiflush 10 mL IV (13:25)
[2024-07-11] MEDS: 0.9% Saline Lock 10 ML Syringe IV (13:45)
== END | disposition home or self-care (01) ==
LOC: CT 12:56
PROVIDERS: PCP Family Medicine; Referring Provider Nurse Practitioner Family; Visit Provider Nurse Practitioner Family
DX: C80.1 Malignant (primary) neoplasm, unspecified (principal); R97.0 Elevated carcinoembryonic antigen [CEA]
CPT/HCPCS: 71260; 74177; Q9967; A4216

== ENCOUNTER → 2024-08-01 | Outpatient (CLI) | payer MEDICARE, OTHER, SELFPAY ==
--- NOTE | 2024-08-01 08:05 | US_ITS ---
EXAM: Ultrasound-guided paracentesis CLINICAL HISTORY: Recurrent ascites. COMPARISON: None. TECHNIQUE: Ultrasound-guided paracentesis was performed via a left inferior anterior abdominal approach, using standard sterile technique, and following informed consent. 2% lidocaine local anesthesia was followed by placement of a 5 Latvian catheter. Approximately 8.05 L of clear yellow fluid was then successfully removed. No complication was encountered, and the patient left the department in good condition, without significant complaint. US/Paracentesis with US IMPRESSION: Successful paracentesis, with 8.05 L of ascitic fluid successfully removed. Reading Location: [place] [address]
[2024-08-01] MEDS: Lidocaine 2% (20 ml mdv) 20 ML Vial INFILT (08:42)
[2024-08-01 09:17] VITALS: BP 137/72; PULSE 102; RESP 18; O2SAT 100
[2024-08-01 09:20] VITALS: BP 127/67; BP 140/66; PULSE 105; PULSE 92; RESP 18; O2SAT 99
[2024-08-01 09:21] VITALS: BP 122/53; PULSE 97; RESP 18; O2SAT 99
== END | disposition home or self-care (01) ==
LOC: US 08:03
PROVIDERS: PCP Family Medicine; Referring Provider Internal Medicine Hematology & Oncology; Visit Provider Internal Medicine Hematology & Oncology
DX: C78.6 Secondary malignant neoplasm of retroperitoneum and peritoneum (principal); R18.0 Malignant ascites
CPT/HCPCS: 49083

== ENCOUNTER 2024-08-10 18:45 | Emergency (ER) | payer MEDICARE, OTHER, SELFPAY ==
[2024-08-10 18:46] VITALS: BP 123/71; PULSE 91; RESP 16; TEMP 36.6; O2SAT 98; BMI 26.3
--- NOTE | 2024-08-10 19:12 | EX.ED.GENINJ ---
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 Malignant ascites Peritoneal carcinomatosis ETOH abuse Abdominal carcinomatosis History of prostate cancer Obesity HLD (hyperlipidemia) Prostate CA HTN (hypertension) Home Medications ?Medication ?Instructions ?Recorded ?Last Taken ?Type amlodipine 5 mg tablet 5 mg PO QHS 11/26/23 Unknown History hydrocortisone 2.5 % topical cream 1 applic topical Q6H PRN 11/26/23 Unknown History with perineal applicator hemorrhoids (Procto-Med HC) lisinopril 20 mg tablet 20 mg PO QHS 11/26/23 Unknown History multivitamin 1 tab PO DAILY 11/26/23 Unknown History acetaminophen 650 mg 650 mg PO Q8H PRN pain 12/15/23 01/14/24 06:00 History tablet,extended release (Tylenol Arthritis Pain) lidocaine-prilocaine 2.5 %-2.5 % 1 applic topical ONCE PRN port 01/05/24 Unknown Rx topical cream access 30 days #30 grams ondansetron 8 mg disintegrating 8 mg PO Q8H PRN nausea and 01/05/24 Unknown Rx tablet vomiting #30 tabs prochlorperazine maleate 10 mg 10 mg PO Q6H PRN nausea and 01/05/24 Unknown Rx tablet vomiting #30 tabs oxycodone 5 mg tablet 5 mg PO Q6H PRN 01/19/24 Unknown History sennosides 8.6 mg tablet (Senna 8.6 mg PO QDAY 01/19/24 Unknown History Lax) nystatin 100,000 unit/gram topical 1 applic topical TID #30 grams 01/26/24 Unknown Rx powder MAGIC MOUTH WASH (BMX) 180 mL 15 ml PO .Q6HR #180 mL 06/14/24 Unknown Rx suspension apixaban 5 mg tablet (Eliquis) 2.5 mg PO BID PE 06/28/24 Unknown History Allergy/AdvReac Type Severity Reaction Status Date / Time No Known Allergies Allergy Verified 08/10/24 18:46 Family History Mother Cancer Father Prostate cancer Sister Cancer Other Breast cancer Surgical History H/O umbilical hernia repair Social History household members: spouse Smoking Status: Former smoker Tobacco: How many years used: 30 how long ago did patient quit smoking: early alcohol intake: former details: Reports 4 beers or 2-24 ounce beers daily. substance use type: does not use EXAM Physical Exam Const Vital Signs: 08/10/24 18:46 08/10/24 18:59 Temperature 98 F Temperature Source Oral Pulse Rate 91 Respiratory Rate 16 Respiratory Effort Normal Non-Labored Respiratory Pattern Normal Blood Pressure 123/71 H Blood Pressure Mean 88 Pulse Ox 98 Oxygen Delivery Method Room Air MDM MDM MDM Narrative Medical decision making narrative: HISTORY OF PRESENT ILLNESS: Chief complaint: Port dislodgment 73-year-old male history of malignant prostate cancer, hypertension presents with concern for port dislodgment. States he receives chemotherapy through infusion device. He notes today became dislodged from port. Notes he was in the middle of getting a 2-day chemotherapy infusion that ended 18 hours early. REVIEW OF SYSTEMS: Pertinent positives: None Pertinent negatives: Cough, shortness of breath, fever PHYSICAL EXAM: Nursing triage notes reviewed, Vital signs reviewed Constitutional: please see mdm HENT: MMM Eyes: Pupils equal round and reactive to light, Extraocular muscles intact Neck: No stridor, no JVD, full neck ROM Lungs: Clear to auscultation, No wheezing or rales. No increased work of breathing, no conversational dyspnea, no accessory muscle use, no nasal flaring. No respiratory distress noted Heart: Regular rate and rhythm, No murmurs, No rubs and No gallops, 2+ distal pulses (radial, femoral, posterior tibial) in all extremities Abdomen: Soft, there is no tenderness, rigidity, rebound or guarding, no obvious peritoneal signs, no palpable pulsatile abdominal masses, no auscultated abdominal bruit : No CVAT Extremities: No edema Neuro: No new focal neurological deficits, cranial nerves II through XII intact, 5/5 strength in all present extremities. Intact sensation to light touch in all present extremities, 2+ reflexes bilateral patella tendons. Skin: No rash or lesions noted MEDICAL DECISION MAKING: Chief Complaint: please see HPI External records reviewed: Reviewed prior surgery records. Reviewed note from December [address] Medina Walls with a preop diagnosis of carcinomatosis and need for vascular access for chemotherapy. Noted at this time, better place ultrasound and fluoroscopy guided right chest port. Chronic comorbid conditions: Hypertension, chronic back pain most likely degenerative joint disease. Plan: Based on NCCN guidelines and up-to-date review of metastatic adenocarcinoma of unknown primary: 1. Continue systemic chemotherapy that covers the GI and the pancreas namely modified FOLFOX 6. Treatment with a palliative intent plus or minus modest survival benefit. Due to increasing leukopenia and neutropenia added growth factor support following even numbered cycles started with cycle 4. 2. Continue palliative care. 3. Long-term systemic anticoagulation because of malignancy induced hypercoagulability unless a contraindication (bleeding). He will have to stop Eliquis 2 days prior to any invasive procedure including therapeutic paracentesis. He is on systemic anticoagulation at half standard dose due to increased risk for bleeding from a most likely GI primary malignant. 4. Worsening anemia prior to starting chemotherapy due to iron deficiency from suspected chronic GI primary lesion. Received IV iron (already had problems with constipation) and improved. Has residual anemia of cancer and chemotherapy; will transfuse with packed red blood cells for hemoglobin less than 8 g per DL; risks of blood transfusion discussed and the patient gave verbal consent. 5. Elective imaging every 3 months next to schedule September. Factors affecting care: As above Social determinants of health: none History obtained from others: none Consults: Oncology (Dr. Melvin) MDM Narrative: The patient was initially hemodynamically stable, afebrile and nontoxic-appearing. Right chest port appears intact. Obtain x-ray to confirm. Consulted oncology to discuss next steps with the patient's ongoing chemoinfusion I obtained an x-ray to assess the patient's chest port. X-ray showed appropriate port position. I discussed the case with oncology on-call spoke to Dr. Melvin who recommended the patient seal the device and chemotherapy agent in a plastic bag and bring it into the infusion center tomorrow morning The patient and/or family, caregivers express understanding. The patient and/or family, caregivers agrees with the plan. Shared decision making: I will have a discussion with the patient and or visitors regarding risk/benefits of further testing or admission. They will be made aware of of the risk/benefits inherent in this decision they will be given the opportunity to voice understanding. Total critical care time today provided was at least 0 minutes. This excludes separately billable procedures. Critical care time (if documented) is secondary to the patient having high probability of clinically significant/life threatening deterioration in the patient's condition which required my urgent intervention. Impression: 1. Evaluation of chest port Dispo: Discharge This note was generated with [employer] dictation software. It may contain incorrect words, spelling, and punctuation that were not noted in review of the chart prior to signing. Radiography Diagnostic Testing: Clinical Impression(s) from Imaging Studies Chest X-Ray 08/10/24 20:00 IMPRESSION: Left basilar atelectasis or pneumonia. Reading Location: [facility] ER Discharge Plan Triage Chief Complaint: Other, Pain/Inj ED Provider: Matheus Burrell Dx/Rx/DC Orders Prescriptions: No Action amlodipine 5 mg tablet 5 mg PO QHS lisinopril 20 mg tablet 20 mg PO QHS hydrocortisone [Procto-Med HC] 2.5 % cream with perineal applicator 1 applic topical Q6H PRN (Reason: hemorrhoids) multivitamin Tablet 1 tab PO DAILY acetaminophen [Tylenol Arthritis Pain] 650 mg tablet extended release 650 mg PO Q8H PRN (Reason: pain) prochlorperazine maleate 10 mg tablet 10 mg PO Q6H PRN (Reason: nausea and vomiting) Qty: 30 2RF ondansetron 8 mg tablet,disintegrating 8 mg PO Q8H PRN (Reason: nausea and vomiting) Qty: 30 2RF lidocaine-prilocaine 2.5-2.5 % cream 1 applic topical ONCE PRN (Reason: port access) 30 Days Qty: 30 2RF sennosides [Senna Lax] 8.6 mg tablet 8.6 mg PO QDAY oxycodone 5 mg tablet 5 mg PO Q6H PRN nystatin 100,000 unit/gram powder 1 applic topical TID Qty: 30 3RF MAGIC MOUTH WASH (BMX) 180 mL suspension 15 ml PO .Q6HR Qty: 180 5RF Rx Instructions: diphenhydramine 12.5 mg/5 mL oral liquid 60 mL; aluminum-mag hydroxide-simethicone 400 mg-400 mg-40 mg/5 mL oral susp 60 mL; Lidocaine Viscous 2 % mucosal solution 60 mL; Per 180 mL Eliquis 5 mg tablet 2.5 mg PO BID Primary Care Provider: Enedina Chaudhary Referrals: Enedina Chaudhary MD [Primary Care Provider] - Activity Restrictions/Additional Instructions: Thank you for trusting us with your care today! Please take Tylenol (2 pills, 650 mg), ibuprofen (2 pills, 400 mg) every 6 hours as needed for pain and fever control. Please return to the emergency department if your symptoms change or worsen. I spoke with Dr. Melvin (one of your oncologist colleagues). He instructed you to follow-up at the oncology clinic tomorrow morning. He instructed you to place infusion therapy and device in a plastic bag and bring it into the clinic tomorrow. Please follow with oncology clinic tomorrow morning. Print Language: Welsh Disposition Disposition: Home, Self Care
--- NOTE | 2024-08-10 20:00 | RAD_ITS ---
EXAM: XR Chest, 1 View CLINICAL INDICATION: PORT PLACEMENT TECHNIQUE: Frontal view of the chest. COMPARISON: XR Chest dated 01/14/2024 FINDINGS: LUNGS AND PLEURAL SPACES: Left basilar atelectasis or pneumonia. HEART: Unremarkable. No cardiomegaly. MEDIASTINUM: Unremarkable. Normal mediastinal contour. BONES/JOINTS: Unremarkable. No acute fracture. TUBES, LINES AND DEVICES: Right-sided Mediport with the distal tip in the SVC. No pneumothorax. RAD/Chest 1 View (Portable) IMPRESSION: Left basilar atelectasis or pneumonia. Reading Location: [facility]
[2024-08-10 20:57] VITALS: BP 123/70; PULSE 73; RESP 18; TEMP 36.6; O2SAT 100
== END 2024-08-10 20:58 | disposition home or self-care (01) ==
PROVIDERS: Emergency Provider Emergency Medicine; PCP Family Medicine; Visit Provider Emergency Medicine
DX: Z45.2 Encounter for adjustment and management of vascular access device (principal); I10 Essential (primary) hypertension; E78.5 Hyperlipidemia, unspecified; Z87.891 Personal history of nicotine dependence; Z85.46 Personal history of malignant neoplasm of prostate; Z85.89 Personal history of malignant neoplasm of other organs and systems; Z79.899 Other long term (current) drug therapy
CPT/HCPCS: 71045; 99282

== ENCOUNTER 2024-08-18 08:10 | Outpatient (CLI) | payer MEDICARE, OTHER, SELFPAY ==
--- NOTE | 2024-08-18 08:15 | US_ITS ---
PROCEDURE: PARACENTESIS WITH US 08/18/2024 REASON FOR EXAM: MALIGNANT ASCITES TECHNIQUE: The procedure as well as the benefits and possible complications including infection and bleeding were explained to the patient. Informed consent was obtained. The overlying skin was prepped and draped in the usual sterile fashion. Following local anesthetic application, a 5 Mohawk drainage catheter was placed into the left lower quadrant. 7150 mL of clear kalee colored fluid aspirated. COMPARISON: Prior study dated August 01, 2024. FINDINGS: Successful ultrasound-guided left paracentesis. US/Paracentesis with US IMPRESSION: Successful ultrasound-guided left paracentesis. Reading Location: [place] [address]
[2024-08-18 08:32] VITALS: BP 134/78; PULSE 82; RESP 18; TEMP 36.6; O2SAT 99
[2024-08-18] MEDS: Lidocaine 2% (20 ml mdv) 20 ML Vial INFILT (08:36)
[2024-08-18 08:38] VITALS: BP 134/72; PULSE 85; RESP 18; O2SAT 100
[2024-08-18 08:45] VITALS: BP 131/77; PULSE 85; RESP 18; O2SAT 100
[2024-08-18 09:00] VITALS: BP 127/62; PULSE 73; RESP 18; O2SAT 99
[2024-08-18 09:03] VITALS: BP 118/68; PULSE 82; RESP 18; O2SAT 100
--- NOTE | 2024-08-18 09:22 | OP.PCM_ITS ---
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 aOtes INDICATION: Male, 73 years old. Ascites. PROVIDER: GLADYS Travis TECHNIQUE: The risks, benefits, and alternatives to the procedure were explained to the patient. The specific risks of bleeding, infection, and damage to bowel were detailed and accepted. Witnessed informed consent was obtained. The abdomen was ultrasonographically surveyed. An appropriate pocket of fluid was identified in the left lower quadrant of the abdomen. The skin was prepped with chlorhexidine and sterile field established. 2% lidocaine was used for local anesthetic. Using ultrasound guidance, the peritoneal cavity was accessed with a 5-Ukrainian paracentesis needle/catheter system. The trocar was removed. A total of 7150 ml of clear yellow colored fluid was removed from the peritoneal cavity. The catheter was removed and a sterile dressing was applied. The procedure was well tolerated. There were no immediate complications. The procedure was proctored by interventional radiologist Dr. Oneil. IMPRESSION: Successful ultrasound guided paracentesis with left lower quadrant access site. Surgical Findings: None Complications Complications: No
== END 2024-08-18 23:59 | disposition home or self-care (01) ==
LOC: US 08:11
PROVIDERS: PCP Family Medicine; Referring Provider Surgery; Visit Provider Surgery
DX: C78.6 Secondary malignant neoplasm of retroperitoneum and peritoneum (principal); R18.0 Malignant ascites
CPT/HCPCS: 49083

== ENCOUNTER → 2024-09-07 | Outpatient (CLI) | payer MEDICARE, OTHER, SELFPAY ==
[2024-09-07 09:00] VITALS: BP 123/88; PULSE 77; RESP 16; O2SAT 98
[2024-09-07] MEDS: Lidocaine 2% (20 ml mdv) 20 ML Vial INFILT (09:07)
[2024-09-07 09:15] VITALS: BP 147/68; PULSE 83; RESP 16; O2SAT 99
[2024-09-07 09:30] VITALS: BP 121/65; PULSE 82; RESP 16; O2SAT 99
[2024-09-07 09:38] VITALS: BP 111/69; PULSE 81; RESP 16; O2SAT 98
--- NOTE | 2024-09-07 09:54 | OP.PCM_ITS ---
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 Kramer INDICATION: Male, 73 years old. Ascites. PROVIDER: GLADYS Travis TECHNIQUE: The risks, benefits, and alternatives to the procedure were explained to the patient. The specific risks of bleeding, infection, and damage to bowel were detailed and accepted. Witnessed informed consent was obtained. The abdomen was ultrasonographically surveyed. An appropriate pocket of fluid was identified in the left lower quadrant of the abdomen. The skin was prepped with chlorhexidine and sterile field established. 2% lidocaine was used for local anesthetic. Using ultrasound guidance, the peritoneal cavity was accessed with a 5-Kinyarwanda paracentesis needle/catheter system. The trocar was removed. A total of 8000 ml of clear yellow colored fluid was removed from the peritoneal cavity. The catheter was removed and a sterile dressing was applied. The procedure was well tolerated. There were no immediate complications. The procedure was proctored by interventional radiologist Dr. Oneil. IMPRESSION: Successful ultrasound guided paracentesis with left lower quadrant access site. Surgical Findings: None Complications Complications: No
== END | disposition home or self-care (01) ==
LOC: US 08:10
PROVIDERS: PCP Family Medicine; Referring Provider Internal Medicine Hematology & Oncology; Visit Provider Internal Medicine Hematology & Oncology
DX: C78.6 Secondary malignant neoplasm of retroperitoneum and peritoneum (principal); R18.0 Malignant ascites
CPT/HCPCS: 49083

== ENCOUNTER 2024-10-06 08:11 | Outpatient (CLI) | payer MEDICARE, OTHER, SELFPAY ==
--- NOTE | 2024-10-06 08:14 | US_ITS ---
PROCEDURE: PARACENTESIS WITH US 10/06/2024 REASON FOR EXAM: MALIGNANT ASCITES TECHNIQUE: PARACENTESIS WITH US. The patient was in the supine position. The overlying skin in the left lower quadrant was prepped and draped in the usual sterile fashion. Following local anesthetic application, a 5 Kiswahili drainage catheter was placed into the left lower quadrant. A 1550 kalee colored fluid was aspirated. The patient did well. COMPARISON: Prior study dated August 18, 2024 FINDINGS: Successful paracentesis with removal of 8550 mL of kalee colored fluid. US/Paracentesis with US IMPRESSION: Successful paracentesis in the left lower quadrant with removal of 8550 mL of a mber colored fluid. Reading Location: [facility]
[2024-10-06 08:41] VITALS: BP 126/66; PULSE 87; RESP 16; TEMP 36.4; O2SAT 99
[2024-10-06 08:44] VITALS: BP 128/71; PULSE 92; RESP 16; O2SAT 99
[2024-10-06] MEDS: Lidocaine 2% (20 ml mdv) 20 ML Vial INFILT (08:47)
[2024-10-06 09:00] VITALS: BP 122/73; PULSE 88; RESP 16; O2SAT 98
[2024-10-06 09:08] VITALS: BP 124/64; PULSE 95; RESP 16; O2SAT 99
[2024-10-06 09:15] VITALS: BP 130/66; PULSE 96; RESP 16; O2SAT 97
[2024-10-06 09:26] VITALS: BP 122/52; PULSE 98; RESP 17; O2SAT 99
== END 2024-10-06 23:59 | disposition home or self-care (01) ==
LOC: US 08:12
PROVIDERS: PCP Family Medicine; Referring Provider Internal Medicine Hematology & Oncology; Visit Provider Internal Medicine Hematology & Oncology
DX: C78.6 Secondary malignant neoplasm of retroperitoneum and peritoneum (principal); R18.0 Malignant ascites
CPT/HCPCS: 49083

== ENCOUNTER → 2024-11-02 | Outpatient (CLI) | payer MEDICARE, OTHER, SELFPAY ==
--- NOTE | 2024-11-02 13:39 | CT_ITS ---
PROCEDURE: CT CHEST, ABD, PEL W/CONTRAST 11/02/2024 REASON FOR EXAM: F/U METS CANCER UNKNOWN PRIMARY TECHNIQUE: Chest, abdomen and pelvis CT with intravenous contrast. Coronal and Sagittal reconstruction series were provided. One or more dose reduction techniques were used (e.g., Automated exposure control, adjustment of the mA and/or kV according to patient size, use of iterative reconstruction technique. PATIENT PREPARATION: Per protocol ORAL CONTRAST TYPE: Patient ingested oral contrast. CONTRAST: Isovue-300 50 VOLUME: 100mL gauge IV RADIATION DOSE SUMMARY: CTDlvol: 18.9 mGy DLP: 1385 mGycm COMPARISON: CT scan on 07/11/2024. FINDINGS: CT CHEST: Hardware: A right-sided port a catheter is seen with the tip in the superior vena cava. Diffuse heterogeneous enlargement of the thyroid more prominent in the left lobe of the thyroid. There is a substernal extension, unchanged. Lymph nodes: Mild increase in the size and number of the previously described enlarged mediastinal lymph nodes. 9 mm lymph node in the anterior superior mediastinum measures 11 mm on the current exam. Heart and Vasculature: Coronary artery calcifications are noted. Lungs and Airways: Mild degree of increased markings at the lung bases slightly more prominent on the left side suggestive of atelectasis and/or scarring. Interval appearance of bilateral basilar atelectatic pulmonary changes. Pleura: Interval appearance of mild bilateral pleural effusions. Bones: Degenerative changes of the thoracic spine. CT ABDOMEN/PELVIS: Liver: Stable multiple cysts once again seen in the liver. Gallbladder: Gallbladder is distended without CT evidence of acute cholecystitis. Spleen: Normal size. Pancreas: Diffuse fatty atrophy. Adrenals: Focal calcification in the lateral limb of the right adrenal gland, unchanged. Kidneys: Small bilateral renal cysts. Small bilateral nonobstructive intrarenal calculi, unchanged. Bladder: Under distended urinary bladder. Unchanged diffuse thickening of the wall of the bladder. Heterogeneous enlargement of the prostate with evidence of metallic seeds within the prostate. Bowel: Colonic diverticulosis without diverticulitis. Appendix: The appendix is not identified. There is no inflammatory process identified in the right lower quadrant to suggest appendicitis. Lymph nodes: Unremarkable. Vasculature: Mild diffuse atherosclerotic calcifications are noted. Peritoneum / Retroperitoneum: Large ascites has mildly increased. Increased diffuse peritoneal nodularity, caking and omental masses, probably carcinomatosis that has progressed. Bones: Degenerative changes of the spine. Mild diffuse spondylosis. CT/CT Chest, Abd, Pel w/Contrast IMPRESSION: Disease progression. Large ascites, mildly increased. Increased omental nodularity, thickening and omental masses suggestive of diffu se peritoneal carcinomatosis that has increased. Diffuse colonic diverticulosis. Interval appearance of mild thickening of the sigmoid colon, probably underdist ention/spasm versus mild inflammatory pathology. Diffuse thickening of the underdistended bladder. Heterogeneous enlargement of the thyroid gland. Mild increase in the size and number of the previously described mediastinal ly mph nodes. [facility]
[2024-11-02] MEDS: 0.9% Saline Lock 10 ML Syringe IV (14:01)
== END | disposition home or self-care (01) ==
LOC: CT 13:35
PROVIDERS: PCP Family Medicine; Referring Provider Internal Medicine Hematology & Oncology; Visit Provider Internal Medicine Hematology & Oncology
DX: C80.1 Malignant (primary) neoplasm, unspecified (principal); C78.6 Secondary malignant neoplasm of retroperitoneum and peritoneum
CPT/HCPCS: 71260; 74177; Q9967; A4216

== ENCOUNTER 2024-11-10 08:11 | Outpatient (CLI) | payer MEDICARE, OTHER, SELFPAY ==
--- NOTE | 2024-11-10 08:16 | US_ITS ---
PROCEDURE: PARACENTESIS WITH US 11/10/2024 REASON FOR EXAM: MALIGNANT ASCITES TECHNIQUE: PARACENTESIS WITH US The procedure as well as the benefits and possible complications including infection and bleeding were explained to the patient. Informed consent was obtained. The skin overlying the left lower quadrant was prepped and draped in usual sterile fashion. Following local anesthetic application, a 5 Monegasque catheter was placed into the ascitic fluid. 9050 mL of kalee colored fluid was aspirated. The patient tolerated the procedure well. COMPARISON: Prior study dated October 06, 2024. FINDINGS: Successful ultrasound-guided paracentesis. US/Paracentesis with US IMPRESSION: Successful ultrasound-guided paracentesis. [facility]
[2024-11-10] MEDS: Lidocaine 2% (20 ml mdv) 20 ML Vial INFILT (08:37)
[2024-11-10 09:12] VITALS: BP 119/74; PULSE 80; RESP 18; O2SAT 97
[2024-11-10 09:13] VITALS: BP 137/74; PULSE 91; RESP 18; O2SAT 98
[2024-11-10 09:14] VITALS: BP 139/71; PULSE 84; RESP 18; O2SAT 95
== END 2024-11-10 23:59 | disposition home or self-care (01) ==
LOC: US 08:12
PROVIDERS: PCP Family Medicine; Referring Provider Internal Medicine Hematology & Oncology; Visit Provider Internal Medicine Hematology & Oncology
DX: C78.6 Secondary malignant neoplasm of retroperitoneum and peritoneum (principal); R18.0 Malignant ascites
CPT/HCPCS: 49083

== ENCOUNTER 2024-12-02 08:23 | Outpatient (CLI) | payer MEDICARE, OTHER, SELFPAY ==
[2024-12-02] MEDS: Lidocaine 2% (20 ml mdv) 20 ML Vial INFILT (08:44)
[2024-12-02 09:20] VITALS: BP 136/78; PULSE 95; RESP 18; TEMP 36.2; O2SAT 96
[2024-12-02 09:21] VITALS: BP 139/73; BP 143/71; PULSE 92; PULSE 94; RESP 18; O2SAT 96; O2SAT 97
--- NOTE | 2024-12-02 09:34 | OP.PCM_ITS ---
Problems Associated Problem List Diagnoses (1) Malignant ascites: Multi Select Codes Radiology Radiology US Procedures: 18043 Paracentesis Operative Report (Standard) Operative Information Date of Procedure: 12/02/24 Pre-Operative Diagnosis: Malignant ascites Post-Operative Diagnosis: Malignant ascites Surgery/Procedure Performed: Ultrasound-guided paracentesis footwear sales leader: No Type of Anesthesia: Local Procedure Start Time: 08:40 Procedure Stop Time: 09:13 Select all DRAINS/GRAFTS/IMPLANTS that apply: None Estimated Blood Loss: 0 Specimen collected: No Description of surgery: PROCEDURE: Ultrasound guided paracentesis ORDERING PROVIDER: Dr. Kramer INDICATION: Male, 74 years old. Malignant ascites. PROVIDER: GLADYS Travis TECHNIQUE: The risks, benefits, and alternatives to the procedure were explained to the patient. The specific risks of bleeding, infection, and damage to bowel were detailed and accepted. Witnessed informed consent was obtained. The abdomen was ultrasonographically surveyed. An appropriate pocket of fluid was identified in the right upper quadrant of the abdomen. The skin was prepped with chlorhexidine and sterile field established. 2% lidocaine was used for local anesthetic. Using ultrasound guidance, the peritoneal cavity was accessed with a 5-Cuban paracentesis needle/catheter system. The trocar was removed. A total of 8400 ml of clear yellow colored fluid was removed from the peritoneal cavity. The catheter was removed and a sterile dressing was applied. The procedure was well tolerated without any immediate complications. IMPRESSION: Successful ultrasound guided paracentesis with right upper quadrant access site. Surgical Findings: None Complications Complications: No
== END 2024-12-02 23:59 | disposition home or self-care (01) ==
LOC: US 08:25
PROVIDERS: PCP Family Medicine; Referring Provider Internal Medicine Hematology & Oncology; Visit Provider Internal Medicine Hematology & Oncology
DX: R91.1 Solitary pulmonary nodule (principal); R18.0 Malignant ascites
CPT/HCPCS: 49083

== ENCOUNTER → 2024-12-27 | Outpatient (CLI) | payer MEDICARE, OTHER, SELFPAY ==
[2024-12-27] MEDS: Lidocaine 2% (20 ml mdv) 20 ML Vial INFILT (08:27)
--- NOTE | 2024-12-27 08:51 | PCM.OPRPT ---
Procedures Radiology Radiology US Procedures: [id number] Paracentesis Operative Report (Standard) Operative Information Date of Procedure: 12/27/24 Pre-Operative Diagnosis: Malignant ascites Post-Operative Diagnosis: Malignant ascites Surgery/Procedure Performed: Ultrasound-guided paracentesis sales representative consultant: No Type of Anesthesia: Local Procedure Start Time: 08:18 Procedure Stop Time: 08:45 Select all DRAINS/GRAFTS/IMPLANTS that apply: None Estimated Blood Loss: 0 Specimen collected: No Description of surgery: PROCEDURE: Ultrasound guided paracentesis ORDERING PROVIDER: Dr. Kramer INDICATION: Male, 74 years old. Malignant ascites. PROVIDER: GLADYS Travis TECHNIQUE: The risks, benefits, and alternatives to the procedure were explained to the patient. The specific risks of bleeding, infection, and damage to bowel were detailed and accepted. Witnessed informed consent was obtained. The abdomen was ultrasonographically surveyed. An appropriate pocket of fluid was identified in the right upper quadrant. The skin was prepped with chlorhexidine and sterile field established. 2% lidocaine was used for local anesthetic. Using ultrasound guidance, the peritoneal cavity was accessed with a 5-Algerian paracentesis needle/catheter system. The trocar was removed. A total of 6300 ml of clear yellow colored fluid was removed from the peritoneal cavity. The catheter was removed and a sterile dressing was applied. Patient stated the large volume typically removed (usually ~8000?9000 mL) is not always well-tolerated and he experiences subsequent shortness of breath. He is unsure if his symptoms are related to the procedure or the many other potential contributing factors, but after discussion, it was mutually agreed upon to remove a smaller volume today. He is follow up with palliative care and oncology. Post-procedure ultrasound revealed only a small volume of residual ascites. The procedure was well tolerated without any immediate complications. IMPRESSION: Successful ultrasound guided paracentesis with right upper quadrant access site. Surgical Findings: None Complications Complications: No
--- NOTE | 2024-12-27 08:51 | PCM.OPRPT ---
Procedures Radiology Radiology US Procedures: 37523 Paracentesis Operative Report (Standard) Operative Information Date of Procedure: 12/27/24 Pre-Operative Diagnosis: Malignant ascites Post-Operative Diagnosis: Malignant ascites Surgery/Procedure Performed: Ultrasound-guided paracentesis superintendent drilling and production: No Type of Anesthesia: Local Procedure Start Time: 08:18 Procedure Stop Time: 08:45 Select all DRAINS/GRAFTS/IMPLANTS that apply: None Estimated Blood Loss: 0 Specimen collected: No Description of surgery: PROCEDURE: Ultrasound guided paracentesis ORDERING PROVIDER: Dr. Kramer INDICATION: Male, 74 years old. Malignant ascites. PROVIDER: GLADYS Travis TECHNIQUE: The risks, benefits, and alternatives to the procedure were explained to the patient. The specific risks of bleeding, infection, and damage to bowel were detailed and accepted. Witnessed informed consent was obtained. The abdomen was ultrasonographically surveyed. An appropriate pocket of fluid was identified in the right upper quadrant. The skin was prepped with chlorhexidine and sterile field established. 2% lidocaine was used for local anesthetic. Using ultrasound guidance, the peritoneal cavity was accessed with a 5-Senegalese paracentesis needle/catheter system. The trocar was removed. A total of 6300 ml of clear yellow colored fluid was removed from the peritoneal cavity. The catheter was removed and a sterile dressing was applied. Patient stated the large volume typically removed (usually ~8000?9000 mL) is not always well-tolerated and he experiences subsequent shortness of breath. He is unsure if his symptoms are related to the procedure or the many other potential contributing factors, but after discussion, it was mutually agreed upon to remove a smaller volume today. He is follow up with palliative care and oncology. Post-procedure ultrasound revealed only a small volume of residual ascites. The procedure was well tolerated without any immediate complications. IMPRESSION: Successful ultrasound guided paracentesis with right upper quadrant access site. Surgical Findings: None Complications Complications: No
[2024-12-27 09:00] VITALS: BP 138/81; BP 141/85; PULSE 101; PULSE 102; RESP 18; O2SAT 93; O2SAT 95
[2024-12-27 09:01] VITALS: BP 106/76; PULSE 95; RESP 18; O2SAT 94
== END | disposition home or self-care (01) ==
LOC: US 07:53
PROVIDERS: PCP Family Medicine; Referring Provider Internal Medicine Hematology & Oncology; Visit Provider Internal Medicine Hematology & Oncology
DX: R91.1 Solitary pulmonary nodule (principal); R18.0 Malignant ascites
CPT/HCPCS: 49083

== ENCOUNTER 2025-01-06 12:12 | Emergency (ER) | payer MEDICARE, OTHER, SELFPAY ==
[2025-01-06] VITALS (15 sets, daily range): BP systolic 98–135; BP diastolic 64–100; PULSE 101–160; RESP 20–27; TEMP 36.5; O2SAT 87–95; BMI 23.6
--- NOTE | 2025-01-06 12:36 | ED.VIS.DYS ---
HPI History of Present Illness Chief Complaint: Shortness of Breath Narrative Narrative: Patient is a 74-year-old male presenting to the emergency department for shortness of breath for 4 weeks. 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 Patient is on eliquis, reports being intermittently compliant. Reports last dose either last night or this morning, patient is unsure. States that for the past 4 weeks he has had progressive shortness of breath. States that he can only walk a few steps before feeling out of breath. He denies fever, chills, chest pain, abdominal pain, nausea, vomiting, diarrhea. Reports a dry cough that is new. Reports about 4 weeks ago he also developed bilateral lower extremity edema. Of note, patient has paracentesis outpatient, last had one 12/27. 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 Malignant ascites Peritoneal carcinomatosis ETOH abuse Abdominal carcinomatosis History of prostate cancer Obesity HLD (hyperlipidemia) Prostate CA HTN (hypertension) Home Medications ?Medication ?Instructions ?Recorded ?Last Taken ?Type amlodipine 5 mg tablet 5 mg PO QHS 11/26/23 Unknown History hydrocortisone 2.5 % topical cream 1 applic topical Q6H PRN 11/26/23 Unknown History with perineal applicator hemorrhoids (Procto-Med HC) lisinopril 20 mg tablet 20 mg PO QHS 11/26/23 Unknown History multivitamin 1 tab PO DAILY 11/26/23 Unknown History acetaminophen 650 mg 650 mg PO Q8H PRN pain 12/15/23 01/14/24 06:00 History tablet,extended release (Tylenol Arthritis Pain) lidocaine-prilocaine 2.5 %-2.5 % 1 applic topical ONCE PRN port 01/05/24 Unknown Rx topical cream access 30 days #30 grams ondansetron 8 mg disintegrating 8 mg PO Q8H PRN nausea and 01/05/24 Unknown Rx tablet vomiting #30 tabs prochlorperazine maleate 10 mg 10 mg PO Q6H PRN nausea and 01/05/24 Unknown Rx tablet vomiting #30 tabs oxycodone 5 mg tablet 5 mg PO Q6H PRN 01/19/24 Unknown History sennosides 8.6 mg tablet (Senna 8.6 mg PO QDAY 01/19/24 Unknown History Lax) apixaban 5 mg tablet (Eliquis) 2.5 mg PO BID PE 06/28/24 09/04/24 History nystatin 100,000 unit/gram topical 1 applic topical TID PRN 09/12/24 Unknown History powder Allergy/AdvReac Type Severity Reaction Status Date / Time No Known Allergies Allergy Verified 01/06/25 12:12 Family History Mother Cancer Father Prostate cancer Sister Cancer Other Breast cancer Surgical History H/O umbilical hernia repair Social History household members: spouse Smoking Status: Former smoker Tobacco: How many years used: 30 how long ago did patient quit smoking: early alcohol intake: former details: Reports 4 beers or 2-24 ounce beers daily. substance use type: does not use ROS ROS ED ROS Narrative See HPI EXAM Physical Exam Narrative Exam Narrative: Vital signs: Reviewed General: Alert and oriented x 3. No acute distress HEENT: Head is normocephalic and atraumatic, sinuses nontender, pupils equal round and reactive. Nares are patent. Oropharynx and throat exams normal. Neck: Supple without lymphadenopathy nontender Cardiovascular: Irregularly irregular rate and rhythm, no murmurs. No rubs or gallops. Normal S1 and S2 Respiratory: Expiratory wheezing noted in all lung vance. No rhonchi or rales heard. Abdominal: Soft and protuberant. Nontender to palpation. Normal bowel sounds. No guarding or rebound. Nonsurgical abdomen Extremities: Symmetric bilateral lower extremity edema. No tenderness to palpation of the posterior calves. No erythema. No bruising. Normal range of motion. Normal sensation. Skin: No rash or redness. Neurological: Cranial nerves II through XII are grossly intact. Normal strength and sensation. Normal cerebellar function The rest of the physical exam is unremarkable Const Vital Signs: 01/06/25 12:12 01/06/25 12:14 01/06/25 12:26 Temperature 97.7 F L 97.7 F L Temperature Source Oral Oral Pulse Rate 109 H 109 H Respiratory Rate 22 H 22 H Respiratory Effort Short of Breath Respiratory Pattern Blood Pressure 122/100 H 122/100 H Blood Pressure Mean 107 107 Pulse Ox 93 93 Oxygen Delivery Method Room Air Room Air Room Air Oxygen Flow Rate (L/min) 01/06/25 13:12 01/06/25 13:14 01/06/25 13:23 Temperature 97.7 F L Temperature Source Oral Pulse Rate 101 H 120 H Respiratory Rate 20 H 20 H Respiratory Effort Respiratory Pattern Tachypnea Blood Pressure 127/69 H 127/69 H Blood Pressure Mean 88 88 Pulse Ox 93 Oxygen Delivery Method Room Air Oxygen Flow Rate (L/min) 01/06/25 13:32 01/06/25 14:00 01/06/25 14:00 Temperature 97.7 F L Temperature Source Oral Pulse Rate 108 H 108 H Respiratory Rate 27 H Respiratory Effort Respiratory Pattern Blood Pressure 122/72 H 122/72 H Blood Pressure Mean 88 88 Pulse Ox 95 Oxygen Delivery Method Room Air Room Air Oxygen Flow Rate (L/min) 01/06/25 15:00 01/06/25 15:00 01/06/25 15:50 Temperature 97.7 F L Temperature Source Oral Pulse Rate 116 H Respiratory Rate 23 H Respiratory Effort Respiratory Pattern Blood Pressure 112/80 112/80 Blood Pressure Mean 90 90 Pulse Ox 94 87 Oxygen Delivery Method Room Air Room Air Oxygen Flow Rate (L/min) 01/06/25 15:52 01/06/25 16:00 Temperature Temperature Source Pulse Rate 109 H Respiratory Rate 26 H Respiratory Effort Respiratory Pattern Blood Pressure 121/77 H Blood Pressure Mean 91 Pulse Ox 93 93 Oxygen Delivery Method Nasal Cannula Nasal Cannula Oxygen Flow Rate (L/min) 2 2 MDM MDM MDM Narrative Medical decision making narrative: Patient is a 74-year-old male presenting to the emergency department for dyspnea for 4 weeks. Patient was seen and examined. Vitals are stable however he is tachycardic peers to be in A-fib on the monitor between 100 and 130. He is tachypneic and speaking in short sentences. He is afebrile saturating 93% on room air. Differential includes but is not limited to: PE, new CHF, pneumonia, pleural effusions, COPD, viral Patient given DuoNeb breathing treatments with the wheezing to see if this would help with his dyspnea. With his active cancer and prior PE and being intermittently compliant with his Eliquis he is at risk for a pulmonary embolism. CTA of the chest was ordered. CBC with a mild leukocytosis of 12.6 and a normal hemoglobin. CMP with bicarb of 20.5, mild elevation in BUN at 55. Lactate within normal limits. Mild transaminitis which is present on prior labs. Troponin initial of 41, reflex of 34. Normal BNP of 72. EKG shows sinus tachycardia at a rate of 111. No ST elevation or depression noted. Poor baseline. VBG with no evidence of respiratory acidosis. I reviewed the CTA of the chest there is evidence of a large right-sided pleural effusion as well as a moderate-sized left-sided pleural effusion. There is no evidence of a pulmonary embolism. Waiting on radiology read at this time. I did discuss with the patient that he will need to be transferred for higher level of care. Patient is currently on Eliquis and will need a washout period before having bilateral thoracentesis done. Patient is due for a paracentesis in the next few days. He did not have any abdominal pain on exam. I do not think he needed CT imaging of his abdomen for any acute intra-abdominal pathology. He has no abdominal pain or fever to be concerned about SBP. I discussed the patient for transfer with both [facility] and [facility] transfer centers. I did speak to hospitalist at [facility], Dr. Watts, who accepted the patient for transfer however they may not have a bed tonight. Clinical impression Dyspnea Bilateral pleural effusions History & Record Review Discussion w/independent historian: Patient Additional record(s) reviewed:: Prior labs Lab Data Attestation: I reviewed the patient's lab results. Labs: Laboratory Results - last 24 hr 01/06/25 01/06/25 13:20 15:18 WBC 12.6 H RBC 4.79 Hgb 13.9 Hct 42.6 MCV 88.9 MCH 29.0 MCHC 32.6 RDW Std Deviation 53.8 H RDW Coeff of [place] 17.7 H Plt Count 142 L MPV 10.0 Immature Gran % (Auto) 0.600 Neut % (Auto) 89.3 H Lymph % (Auto) 3.6 L [place] % (Auto) 6.3 Eos % (Auto) 0.0 Baso % (Auto) 0.2 Absolute Neuts (auto) 11.3 H Absolute Lymphs (auto) 0.45 L Nucleated RBC % 0 Sodium 135 Potassium 4.0 Chloride 105 Carbon Dioxide 20.5 L Anion Gap 10 BUN 55 H Creatinine 1.07 Estim Creat Clear Calc 56.82 Est GFR (MDRD) Non-Af 72 BUN/Creatinine Ratio 51.8 H Glucose 134 H Lactic Acid 1.7 Calcium 7.8 Total Bilirubin 0.68 Direct Bilirubin 0.38 H AST 52 H ALT 49 H Alkaline Phosphatase 143 H Troponin T High Sens 41 H Troponin T Hi Sens 2 Hr 34 H NT pro BNP II 782 Total Protein 5.3 L Albumin 2.6 L Globulin 2.6 ABG Data ABG results: ABG 01/06/25 13:34 Specimen Type RADHA Sample Site Not entered VBG pH 7.49 H VBG pO2 45 H VBG HCO3 21 L VBG Total CO2 22 L VBG O2 Sat (Calc) 85 H VBG Base Excess -3 L POC Mix VBG pCO2 Pt Tmp 27.6 L O2 Delivery Device Not entered Radiography Diagnostic Testing: Clinical Impression(s) from Imaging Studies Chest CTA 01/06/25 12:50 IMPRESSION: No evidence of pulmonary embolism. Very large right pleural effusion with complete collapse of the right lower lobe, near-complete collapse of the right middle lobe, and partial collapse of the right upper lobe. Large left pleural effusion with associated compressive atelectasis. Left upper lobe and lingular ground-glass opacities, likely representing an infectious or inflammatory process. Enlarged heterogeneous thyroid compatible with multinodular goiter. Multiple hepatic cysts and additional subcentimeter hypodensities too small to characterize but likely additional cysts. Upper abdominal ascites. Coronary artery calcifications. Reading Location: [address] Discharge Plan Triage Chief Complaint: Shortness of Breath ED Provider: Tova Campbell Dx/Rx/DC Orders Prescriptions: No Action amlodipine 5 mg tablet 5 mg PO QHS lisinopril 20 mg tablet 20 mg PO QHS hydrocortisone [Procto-Med HC] 2.5 % cream with perineal applicator 1 applic topical Q6H PRN (Reason: hemorrhoids) multivitamin Tablet 1 tab PO DAILY acetaminophen [Tylenol Arthritis Pain] 650 mg tablet extended release 650 mg PO Q8H PRN (Reason: pain) prochlorperazine maleate 10 mg tablet 10 mg PO Q6H PRN (Reason: nausea and vomiting) Qty: 30 2RF ondansetron 8 mg tablet,disintegrating 8 mg PO Q8H PRN (Reason: nausea and vomiting) Qty: 30 2RF lidocaine-prilocaine 2.5-2.5 % cream 1 applic topical ONCE PRN (Reason: port access) 30 Days Qty: 30 2RF sennosides [Senna Lax] 8.6 mg tablet 8.6 mg PO QDAY oxycodone 5 mg tablet 5 mg PO Q6H PRN Eliquis 5 mg tablet 2.5 mg PO BID nystatin 100,000 unit/gram powder 1 applic topical TID PRN Primary Care Provider: Davye Renteria Referrals: Davey Renteria MD [Primary Care Provider, Family Practice] Print Language: Russian
--- NOTE | 2025-01-06 12:50 | CT_ITS ---
PROCEDURE: CTA CHEST W/WO CONTRAST 01/06/2025 REASON FOR EXAM: RULE OUT PE TECHNIQUE: Procedure Code: [id number] Modality: CT Procedure: CTA CHEST W/WO CONTRAST Multiplanar Sagittal and Coronal images were obtained. One or more dose reduction techniques were used (e.g., Automated exposure control, adjustment of the mA and/or kV according to patient size, use of iterative reconstruction technique). COMPARISON: 11/04/2024 FINDINGS: The peripheral soft tissues unremarkable. No acute osseous abnormalities. Enlarged heterogeneous thyroid likely representing a multinodular goiter. Numerous hepatic cysts. Additional subcentimeter hypodense lesions that are too small to characterize but also favored to be cysts. Upper abdominal ascites. Normal caliber thoracic aorta. Coronary artery calcifications. The heart is normal in size. Very large right pleural effusion with complete collapse of the right lower lobe, near-complete collapse of the right middle lobe, and partial collapse of the right upper lobe. Large left pleural effusion with associated compressive atelectasis. Left upper lobe and lingular ground-glass opacity likely representing an infectious/inflammatory process. No visualized pulmonary artery filling defects. CT/CTA Chest W/WO Contrast IMPRESSION: No evidence of pulmonary embolism. Very large right pleural effusion with complete collapse of the right lower lob e, near-complete collapse of the right middle lobe, and partial collapse of the right upper lobe. Large left pleural effusion with associated compressive atelectasis. Left upper lobe and lingular ground-glass opacities, likely representing an inf ectious or inflammatory process. Enlarged heterogeneous thyroid compatible with multinodular goiter. Multiple hepatic cysts and additional subcentimeter hypodensities too small to characterize but likely additional cysts. Upper abdominal ascites. Coronary artery calcifications. Reading Location: [id number]
[2025-01-06 13:36] LABS: SITE Not entered; VBG BASE EXCESS -3 mmol/L (-1.0-3.5); VBG PO2 45 mmHg (25-40); VBG SO2 85 % (50-70); VBG TCO2 22 mmol/L (23-33)
[2025-01-06 13:37] LABS: Hematocrit 42.6 % (40-54); Hemoglobin 13.9 g/dL (13.0-16.5); Immature Granulocytes Count 0.070 X10^3/uL (0.0-0.0); Mean Corp Hgb Conc 32.6 g/dL (32-36); Mean Corpuscular Volume 88.9 fL (80-94); Mean Platelet Vol. 10.0 fl (6.2-12.0); NRBC Flagged by Analyzer 0 % (0-5); POSITIVE DIFFERENTIAL YES; Platelet Count 142 K/mm3 (150-450); RBC Distribution Width CV 17.7 % (11.6-14.6); RBC Distribution Width SD 53.8 fl (35.1-43.9); Red Blood Count 4.79 M/mm3 (4.6-6.2); White Blood Count 12.6 K/mm3 (4.4-11.0)
[2025-01-06 13:58] LABS: Anion Gap 10 (5-15); BUN 55 mg/dL (4-19); BUN/Creat Ratio 51.8 RATIO (10-20); Calcium,Total 7.8 mg/dL (7.6-11.0); Carbon Dioxide 20.5 mmol/L (21.0-32.0); Chloride 105 mmol/L (98-108); Estimated Creatinine Clearance 56.82 ml/min (50-250); Glucose 134 mg/dL (70-99); Potassium 4.0 mmol/L (3.3-5.1); Pro- Brain NATRIURETIC PEPTIDE 782 pg/mL (<=1800); Troponin T High Sensitivity 41 ng/L (<=22)
[2025-01-06 15:43] LABS: Troponin T High Sens 2 HR 34 ng/L (<=22)
[2025-01-06 15:44] LABS: AST(SGOT) 52 U/L (<=37); Alanine Aminotransfer ALT/SGPT 49 U/L (<=46); Albumin, Serum 2.6 g/dL (3.4-4.8); Alkaline Phosphatase 143 U/L (40-129); Bilirubin, Direct 0.38 mg/dL (0.00-0.30); Globulin 2.6 g/dL (2.2-4.2)
[2025-01-06] MEDS: Ceftriaxone 2 GM in 0.9% Normal Saline (50mL MB+) 50 ML IV (16:52)
--- NOTE | 2025-01-06 17:16 | PCA ---
THIS AGRICULTURAL LENDER CALLED PHYSICIANS TO SET UP TRANSPORT. THE ETA THEY GAVE WAS 6 HOURS, PUTTING THE ETA 2014. THIS AGRICULTURAL LENDER REQUESTED THEY OUTSOURCE AND CALL BACK WITH AN UPDATE
--- NOTE | 2025-01-06 17:21 | PCA ---
THIS PEDIATRIC GENETIC COUNSELOR CALLED PHYSICIANS TO SET UP TRANSPORT TO [facility]. THEY GAVE THE ETA OF 6 HOURS. PUTTING CATH LAB TIME TO BE 3225. THIS PEDIATRIC GENETIC COUNSELOR REQUESTED THEY OUTSOURCE AND CALL BACK WITH AN UPDATE
--- NOTE | 2025-01-06 17:43 | PCA ---
THIS PILOT RECEIVED A CALL FROM PHYSICIANS ABOUT OUTSOURCE FOR PT. [facility] IS COMING TO TAKE PT. THEY WILL BE HERE AT [id number]
[2025-01-06 17:47] LABS: Troponin T High Sens 4 HR 34 ng/L (<=22)
[2025-01-06] MEDS: Doxycycline 100 MG in 0.9% Normal Saline (250mL Bag) 250 ML 250 MG IV (17:56)
--- NOTE | 2025-01-06 18:18 | ED.RN ---
Report called to [facility]
--- NOTE | 2025-01-06 18:41 | ED.RN ---
spoke with [facility], pt new onset afib RVR- will reach out to physician and bed control to change units.
== END 2025-01-06 19:13 | disposition short-term general hospital (02) ==
PROVIDERS: Emergency Provider Student in an Organized Health Care Education/Training Program; PCP Family Medicine; Visit Provider Student in an Organized Health Care Education/Training Program
DX: R06.02 Shortness of breath (principal); I48.91 Unspecified atrial fibrillation; I10 Essential (primary) hypertension; E78.5 Hyperlipidemia, unspecified; Z87.891 Personal history of nicotine dependence; Z86.711 Personal history of pulmonary embolism; Z79.01 Long term (current) use of anticoagulants; Z85.46 Personal history of malignant neoplasm of prostate; Z92.21 Personal history of antineoplastic chemotherapy; Z85.89 Personal history of malignant neoplasm of other organs and systems; Z79.899 Other long term (current) drug therapy; J90 Pleural effusion, not elsewhere classified
CPT/HCPCS: 71275; 80048; 80076; 82803; 83605; 83880; 84484; 85025; 87040; 87631; 93005; 94640; 96365; 96368; 99285; Q9967; A4216; J0696